=== PATIENT | female | born 1960 | race Caucasian/White ===

== ENCOUNTER 2016-09-04 20:35 | Emergency (ER) | payer SELFPAY ==
[~2016-09-04] VITALS: Ht 172.7 cm; Wt 54.5 kg
[~2016-09-04 20:35] MED LIST: BACTRIM DS 8001 TAB PO; CEPHALEXIN500 M1 PO; FLOVENT 110MCG7.9 GM IH; FOLIC ACID 11 MG/TA1 PO; LORTAB 5/500 501 TAB PO; MULTI VITAMINS1 TAB PO; NATURE'S BLEND100 M2 PO; PREDNISONE20 MG PO; PROVENTIL0.09 MG/A1 IH; TENORMIN 2525 MG/TAB PO; VENTOLIN0.09 MG IH
[2016-09-04 20:36] VITALS: PULSE 100; TEMP 98.1
[2016-09-04] MEDS ORDERED: ULTRAM 50MG TAB50 MG PO (21:12)
[2016-09-04 22:34] VITALS: BP 127/88
== END 2016-09-04 22:48 | disposition home or self-care (01) ==
LOC: COL.ER 20:35
DX: F10.120 Alcohol abuse with intoxication, uncomplicated (principal); Y90.8 Blood alcohol level of 240 mg/100 ml or more; M25.552 Pain in left hip; W01.198A Fall on same level from slipping, tripping and stumbling with subsequent striking against other object, initial encounter; Y92.009 Unspecified place in unspecified non-institutional (private) residence as the place of occurrence of the external cause; I10 Essential (primary) hypertension
CPT/HCPCS: J1885

== ENCOUNTER 2017-10-26 15:58 | Inpatient (IN) | payer SELFPAY ==
[~2017-10-26] VITALS: Ht 175.3 cm; Wt 55.9 kg
[~2017-10-26 15:58] MED LIST changes: +ULTRAM 50MG TAB50 MG PO
[2017-10-26 16:50] LABS: BASO # 0.1 (0.0-0.2); BASO % 1.2 % (0.0-2.0); EOS # 0.1 (0.0-0.7); EOS % 1.6 % (0-4.0); GRAN # 1.8 (1.4-6.5); GRAN % 41.6 % (42.2-75.2); HEMATOCRIT 40.7 % (37.0-47.0); HEMOGLOBIN 14.1 g/dl (12.5-16.0); LYMPH % 46.4 % (20.0-51.0); MEAN CELL VOLUME 100 fl (80.0-100.0); MEAN CORPUSCULAR HEMOGLOBIN 35 pg (27.0-31.0); MEAN CORPUSCULAR HGB CONC 35 g/dl (33.0-37.0); MONO # 0.4 (0.1-0.6); MONO % 8.7 % (1.7-9.3); PLATELET COUNT 120 K/mm3 (130-400); RED BLOOD COUNT 4.09 M/mm3 (4.10-5.30); REDCELL DISTRIBUTION WIDTH-CV 17.7 % (11.5-14.5)
[2017-10-26] MEDS ORDERED: PREDNISONE20 MG PO (17:52)
[2017-10-26] MEDS ORDERED: PROVENTIL0.09 MG/A1 IH (17:52)
[2017-10-26 17:57] LABS: INR 0.9 (0.8-3.0); PROTHROMBIN TIME 10.9 SECONDS (9.7-12.8)
[2017-10-26 18:00] LABS: PARTIAL THROMBOPLASTIN TIME 32.6 SECONDS (26.0-37.0)
[2017-10-26 18:01] LABS: ALANINE AMINOTRANSFERASE 228 U/L (9-52); ALBUMIN 4.6 gm/dL (3.5-5.0); ALKALINE PHOSPHATASE 134 U/L (50-136); ANION GAP 19 mmol/L (7-16); AST,SGOT 309 U/L (15-37); BILIRUBIN,TOTAL 0.6 mg/dL (0.0-1.0); BLOOD UREA NITROGEN 10 mg/dL (7-17); CALCIUM 8.7 mg/dL (8.4-10.2); CARBON DIOXIDE 26 mmol/L (22-30); CHLORIDE 98 mmol/L (98-107); CREATININE, serum 0.55 mg/dL (0.52-1.25); GLUCOSE 80 mg/dL (74-106); POTASSIUM 4.2 mmol/L (3.4-5.0); SODIUM 142 mmol/L (137-145); TOTAL PROTEIN 7.8 gm/dL (6.4-8.2)
[2017-10-26 18:09] LABS: ALCOHOL(ethanol),MEDICAL 370 mg/dL
[2017-10-26 18:12] LABS: TROPONIN-I < 0.012 ng/mL (0.000-0.034)
[2017-10-26 20:40] VITALS: BP 141/84; PULSE 111; TEMP 98.8
[2017-10-26] MEDS ORDERED: MULTI VITAMINS1 TAB PO (20:50)
[2017-10-26] MEDS ORDERED: ADVIL200 MG PO (20:51)
[2017-10-26 21:09] LABS: ARTERIAL BLD GAS O2 SATURATION 95.7 % (92-100); ARTERIAL BLD GAS TCO2 CT 20.4; ARTERIAL BLOOD GAS BASE EXCESS -6.2 (-2-2); ARTERIAL BLOOD GAS HCO3 19.2 meq/L (22-26); ARTERIAL BLOOD GAS PCO2 37.7 mmHg (35-45); ARTERIAL BLOOD GAS PO2 89.3 mmHg (80-100); ARTERIAL BLOOD GAS pH 7.33 (7.35-7.45)
[2017-10-26 22:44] VITALS: BP 91/75; PULSE 110; TEMP 98.8
[2017-10-26 23:25] LABS: COLLECTION METHOD CLEAN CATCH
[2017-10-26 23:36] LABS: MUCOUS Present /lpf; PH 5 (5-8); SQUAMOUS EPITHELIAL 0-2 /hpf; URINE APPEARANCE Clear; URINE BACTERIA None Seen /hpf; URINE BILIRUBIN Negative (NEGATIVE); URINE BLOOD 1+ (NEGATIVE); URINE COLOR Yellow; URINE GLUCOSE Negative (NEGATIVE); URINE KETONE 2+ (NEGATIVE); URINE LEUKOCYTE ESTERASE Negative (NEGATIVE); URINE NITRATE Negative (NEGATIVE); URINE PROTEIN(semi-quant) Negative (NEGATIVE); URINE RBC 0-2 /hpf; URINE UROBILINOGEN Negative (NEGATIVE); URINE WBC 0-2 /hpf
[2017-10-26 23:55] LABS: TRICYCLIC ANTIDEPRESS URINE NEGATIVE
[2017-10-27] VITALS (12 sets, daily range): BP systolic 94–148; BP diastolic 52–95; PULSE 102–123; TEMP 98.1–99.4
[2017-10-27 06:25] LABS: MEAN CELL VOLUME 101 fl (80.0-100.0); MEAN CORPUSCULAR HGB CONC 34 g/dl (33.0-37.0); MEAN PLATELET VOLUME 10.8 fl (7.4-10.4); PLATELET COUNT 84 K/mm3 (130-400); RED BLOOD COUNT 3.41 M/mm3 (4.10-5.30); REDCELL DISTRIBUTION WIDTH-CV 17.4 % (11.5-14.5)
[2017-10-27 06:35] LABS: HEMATOCRIT 34.4 % (37.0-47.0); HEMOGLOBIN 11.8 g/dl (12.5-16.0); MEAN CORPUSCULAR HEMOGLOBIN 35 pg (27.0-31.0)
[2017-10-27 06:36] LABS: BILIRUBIN,TOTAL 0.7 mg/dL (0.0-1.0); CALCIUM 7.6 mg/dL (8.4-10.2); CREATININE, serum 0.51 mg/dL (0.52-1.25); POTASSIUM 4.1 mmol/L (3.4-5.0); TOTAL PROTEIN 6.9 gm/dL (6.4-8.2)
[2017-10-27 07:55] LABS: ANISOCYTOSIS 2+; BAND 8 % (0-10); LYMPHOCYTE 8 % (20.0-51.0); NEUTROPHILS 84 % (42.0-75.2); NUCLEATED RED BLOOD CELL 1 (0-6); PLATELET ESTIMATE DECREASED (NORMAL)
[2017-10-28] VITALS (7 sets, daily range): BP systolic 122–155; BP diastolic 65–103; PULSE 109–132; TEMP 98.1–98.9
[2017-10-28 06:35] LABS: BASO % 0.2 % (0.0-2.0); GRAN # 5.1 (1.4-6.5); GRAN % 88.2 % (42.2-75.2); HEMOGLOBIN 12.2 g/dl (12.5-16.0); LYMPH # 0.2 (1.2-3.4); MEAN CELL VOLUME 99 fl (80.0-100.0); MEAN CORPUSCULAR HEMOGLOBIN 34 pg (27.0-31.0); MEAN CORPUSCULAR HGB CONC 34 g/dl (33.0-37.0); MEAN PLATELET VOLUME 11.1 fl (7.4-10.4); MONO # 0.4 (0.1-0.6); MONO % 6.9 % (1.7-9.3); PLATELET COUNT 78 K/mm3 (130-400); REDCELL DISTRIBUTION WIDTH-CV 16.6 % (11.5-14.5)
[2017-10-28 06:52] LABS: HEMATOCRIT 35.5 % (37.0-47.0)
[2017-10-28 06:55] LABS: CALCIUM 8.9 mg/dL (8.4-10.2); CREATININE, serum 0.53 mg/dL (0.52-1.25); POTASSIUM 3.1 mmol/L (3.4-5.0)
== END 2017-10-28 14:54 | disposition left against medical advice (07) | DRG 191 ==
LOC: COL.ER 15:58 → MEDICAL 19:32
PROVIDERS: Family Medicine; Nurse Practitioner Family; Physician Assistant
DX: J44.1 Chronic obstructive pulmonary disease with (acute) exacerbation (principal); F10.239 Alcohol dependence with withdrawal, unspecified; R91.1 Solitary pulmonary nodule; R26.9 Unspecified abnormalities of gait and mobility; R00.0 Tachycardia, unspecified; F17.210 Nicotine dependence, cigarettes, uncomplicated; Y90.8 Blood alcohol level of 240 mg/100 ml or more
CPT/HCPCS: 99232-AI; 99238; C9113; G0378; J1650; J1956; J2405; J2930; J7030; J7512; Q9967

== ENCOUNTER 2018-03-12 18:36 | Emergency (ER) | payer SELFPAY ==
[~2018-03-12] VITALS: Ht 175.3 cm; Wt 54.5 kg
[~2018-03-12 18:36] MED LIST changes: +ADVIL200 MG PO
[2018-03-12 18:37] VITALS: TEMP 98.6
[2018-03-12 19:27] LABS: BASO % 0.6 % (0.0-2.0); EOS # 0.1 (0.0-0.7); EOS % 1.8 % (0-4.0); GRAN # 2.5 (1.4-6.5); GRAN % 38.2 % (42.2-75.2); HEMATOCRIT 40.1 % (37.0-47.0); LYMPH # 3.5 (1.2-3.4); LYMPH % 53.2 % (20.0-51.0); MEAN CELL VOLUME 99 fl (80.0-100.0); MEAN CORPUSCULAR HEMOGLOBIN 35 pg (27.0-31.0); MEAN CORPUSCULAR HGB CONC 35 g/dl (33.0-37.0); MEAN PLATELET VOLUME 10.7 fl (7.4-10.4); MONO # 0.4 (0.1-0.6); PLATELET COUNT 156 K/mm3 (130-400); RED BLOOD COUNT 4.06 M/mm3 (4.10-5.30); REDCELL DISTRIBUTION WIDTH-CV 14.6 % (11.5-14.5)
[2018-03-12 19:32] LABS: PROTHROMBIN TIME 10.8 SECONDS (9.7-12.8)
[2018-03-12 19:38] LABS: ALANINE AMINOTRANSFERASE 68 U/L (9-52); ALBUMIN 4.3 gm/dL (3.5-5.0); ALKALINE PHOSPHATASE 84 U/L (50-136); ANION GAP 15 mmol/L (7-16); AST,SGOT 85 U/L (15-37); BILIRUBIN,TOTAL 0.3 mg/dL (0.0-1.0); BLOOD UREA NITROGEN 14 mg/dL (7-17); CALCIUM 10.3 mg/dL (8.4-10.2); CARBON DIOXIDE 25 mmol/L (22-30); CHLORIDE 103 mmol/L (98-107); CREATININE, serum 0.73 mg/dL (0.52-1.25); GLUCOSE 101 mg/dL (74-106); POTASSIUM 4.2 mmol/L (3.4-5.0); SODIUM 143 mmol/L (137-145); TOTAL PROTEIN 8.1 gm/dL (6.4-8.2)
[2018-03-12 19:50] LABS: TROPONIN-I < 0.012 ng/mL (0.000-0.034)
[2018-03-12] MEDS ORDERED: ZITHROMAX Z PA250 MG PO (20:54)
[2018-03-12] MEDS ORDERED: PREDNISONE20 MG PO (20:54)
[2018-03-12 21:32] VITALS: BP 131/71; PULSE 92
== END 2018-03-12 21:32 | disposition home or self-care (01) ==
LOC: COL.ER 18:36
PROVIDERS: Emergency Medicine
DX: J45.901 Unspecified asthma with (acute) exacerbation (principal); F17.210 Nicotine dependence, cigarettes, uncomplicated
CPT/HCPCS: J2930; J3105; J3475; J7030

== ENCOUNTER → 2018-04-21 | Outpatient (CLI) | payer SELFPAY ==
[~2018-04-21] MED LIST changes: +ZITHROMAX Z PA250 MG PO
== END ==
LOC: COL.RAD 09:27
DX: R91.1 Solitary pulmonary nodule (principal)
CPT/HCPCS: Q9967

== ENCOUNTER 2018-04-23 18:43 | Emergency (ER) | payer SELFPAY ==
[~2018-04-23] VITALS: Ht 175.3 cm; Wt 55.9 kg
[2018-04-23] MEDS ORDERED: MULTI VITAMINS1 TAB PO (19:01)
[2018-04-23 19:42] LABS: BASO % 0.7 % (0.0-2.0); EOS # 0.2 (0.0-0.7); EOS % 4.4 % (0-4.0); GRAN # 1.5 (1.4-6.5); GRAN % 32.1 % (42.2-75.2); HEMOGLOBIN 12.6 g/dl (12.5-16.0); LYMPH # 2.6 (1.2-3.4); LYMPH % 57.1 % (20.0-51.0); MEAN CELL VOLUME 100 fl (80.0-100.0); MEAN CORPUSCULAR HEMOGLOBIN 35 pg (27.0-31.0); MEAN CORPUSCULAR HGB CONC 35 g/dl (33.0-37.0); MEAN PLATELET VOLUME 11.1 fl (7.4-10.4); MONO # 0.3 (0.1-0.6); MONO % 5.7 % (1.7-9.3); PLATELET COUNT 131 K/mm3 (130-400); RED BLOOD COUNT 3.64 M/mm3 (4.10-5.30); REDCELL DISTRIBUTION WIDTH-CV 15.5 % (11.5-14.5)
[2018-04-23 19:47] LABS: HEMATOCRIT 36.5 % (37.0-47.0)
[2018-04-23 19:52] LABS: TRICYCLIC ANTIDEPRESS URINE NEGATIVE
[2018-04-23 19:54] LABS: ALANINE AMINOTRANSFERASE 90 U/L (9-52); ALBUMIN 4.2 gm/dL (3.5-5.0); ALKALINE PHOSPHATASE 77 U/L (50-136); ANION GAP 15 mmol/L (7-16); AST,SGOT 118 U/L (15-37); BILIRUBIN,TOTAL 0.3 mg/dL (0.0-1.0); BLOOD UREA NITROGEN 7 mg/dL (7-17); CALCIUM 8.9 mg/dL (8.4-10.2); CARBON DIOXIDE 26 mmol/L (22-30); CHLORIDE 104 mmol/L (98-107); CREATININE, serum 0.62 mg/dL (0.52-1.25); GLUCOSE 87 mg/dL (74-106); SODIUM 145 mmol/L (137-145); TOTAL PROTEIN 7.6 gm/dL (6.4-8.2)
[2018-04-23 20:10] LABS: ACETAMINOPHEN < 10 ug/mL (10-30); ALCOHOL(ethanol),MEDICAL 397 mg/dL; SALICYLATE < 1.0 mg/dL
[2018-04-24 06:15] VITALS: BP 154/90; TEMP 99.3
[2018-04-24 07:54] VITALS: PULSE 90
== END 2018-04-24 07:59 | disposition home or self-care (01) ==
LOC: COL.ER 18:43
PROVIDERS: Emergency Medicine
DX: F10.229 Alcohol dependence with intoxication, unspecified (principal); R45.851 Suicidal ideations; F32.9 Major depressive disorder, single episode, unspecified; J45.909 Unspecified asthma, uncomplicated; F17.210 Nicotine dependence, cigarettes, uncomplicated

== ENCOUNTER 2018-05-21 12:55 | Emergency (ER) | payer SELFPAY ==
[~2018-05-21] VITALS: Ht 175.3 cm; Wt 55.9 kg
[2018-05-21 12:59] VITALS: BP 144/91; TEMP 98
[2018-05-21 14:35] VITALS: PULSE 86
== END 2018-05-21 14:36 | disposition home or self-care (01) ==
LOC: COL.ER 12:55
DX: S01.82XA Laceration with foreign body of other part of head, initial encounter (principal); F17.210 Nicotine dependence, cigarettes, uncomplicated; W01.198A Fall on same level from slipping, tripping and stumbling with subsequent striking against other object, initial encounter; Y92.009 Unspecified place in unspecified non-institutional (private) residence as the place of occurrence of the external cause

== ENCOUNTER 2018-06-01 19:22 | Emergency (ER) | payer SELFPAY ==
[~2018-06-01] VITALS: Ht 175.3 cm; Wt 55.9 kg
[2018-06-01 19:24] VITALS: TEMP 97
[2018-06-01] MEDS ORDERED: PROAIR HFA0.09 MG/AC IH (19:32)
[2018-06-01 22:00] VITALS: BP 129/83; PULSE 85
[2018-06-01] MEDS ORDERED: PREDNISONE10 MG PO (22:28)
== END 2018-06-01 22:00 | disposition home or self-care (01) ==
LOC: COL.ER 19:22
DX: J45.901 Unspecified asthma with (acute) exacerbation (principal); F17.210 Nicotine dependence, cigarettes, uncomplicated; F41.9 Anxiety disorder, unspecified; F10.129 Alcohol abuse with intoxication, unspecified
CPT/HCPCS: J7512

== ENCOUNTER 2018-08-14 12:29 | Emergency (ER) | payer SELFPAY ==
[~2018-08-14] VITALS: Ht 175.3 cm; Wt 56.8 kg
[~2018-08-14 12:29] MED LIST changes: +PREDNISONE10 MG PO; +PROAIR HFA0.09 MG/AC IH
[2018-08-14 12:35] VITALS: BP 139/100; TEMP 97
[2018-08-14] MEDS ORDERED: NEURONTIN300 MG/CAP PO (13:04)
[2018-08-14] MEDS ORDERED: ATARAX 25MG25 MG/TAB PO (13:59)
[2018-08-14] MEDS ORDERED: PREDNISONE20 MG PO (13:59)
[2018-08-14] MEDS ORDERED: ZYRTEC 10MG10 MG PO (13:59)
[2018-08-14 14:08] VITALS: PULSE 96
== END 2018-08-14 14:09 | disposition home or self-care (01) ==
LOC: COL.ER 12:29
DX: L30.9 Dermatitis, unspecified (principal); J45.909 Unspecified asthma, uncomplicated; F17.210 Nicotine dependence, cigarettes, uncomplicated

== ENCOUNTER 2018-10-15 14:23 | Inpatient (IN) | payer OTHER ==
[~2018-10-15] VITALS: Ht 175.3 cm; Wt 57.1 kg
[~2018-10-15 14:23] MED LIST changes: +ATARAX 25MG25 MG/TAB PO; +NEURONTIN300 MG/CAP PO; +ZYRTEC 10MG10 MG PO
[2018-10-15 14:58] LABS: HEMATOCRIT 41.5 % (37.0-47.0); HEMOGLOBIN 14.3 g/dl (12.5-16.0); MEAN CELL VOLUME 104 fl (80.0-100.0); MEAN CORPUSCULAR HEMOGLOBIN 36 pg (27.0-31.0); MEAN CORPUSCULAR HGB CONC 35 g/dl (33.0-37.0); MEAN PLATELET VOLUME 10.3 fl (7.4-10.4); PLATELET COUNT 62 K/mm3 (130-400); REDCELL DISTRIBUTION WIDTH-CV 18.5 % (11.5-14.5)
[2018-10-15 15:08] LABS: ALANINE AMINOTRANSFERASE 145 U/L (9-52); ALBUMIN 4.1 gm/dL (3.5-5.0); ALKALINE PHOSPHATASE 196 U/L (50-136); ANION GAP 15 mmol/L (7-16); AST,SGOT 559 U/L (15-37); BILIRUBIN,TOTAL 1.3 mg/dL (0.0-1.0); BLOOD UREA NITROGEN 8 mg/dL (7-17); CALCIUM 8.5 mg/dL (8.4-10.2); CARBON DIOXIDE 29 mmol/L (22-30); CHLORIDE 98 mmol/L (98-107); GLUCOSE 69 mg/dL (74-106); POTASSIUM 3.7 mmol/L (3.4-5.0); SODIUM 143 mmol/L (137-145); TOTAL PROTEIN 7.7 gm/dL (6.4-8.2)
[2018-10-15 15:20] LABS: TROPONIN-I < 0.012 ng/mL (0.000-0.035)
[2018-10-15 15:22] LABS: BAND 4 % (0-10); BASOPHIL 2 % (0-2); EOSINOPHIL 2 % (0-4); LYMPHOCYTE 43 % (20.0-51.0); NEUTROPHILS 47 % (42.0-75.2)
[2018-10-15 15:23] LABS: PLATELET ESTIMATE DECREASED (NORMAL)
[2018-10-15 15:24] LABS: ANISOCYTOSIS 2+; MICROCYTOSIS 1+; TARGET CELLS 2+
[2018-10-15 15:25] LABS: STOMATOCYTE 2+
[2018-10-15 16:20] LABS: ARTERIAL BLD GAS O2 SATURATION 91.3 % (92-100); ARTERIAL BLD GAS TCO2 CT 27.1; ARTERIAL BLOOD GAS BASE EXCESS -1.1 (-2-2); ARTERIAL BLOOD GAS HCO3 25.6 meq/L (22-26); ARTERIAL BLOOD GAS PCO2 50.8 mmHg (35-45); ARTERIAL BLOOD GAS PO2 78.2 mmHg (80-100); ARTERIAL BLOOD GAS pH 7.32 (7.35-7.45)
[2018-10-15 17:49] VITALS: BP 126/95; PULSE 100; TEMP 97.9
[2018-10-15] MEDS ORDERED: MULTI VITAMINS1 TAB PO (17:59)
--- NOTE | 2018-10-15 18:15 | NUR ---
pT arrived to unit, A+Ox3, pleasant, denies pain, denies SOB but is audibly SOB with speech. 6 L via oxymask applied at this time, this RN called RT to request Bipap per orders. Lungs are very coarse and wheezey throughout. Pt has rash with non-raised red broad splotches across back, front torso, arms, and ears. Pt reports this is new as of 1-2 weeks ago, and itches terribly despite three home meds prescribed by PCP for this. She needs to see employment training specialist but has no insurance. Physical assessment completed. IV free of redness, swelling, fluids infusing to RAC. No further needs, will continue to monitor
[2018-10-15 18:51] VITALS: BP 131/82; PULSE 106; TEMP 97.6
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
--- NOTE | 2018-10-15 19:58 | NUR ---
Report given to Ugo MERAZ
--- NOTE | 2018-10-15 20:23 | NUR ---
Pt resting in bed napping, no C/O pain, shift assessment complete, left Pt call light in reach, bed in lowest position.
[2018-10-15 20:45] LABS: PROTHROMBIN TIME 11.6 SECONDS (9.7-12.8)
[2018-10-15 23:37] VITALS: BP 130/87; PULSE 103; TEMP 97.9
[2018-10-16] VITALS (8 sets, daily range): BP systolic 118–154; BP diastolic 67–902; PULSE 95–125; TEMP 98.1–99.3
--- NOTE | 2018-10-16 06:37 | NUR ---
Pt slept well during the night, she has been tolerating the BIPAP well, no C/O pain, VS have remained stable.
[2018-10-16 07:42] LABS: HIV 1/2 Antibodies Non-Reactive; HIV-1p24 Antigen Non-Reactive
--- NOTE | 2018-10-16 08:05 | NUR ---
Asssessment completed, alert/oriented, patient still having labored breathing but stated it is improved from yesterday, has some bilateral wheezing noted and diminished bases, wore bi-pap during the night and is now back on 6L.OM and sats WNL, She scored and 7 on ETOH DETOX scale this morning for Tachycardia/ HTN/ visible Tremors/ Anxiety, I gave 1 mg IV Ativan per protocol, heart regular / ST 120 on tele, in droplet precautions for pending RVP, helped her order breakfast, denies othe needs at this time
[2018-10-16 09:01] LABS: ARTERIAL BLD GAS O2 SATURATION 93.2 % (92-100); ARTERIAL BLD GAS TCO2 CT 21.9; ARTERIAL BLOOD GAS BASE EXCESS -3.3 (-2-2); ARTERIAL BLOOD GAS HCO3 20.9 meq/L (22-26); ARTERIAL BLOOD GAS PCO2 34.6 mmHg (35-45); ARTERIAL BLOOD GAS PO2 74.8 mmHg (80-100)
[2018-10-16 13:03] LABS: BASO % 0.3 % (0.0-2.0); EOS % 0.3 % (0-4.0); GRAN # 3.1 (1.4-6.5); GRAN % 85.2 % (42.2-75.2); LYMPH # 0.3 (1.2-3.4); LYMPH % 8.9 % (20.0-51.0); MEAN CELL VOLUME 102 fl (80.0-100.0); MEAN CORPUSCULAR HGB CONC 35 g/dl (33.0-37.0); MEAN PLATELET VOLUME 11.1 fl (7.4-10.4); MONO # 0.2 (0.1-0.6); MONO % 4.7 % (1.7-9.3); PLATELET COUNT 50 K/mm3 (130-400); RED BLOOD COUNT 3.36 M/mm3 (4.10-5.30); REDCELL DISTRIBUTION WIDTH-CV 18.1 % (11.5-14.5)
[2018-10-16 13:09] LABS: HEMATOCRIT 34.3 % (37.0-47.0); MEAN CORPUSCULAR HEMOGLOBIN 36 pg (27.0-31.0)
[2018-10-16 13:14] LABS: ALBUMIN 3.4 gm/dL (3.5-5.0); CALCIUM 7.6 mg/dL (8.4-10.2); CREATININE, serum 0.64 mg/dL (0.52-1.25); MAGNESIUM 1.1 mg/dL (1.6-2.3); TOTAL PROTEIN 6.5 gm/dL (6.4-8.2)
[2018-10-16 13:27] LABS: BILIRUBIN UNCONJUGATED 0.6 mg/dL (0.0-1.1); BILIRUBIN,DIRECT 0.7 mg/dL (0.0-0.4); BILIRUBIN,TOTAL 1.3 mg/dL (0.0-1.0)
--- NOTE | 2018-10-16 14:25 | NUR ---
Patient lives at home with her (Rohit) between [place], [place] and plans to return home upon discharge. Patient is independent with daily living activities and does not have durable medical equipment usage or needs at this time, her primary care physician is Chen Jimenes, her [facility] is [facility], and she does not have DPOA-HC completed at this time. Patient is currently unemployed and is self-pay. medical services manager and the [facility] financial department will follow as needed.
[2018-10-16 16:40] LABS: HEPATITIS B SURFACE ANTIGEN Negative (Negative)
[2018-10-16 16:55] LABS: HEPATITIS B SURFACE ANTIBODY <2.0 (())
--- NOTE | 2018-10-16 19:12 | NUR ---
Gave patient Sirax at 1645, will hold off on giving more Ativan with his 1800 CIWA protocol , will have night nurse reassess at 1999
--- NOTE | 2018-10-16 21:06 | NUR ---
Patient assessed at this time. Was sleeping when this nurse entered room. No tremors noted. Awakened easily to verbal stimuli. Tremors when awake. Heart rate was in the 120s, and systolic BP was in the 140s. Temp 99. Given scheduled Serex, will reassess during 2200 check. Denies having pain and discomfort at this time. Oxygen on at 2 L/min via oxi mask. Declined wanting to try NC and BIPAP when RT was talking with her. Declined for this nurse as well. Denies having SOB and dyspnea. LS CTA. Respirations are even and unlabored. NS running at 75 ml/hr to right AC. Assisted to the commode at the beginning of shift, around 1900. Very unsteady. Unable to come to a full, upright standing position. Denies having needs at this time. Resting in bed with eyes closed at this time. Head of bed elevated. Call light is within reach.
[2018-10-17 01:57] VITALS: BP 128/93; PULSE 100; TEMP 98.1
[2018-10-17 03:32] VITALS: BP 129/95; PULSE 101; TEMP 98.2
--- NOTE | 2018-10-17 04:12 | NUR ---
Patient ambulated to bathroom as requested with two assist and use of gait belt. Patient did well. Gait was slowy and unsteady, but did stand straig. Non-skid socks applied. Urine dark yellow and clear. Ambulated with one assist back to bed when done. NS continues at 75 ml/hr to right AC. Continues to wear oxygen at 2 L/min via oxymask. Patient's tremors have decreased to minimal. Heart rate has been around 100. Systolic BP has been in the 120s, but dyastolic has been in the 90s. No further temperatures of 99 or higher. No diaphoresis. Denies having anxiety. Has been able to rest in bed with eyes closed most of this shift, since receiving Ativan around 2230. Resting in bed with eyes closed at this time. Call light is within reach.
[2018-10-17 05:04] VITALS: BP 147/90; PULSE 96; TEMP 98
--- NOTE | 2018-10-17 06:01 | NUR ---
Patient scored a 4 with latest alcohol detox screen. Given PRN 0.5mg Ativan IV per order. Patient's BP has increased to 140s over 90s. Patient's tremors have increased as well. Patient reports tremors do increase for her when she is awake compared to when she is asleep. Denies having any needs at this time. Call light is within reach.
[2018-10-17 07:09] LABS: HEMOGLOBIN 12.5 g/dl (12.5-16.0); MEAN CELL VOLUME 102 fl (80.0-100.0); MEAN CORPUSCULAR HEMOGLOBIN 36 pg (27.0-31.0); MEAN CORPUSCULAR HGB CONC 35 g/dl (33.0-37.0); MEAN PLATELET VOLUME 11.6 fl (7.4-10.4); PLATELET COUNT 51 K/mm3 (130-400); RED BLOOD COUNT 3.46 M/mm3 (4.10-5.30); REDCELL DISTRIBUTION WIDTH-CV 17.9 % (11.5-14.5)
[2018-10-17 07:18] LABS: ALBUMIN 3.3 gm/dL (3.5-5.0); BILIRUBIN UNCONJUGATED 0.7 mg/dL (0.0-1.1); BILIRUBIN,DIRECT 0.7 mg/dL (0.0-0.4); BILIRUBIN,TOTAL 1.4 mg/dL (0.0-1.0); CALCIUM 7.7 mg/dL (8.4-10.2); CREATININE, serum 0.46 mg/dL (0.52-1.25); POTASSIUM 3.8 mmol/L (3.4-5.0); TOTAL PROTEIN 6.7 gm/dL (6.4-8.2)
[2018-10-17 07:22] LABS: HEMATOCRIT 35.3 % (37.0-47.0)
[2018-10-17 07:30] LABS: MAGNESIUM 2.1 mg/dL (1.6-2.3); PHOSPHOROUS 1.5 mg/dL (2.5-4.5)
[2018-10-17 07:38] VITALS: BP 144/94; PULSE 100; TEMP 98.5
--- NOTE | 2018-10-17 07:54 | NUR ---
Resting in bed at this time. No pain or needs reported. The call light is in place.
[2018-10-17 10:24] VITALS: BP 149/83; PULSE 116; TEMP 97.4
[2018-10-17] MEDS ORDERED: LEVAQUIN 5500 MG/TA1 PO (10:34)
[2018-10-17] MEDS ORDERED: INCRUSE EL62.5 MCG/A IH ×2 (10:34)
[2018-10-17] MEDS ORDERED: PROAIR HFA0.09 MG/AC IH (10:35)
[2018-10-17] MEDS ORDERED: SALMETEROL IH (10:36)
[2018-10-17] MEDS ORDERED: FLUTICASONE IH (10:36)
[2018-10-17] MEDS ORDERED: DALIRESP500 MCG PO (10:37)
[2018-10-17] MEDS ORDERED: FOLIC ACID 11 MG/TA1 PO (10:37)
[2018-10-17] MEDS ORDERED: THIAMINE 1100 MG/TAB PO (10:37)
[2018-10-17] MEDS ORDERED: PREDNISONE10 MG PO (10:39)
--- NOTE | 2018-10-17 12:15 | NUR ---
SPO2 93% ON ROOM AIR. PT WALKED WITH RT AND RN APPROX 100 FEET. VERY UNSTEADY ON HER FEET. SPO2 88% AFTER ABOUT 50 FT. O2 BACK ON @ 2 LPM VIA OXYMASK.
[2018-10-17 12:28] LABS: BAND 8 % (0-10); HYPOCHROMIA 1+; LYMPHOCYTE 7 % (20.0-51.0); NEUTROPHILS 83 % (42.0-75.2); PLATELET ESTIMATE DECREASED (NORMAL)
--- NOTE | 2018-10-17 14:19 | NUR ---
PERFECTO informed patient is discharging AMA today and will need home O2. PERFECTO met with patient about DME choice. Patient chose [facility] because they accept financial assistance. PERFECTO faxed O2 order to [facility].
[2018-10-17] MEDS ORDERED: RT ADVAIR 228 DISKUS IH (15:08)
[2018-10-17] MEDS ORDERED: RT SPIRIVA18 MCG IH (15:08)
--- NOTE | 2018-10-17 16:11 | NUR ---
Pt very shaky, anxious to leave. Pt is leaving AMA. New prescriptions and home oxygen have been arranged for pt. Reviewed new medications. Pt information sheets on all meds and diagnoses given to pt. Encouraged pt to follow up with her PCP and to call PCP with any increase in symptoms. Pt verbalizes understanding. Pt escorted to private vehicle via wheelchair by JOELLE.
--- NOTE | 2018-10-17 17:28 | NUR ---
KT Luz assisted with DC process. The patient continued to show weakness and loss of balance but refused to stay in the hospital. Oxygen was set up for home and medication provided to the patient's pharmacy.
[2018-10-19 19:40] LABS: A1 PHENOTYPE 182 mg/dL (())
== END 2018-10-17 18:22 | disposition left against medical advice (07) | DRG 189 ==
LOC: COL.ER 14:23 → MEDICAL 16:10
PROVIDERS: Emergency Medicine; Internal Medicine Pulmonary Disease; ADMIT Hospitalist
DX: J96.01 Acute respiratory failure with hypoxia (principal); J44.1 Chronic obstructive pulmonary disease with (acute) exacerbation; E87.2 Acidosis; F10.239 Alcohol dependence with withdrawal, unspecified; J96.02 Acute respiratory failure with hypercapnia; F17.210 Nicotine dependence, cigarettes, uncomplicated; Z23 Encounter for immunization; L30.9 Dermatitis, unspecified; D69.6 Thrombocytopenia, unspecified; Y90.8 Blood alcohol level of 240 mg/100 ml or more; E83.42 Hypomagnesemia
CPT/HCPCS: 99222-AI; 99232-AI; 99239; J1956; J2060; J2920; J2930; J3475; J7030; J7512

== ENCOUNTER 2018-12-09 15:31 | Inpatient (IN) | payer OTHER ==
[2018-12-09] VITALS (120 sets, daily range): BP systolic 123; BP diastolic 81; PULSE 97; TEMP 98.9; O2SAT 94–99
[~2018-12-09] VITALS: Ht 175.3 cm; Wt 65.4 kg
[~2018-12-09 15:31] MED LIST changes: +DALIRESP500 MCG PO; +FLUTICASONE IH; +INCRUSE EL62.5 MCG/A IH; +LEVAQUIN 5500 MG/TA1 PO; +RT ADVAIR 228 DISKUS IH; +RT SPIRIVA18 MCG IH; +SALMETEROL IH; +THIAMINE 1100 MG/TAB PO
[2018-12-09 16:49] LABS: BASO # 0.1 (0.0-0.2); BASO % 1.2 % (0.0-2.0); EOS % 0.3 % (0-4.0); GRAN # 4.5 (1.4-6.5); GRAN % 62.7 % (42.2-75.2); HEMATOCRIT 40.2 % (37.0-47.0); HEMOGLOBIN 13.8 g/dl (12.5-16.0); LYMPH % 28.3 % (20.0-51.0); MEAN CELL VOLUME 104 fl (80.0-100.0); MEAN CORPUSCULAR HEMOGLOBIN 36 pg (27.0-31.0); MEAN CORPUSCULAR HGB CONC 34 g/dl (33.0-37.0); MEAN PLATELET VOLUME 10.5 fl (7.4-10.4); MONO # 0.5 (0.1-0.6); MONO % 6.8 % (1.7-9.3); PLATELET COUNT 117 K/mm3 (130-400); RED BLOOD COUNT 3.85 M/mm3 (4.10-5.30)
[2018-12-09 16:52] LABS: ARTERIAL BLD GAS O2 SATURATION 96.1 % (92-100); ARTERIAL BLD GAS TCO2 CT 20.5; ARTERIAL BLOOD GAS BASE EXCESS -6.6 (-2-2); ARTERIAL BLOOD GAS HCO3 19.3 meq/L (22-26); ARTERIAL BLOOD GAS PCO2 39.7 mmHg (35-45); ARTERIAL BLOOD GAS PO2 99.3 mmHg (80-100)
[2018-12-09 17:58] LABS: ALANINE AMINOTRANSFERASE 48 U/L (9-52); ALBUMIN 4.7 gm/dL (3.5-5.0); ALKALINE PHOSPHATASE 147 U/L (50-136); ANION GAP 21 mmol/L (7-16); AST,SGOT 117 U/L (15-37); BILIRUBIN,TOTAL 1.2 mg/dL (0.0-1.0); BLOOD UREA NITROGEN 11 mg/dL (7-17); CALCIUM 8.9 mg/dL (8.4-10.2); CARBON DIOXIDE 24 mmol/L (22-30); CHLORIDE 96 mmol/L (98-107); CREATININE, serum 0.64 (0.52-1.25); GLUCOSE 79 mg/dL (74-106); LIPASE 152 U/L (23-300); MAGNESIUM 1.5 mg/dL (1.6-2.3); PHOSPHOROUS 3.5 mg/dL (2.5-4.5); POTASSIUM 4.4 mmol/L (3.4-5.0); SODIUM 141 mmol/L (137-145); TOTAL PROTEIN 8.8 gm/dL (6.4-8.2)
[2018-12-09 18:18] LABS: TROPONIN-I < 0.012 ng/mL (0.000-0.035)
[2018-12-09 18:20] LABS: ALCOHOL(ethanol),MEDICAL 390 mg/dL
--- NOTE | 2018-12-09 19:37 | NUR ---
Telephone report received from KT Balderas.
--- NOTE | 2018-12-09 20:10 | NUR ---
Arrived to the unit via stretcher. Able to transfer X 1 assist to ICU bed. Patient noted to be slightly unsteady with visible tremors. Does report that these tremors are per her baseline. Patient alert and cooperative with cares. Chest tube attached to suction and funcioning properly. Will continue to monitor.
[2018-12-09] MEDS ORDERED: MULTI VITAMINS1 TAB PO (21:36)
[2018-12-09] MEDS ORDERED: ZYRTEC 10MG10 MG PO (21:37)
[2018-12-09 21:40] LABS: PROTHROMBIN TIME 11.8 SECONDS (9.7-12.8)
[2018-12-09 21:42] LABS: PARTIAL THROMBOPLASTIN TIME 34.4 SECONDS (26.0-37.0)
[2018-12-10] VITALS (1011 sets, daily range): BP systolic 110–145; BP diastolic 70–96; PULSE 92–108; TEMP 97.8–98.9; O2SAT 75–100
[2018-12-10 00:32] LABS: COLLECTION METHOD CLEAN CATCH
[2018-12-10 00:38] LABS: MUCOUS Present /lpf; PH 6 (5-8); SQUAMOUS EPITHELIAL 0-2 /hpf; URINE APPEARANCE Clear; URINE BACTERIA None Seen /hpf; URINE BILIRUBIN Negative (NEGATIVE); URINE BLOOD Negative (NEGATIVE); URINE COLOR Yellow; URINE GLUCOSE Negative (NEGATIVE); URINE KETONE 2+ (NEGATIVE); URINE LEUKOCYTE ESTERASE Negative (NEGATIVE); URINE NITRATE Negative (NEGATIVE); URINE PROTEIN(semi-quant) 1+ (NEGATIVE); URINE RBC 0-2 /hpf; URINE UROBILINOGEN Negative (NEGATIVE)
--- NOTE | 2018-12-10 01:05 | NUR ---
Patient requeting a breathing treatment; RT called. States she doesn't feel any more shortness of breath, but just feels like she could use a treatment at this time. Will continue to monitor.
[2018-12-10 03:21] LABS: TRICYCLIC ANTIDEPRESS URINE NEGATIVE
--- NOTE | 2018-12-10 03:35 | NUR ---
Patient continues to report left shoulder pain. States the norco has helped but pain is still present. Offered ice or warm pack and pt denied this. Did accept offer to place pillow under shoulder blade for comfort.
--- NOTE | 2018-12-10 03:45 | NUR ---
Hospitalist notified that patient is still reporting shoulder pain. Also reported UA came back positive for opioids. Hospitalist would like to hold off on administering any more opioids at this time. Can give ativan per CIWA scale for anxiety.
[2018-12-10 04:59] LABS: ARTERIAL BLD GAS TCO2 CT 18.3; ARTERIAL BLOOD GAS BASE EXCESS -8.8 (-2-2); ARTERIAL BLOOD GAS HCO3 17.1 meq/L (22-26); ARTERIAL BLOOD GAS PCO2 37.1 mmHg (35-45); ARTERIAL BLOOD GAS PO2 80.9 mmHg (80-100); ARTERIAL BLOOD GAS pH 7.28 (7.35-7.45)
[2018-12-10 05:09] LABS: BASO % 0.4 % (0.0-2.0); GRAN # 4.5 (1.4-6.5); GRAN % 86.6 % (42.2-75.2); HEMATOCRIT 32.2 % (37.0-47.0); LYMPH # 0.6 (1.2-3.4); LYMPH % 10.6 % (20.0-51.0); MEAN CELL VOLUME 105 fl (80.0-100.0); MEAN CORPUSCULAR HEMOGLOBIN 35 pg (27.0-31.0); MEAN CORPUSCULAR HGB CONC 34 g/dl (33.0-37.0); MEAN PLATELET VOLUME 10.9 fl (7.4-10.4); MONO # 0.1 (0.1-0.6); PLATELET COUNT 82 K/mm3 (130-400); RED BLOOD COUNT 3.08 M/mm3 (4.10-5.30); REDCELL DISTRIBUTION WIDTH-CV 13.8 % (11.5-14.5)
[2018-12-10 05:12] LABS: HEMOGLOBIN 10.9 g/dl (12.5-16.0)
[2018-12-10 05:18] LABS: ALBUMIN 3.8 gm/dL (3.5-5.0); CALCIUM 7.3 mg/dL (8.4-10.2); CREATININE, serum 0.48 (0.52-1.25); MAGNESIUM 1.5 mg/dL (1.6-2.3); POTASSIUM 4.2 mmol/L (3.4-5.0); TOTAL PROTEIN 6.8 gm/dL (6.4-8.2)
--- NOTE | 2018-12-10 07:00 | NUR ---
Bedside report received from KT Green.
--- NOTE | 2018-12-10 08:00 | NUR ---
Assessment complete, patient reports pain 9/10 "when moving, but it comes down when being still." Call light within reach.
--- NOTE | 2018-12-10 09:00 | NUR ---
Patient vomited all over herself/bed, cleaned up, zofran given as ordered.
--- NOTE | 2018-12-10 11:01 | NUR ---
PERFECTO met with the patient to discuss a discharge plan. The patient lives in [place] but states it is closer to [place], with her , Rohit. The patient does not use any DME and the patient reports independence with ADLs. The patient's PCP is Dr. Chen Jimenes and the patient receives her medications from [facility]. The patient reports difficulties affording her medications. PERFECTO will follow-up with medication needs upon discharge. The patient is self-pay; PERFECTO provided the financial assistance form to the patient. The patient does not have advanced directives in the EMR, but she was interested in obtaining a DPOA-HC form. PERFECTO provided the DPOA-HC form to the patient. The patient plans to return home with Rohit upon discharge. PERFECTO will contiue to follow.
--- NOTE | 2018-12-10 11:55 | NUR ---
O2 sats 90% on 2L/NC, O2 increased to 3L/NC.
[2018-12-10 15:04] LABS: FOLATE (FOLIC ACID) 12.5 ng/mL (7.0-31.4)
--- NOTE | 2018-12-10 15:55 | NUR ---
Patient denies needs at this time, call light within reach.
--- NOTE | 2018-12-10 19:00 | NUR ---
Bedside report given to KT Allen.
--- NOTE | 2018-12-10 19:05 | NUR ---
Bedside report received from KT Adams
--- NOTE | 2018-12-10 20:00 | NUR ---
Assessment complete. Patient resting in bed watching tv. Patient has some complaints of sharp pain in her left shoulder/chest where the chest tube is. Rates 6/10 and is requesting medication with her evening meds. Patient is alert and oriented. She is able to assist with getting herself onto the bedpan. Assessment reveals patient being tachycardic but does not appear to be in any distress. Bilaterally her lungs have loud expiratory wheezes in the bases as well as being diminished. Upper lobes are clear bilaterally. Patient has no other needs at this time. Vitals are stable. Will continue to monitor. Call light within reach.
[2018-12-11] VITALS (1243 sets, daily range): BP systolic 111–156; BP diastolic 81–98; PULSE 86–98; TEMP 98.4–98.6; O2SAT 76–100
--- NOTE | 2018-12-11 | NUR ---
Patient resting in bed at this time. States she would like to get ready for bed. Assessment complete. Patient still has loud expiratory wheezes in the bases as well as being diminished. Patient's right upper lobe has inspiratory wheezes. Left upper is clear. No other changes at this time. Patient repositioned for comfort. Will continue to monitor. Call light within reach
--- NOTE | 2018-12-11 04:00 | NUR ---
Patient resting in bed and awakens easily to this nurse entering the room. Patient requests to get up and use the commode instead of the bedpan. Patient was able to stand with assistance of one. Patient is a little wobbly when pivoting and has some trouble with balance. Patient returns to bed. Patient has complaints of 5/10 pain in the left should/chest and is requesting pain medications, to be provided. Patient's chest tube turned off to suction at this time. Patient has no further needs. Will continue to monitor. Call light within reach.
--- NOTE | 2018-12-11 04:50 | NUR ---
Patient's O2 sats have started dropping as low as 90%. Checked in on patient and she is in no distress nor is she having any SOB. Turned O2 up to 4L OM. Will continue to monitor.
[2018-12-11 06:02] LABS: BASO % 0.1 % (0.0-2.0); EOS % 0.1 % (0-4.0); GRAN # 8.2 (1.4-6.5); GRAN % 89.2 % (42.2-75.2); HEMOGLOBIN 11.5 g/dl (12.5-16.0); LYMPH # 0.6 (1.2-3.4); LYMPH % 6.1 % (20.0-51.0); MEAN CELL VOLUME 101 fl (80.0-100.0); MEAN CORPUSCULAR HEMOGLOBIN 35 pg (27.0-31.0); MEAN CORPUSCULAR HGB CONC 35 g/dl (33.0-37.0); MEAN PLATELET VOLUME 11.3 fl (7.4-10.4); MONO # 0.4 (0.1-0.6); PLATELET COUNT 80 K/mm3 (130-400); RED BLOOD COUNT 3.28 M/mm3 (4.10-5.30); REDCELL DISTRIBUTION WIDTH-CV 13.2 % (11.5-14.5)
[2018-12-11 06:06] LABS: HEMATOCRIT 33.1 % (37.0-47.0)
[2018-12-11 06:19] LABS: ALBUMIN 3.8 gm/dL (3.5-5.0); BILIRUBIN,TOTAL 1.3 mg/dL (0.0-1.0); CALCIUM 7.9 mg/dL (8.4-10.2); CREATININE, serum 0.5 (0.52-1.25); MAGNESIUM 1.6 mg/dL (1.6-2.3); POTASSIUM 3.6 mmol/L (3.4-5.0); TOTAL PROTEIN 7.1 gm/dL (6.4-8.2)
--- NOTE | 2018-12-11 07:13 | NUR ---
Bedside report received from KT Allen.
--- NOTE | 2018-12-11 07:20 | NUR ---
Assessment complete, patient denies needs at this time, call light within reach.
--- NOTE | 2018-12-11 07:22 | NUR ---
Bedside report given to KT Adams
--- NOTE | 2018-12-11 11:13 | NUR ---
Patient assisted to bedside commode, patient VERY unsteady on her feet.
--- NOTE | 2018-12-11 18:05 | NUR ---
Patient vomited large amount of undigested food. Zofran given as ordered.
--- NOTE | 2018-12-11 18:42 | NUR ---
Patient states pain "is better, it is now a 7."
--- NOTE | 2018-12-11 19:24 | NUR ---
Bedside report given to KT Elizabeth.
--- NOTE | 2018-12-11 19:25 | NUR ---
Report received from Angie Fong RN.
--- NOTE | 2018-12-11 22:30 | NUR ---
Pt assisted to bedside commode at this time. Pt was noted to be hollering out to nursing staff for attention. Upon arrival pt was noted to be stating things about the pt across the burns needing to be suctioned. When the nurse was talking out in the burns, pt was talking to this nurse about the other nurse talking to this nurse and thinking "we are rude cause were not answering her." Pt was reassured the other nurse was not talking to us at this time. Bed bath was provided for pt and linens were changed.
[2018-12-12] VITALS (781 sets, daily range): BP systolic 73–147; BP diastolic 56–92; PULSE 62–120; TEMP 97.3–98.9; O2SAT 30–100
--- NOTE | 2018-12-12 01:00 | NUR ---
Pt was noted to be on the floor in pt room following call from biomedical technician that HR was increased and another staff member had entered the room. Pt was sitting towards the bed in between the bed and the door in pts room. Chest tube was laying on the floor, which had been taped down prior this shift. Chest tube was still in place with active lung sounds present to the left room. Pt denies any different pain than complaints had been reported prior to incident. VS assessed at this time. Fall was witness by another staff member with reports of no head trauma. Report was received by assisting staff member and documented (please note). Pt was assisted to a standing position and back into bed. No new skin conditions including breaks in the skin, bruising or redness noted at this time. Pt reports feeling anxious stating "I thought you guys were going to leave without me." Pt was A&O x4. Has remained on CIWA protocol with treatment including Ativan when scores were appropriate to provide coverage. Once pt was back into bed alarm was applied. Pt reported pressing call light "but no one answered". No call light was initiated prior to fall.
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
--- NOTE | 2018-12-12 01:10 | NUR ---
Report provided to Lulu Jernigan RN.
--- NOTE | 2018-12-12 03:09 | NUR ---
PT AWAKE IN BED WITH HOB ELEVATED TO 45 DEGREE ANGLE. PT ASSISTED TO BEDSIDE COMMODE. PT'S GAIT VERY UNSTEADY. ASSISTED BACK INTO BED AND PT COMBING HAIR. PT DENIES ANXIETY OR PAIN/DISCOMFORT. PT HAS CALL LIGHT WITHIN REACH.
--- NOTE | 2018-12-12 04:52 | NUR ---
PT HAD VOMITED AND HEART RATE WENT UP TO 127. GAVE PT ZOFRAN AND IT DID RELIEVED HER NAUSEA AND VOMITING. PT DENIED ANY PAIN OR DISCOMFORT. PT'S IV INFLITRATED. STARTED NEW 20G IV IN RIGHT FOREARM, X3 ATTEMPTS, WITHOUT ANY DIFFICULTIES, AND PT TOLERATED WELL. REMOVED INFLITRATED IV AND CATHETER INTACT, APPLIED PRESSURE TILL BLEEDING STOPPED, AND APPLIED A PROTECTIVE DRSG TO SITE. PT HAS NOT SLEPT WELL. PT HAS BEEN UP MOST OF NIGHT. PT SCORED A 5 ON CIWA AND GAVE 1MG OF ATIVAN PO. PT IN BED WITH HOB ELEVATED TO 45 DEGREE ANGLE. PT WANTED TO ORDER BREAKFAST AT THIS TIME, ADVISED PT THAT THE KITCHEN DOES NOT OPEN UNTIL 0630. GAVE PT ORANGE JELLO FOR A SNACK AND ALSO ICE WATER. PT HAS NO FURTHER NEEDS AT THIS TIME, CALL LIGHT WITHIN REACH.
[2018-12-12 05:02] LABS: BASO % 0.2 % (0.0-2.0); GRAN # 9.1 (1.4-6.5); GRAN % 80.1 % (42.2-75.2); HEMOGLOBIN 11.5 g/dl (12.5-16.0); LYMPH # 1.7 (1.2-3.4); LYMPH % 15.1 % (20.0-51.0); MEAN CELL VOLUME 102 fl (80.0-100.0); MEAN CORPUSCULAR HEMOGLOBIN 35 pg (27.0-31.0); MEAN CORPUSCULAR HGB CONC 35 g/dl (33.0-37.0); MEAN PLATELET VOLUME 11.6 fl (7.4-10.4); MONO # 0.5 (0.1-0.6); PLATELET COUNT 73 K/mm3 (130-400); RED BLOOD COUNT 3.26 M/mm3 (4.10-5.30); REDCELL DISTRIBUTION WIDTH-CV 13.1 % (11.5-14.5)
[2018-12-12 05:03] LABS: HEMATOCRIT 33.3 % (37.0-47.0)
[2018-12-12 05:15] LABS: CALCIUM 8.6 mg/dL (8.4-10.2); CREATININE, serum 0.5 (0.52-1.25); POTASSIUM 3.4 mmol/L (3.4-5.0)
--- NOTE | 2018-12-12 06:09 | NUR ---
PT KEEPS TAKING OFF HER MONITORS, PLACED BACK ON PT. PT LOOKING AT MENU AT THIS TIME. PT ADVISED THAT KITCHEN OPENS AT 0630. PT DENIES PAIN OR DISCOMFORT AND NO ANXIETY AT THIS TIME. CALL LIGHT WITHIN REACH.
--- NOTE | 2018-12-12 07:10 | NUR ---
Bedside report received from KT Lawson.
--- NOTE | 2018-12-12 07:30 | NUR ---
Assessment complete, patient irritable, argumentative and aggitated at this time, bed alarm for patient safety. Patient picking all monitoring equipment at this time.
--- NOTE | 2018-12-12 07:50 | NUR ---
Patient continues to climb out of bed, Dr. eMdellin was called for IV ativan, new orders received.
--- NOTE | 2018-12-12 07:56 | NUR ---
Patient just finished breakfast, attempting to get out of bed, states "I am taking my tray to the kitchen." When reminded patient she is in the hospital she states "I am tired of being here." Bed alarm on for safety. Call light within reach.
--- NOTE | 2018-12-12 08:00 | NUR ---
Patient continues climbing out bed, verbally aggressive, KT Goldsmith (warehouse general laborer) assisting this RN and sitting at bedside. New orders for IV ativan received, patient refusing at this time.
--- NOTE | 2018-12-12 08:45 | NUR ---
Dr. Medellin here to speak with patient, patient finally allows this RN to give IV ativan and antibiotics, but continues to refuse po meds at this time.
--- NOTE | 2018-12-12 08:46 | NUR ---
Initial visit; Patient appeared somewhat agitated, nurse sitting with her. Waste Disposal Leakage Tester offered encouragement and God's blessings.
--- NOTE | 2018-12-12 09:19 | NUR ---
Dr. Longoria closes stopcock on heimlich valve.
--- NOTE | 2018-12-12 09:27 | NUR ---
AIVS here to place picc line.
--- NOTE | 2018-12-12 09:28 | NUR ---
AIVS tried to call her "Rohit" for consent, message left.
--- NOTE | 2018-12-12 09:30 | NUR ---
Patient climbing out of bed, states "I need to go to the bathroom" Patient assisted with heavy assist to BSC, both this RN and sitter stayed with patient, patient unable to void, when asked patient states "well you took so long getting here, it must have evaporated or something" Patient assisted back to bed, sitter remains at bedside.
--- NOTE | 2018-12-12 09:55 | NUR ---
Patient continues to try and climb out of bed, Dr. Longoria gives order for additional 2mg IV ativan now.
--- NOTE | 2018-12-12 10:25 | NUR ---
Patient continues to try and climb out bed but is slower at this time, sitter remains at bedside.
--- NOTE | 2018-12-12 10:37 | NUR ---
Precedex gtt started, Dr. Longoria aware.
--- NOTE | 2018-12-12 10:44 | NUR ---
Patient refuses to allow this RN to place a second INT. States "you are holding me here against my will, this is inprisonment."
--- NOTE | 2018-12-12 10:47 | NUR ---
Patient pulled off sat probe and threw it across room. Sitter remains at bedside.
--- NOTE | 2018-12-12 11:01 | NUR ---
Patient continues to remove monitoring equipment off. Patient kicking at sitter.
--- NOTE | 2018-12-12 11:01 | NUR ---
Message left for "Rohit" with no answer.
--- NOTE | 2018-12-12 11:05 | NUR ---
Patient continues to climb out of bed, states "someone get me my cigarettes and a vodka."
--- NOTE | 2018-12-12 11:12 | NUR ---
Patient yelling out "Micheal" and continues to climb out of bed.
--- NOTE | 2018-12-12 11:28 | NUR ---
Patient finally resting quietly in bed, sitter remains at bedside.
--- NOTE | 2018-12-12 12:20 | NUR ---
Rohit (patient ) called back, telephone consent for picc line, and intubation if becomes medically necessary obtained from him, second nurse verified by KT Zhang. Rohit states patient "drinks until she blacks out and has been drinking more lately, about 2 half gallons of vodka." Rohit given pin number if he wishes to call and check on her, states "I was going to come up but if she is getting rowdy, I'm not."
--- NOTE | 2018-12-12 15:15 | NUR ---
BP 86/71, second 500ml LR bolus started, per Dr. Longoria order.
--- NOTE | 2018-12-12 15:17 | NUR ---
AIVS here to place picc line.
--- NOTE | 2018-12-12 16:00 | NUR ---
Patient awakens and asks "how did I get here" then falls immediately back to sleep.
--- NOTE | 2018-12-12 16:05 | NUR ---
Dr. Oconnell here, opens stopcock on heimlich valve, states to leave stopcock open.
--- NOTE | 2018-12-12 18:16 | NUR ---
Patient awakens easily, then falls back to sleep. Bed alarm remains on for patient safety. Call light within reach.
--- NOTE | 2018-12-12 19:05 | NUR ---
Bedside report received from Angie. Chest tube assessed as well as IV pumps at this time. Pt resting in bed, easily aroused to voise although confusion noted with questions. Pt was asked if in pain and pt responded "just from them last night."
--- NOTE | 2018-12-12 19:05 | NUR ---
Bedside report given to KT Elizabeth.
--- NOTE | 2018-12-12 21:57 | NUR ---
Pt stated to nurse feeling hungry and asked "its to late to order from down stairs isnt it?" Nurse replied yes and offered to get pt a snack. All snacks were refused. After a few moments a sandwich box was agreed upon and provided to pt. Pt ate 100% of the meal and when asked how the sandwich was, pt stated "good". Pt is controlling the bed independently with the television on. No increased restless or attempts at getting out of bed noted at this time. Bed alarm is on.
--- NOTE | 2018-12-12 22:30 | NUR ---
While pt was sitting on the bedside commode pt was noted to lean slightly to the right and vomitted on the floor. There was no warning provided by the pt prior to vomitting episode. Following, pt asked if there was nausea or any warning and pt denied warning although reported sudden nausea was improved following emesis.
[2018-12-13] VITALS (362 sets, daily range): BP systolic 107–143; BP diastolic 67–87; PULSE 75–96; TEMP 97.8–99.2; O2SAT 77–100
[2018-12-13 05:24] LABS: BASO % 0.2 % (0.0-2.0); EOS # 0.1 (0.0-0.7); EOS % 1.4 % (0-4.0); GRAN % 75.8 % (42.2-75.2); HEMOGLOBIN 10.8 g/dl (12.5-16.0); LYMPH # 1.3 (1.2-3.4); LYMPH % 19.2 % (20.0-51.0); MEAN CELL VOLUME 105 fl (80.0-100.0); MEAN CORPUSCULAR HEMOGLOBIN 35 pg (27.0-31.0); MEAN CORPUSCULAR HGB CONC 34 g/dl (33.0-37.0); MEAN PLATELET VOLUME 11.8 fl (7.4-10.4); MONO # 0.2 (0.1-0.6); MONO % 3.2 % (1.7-9.3); PLATELET COUNT 67 K/mm3 (130-400); RED BLOOD COUNT 3.05 M/mm3 (4.10-5.30); REDCELL DISTRIBUTION WIDTH-CV 13.2 % (11.5-14.5)
[2018-12-13 05:33] LABS: HEMATOCRIT 31.9 % (37.0-47.0)
[2018-12-13 05:35] LABS: CREATININE, serum 0.5 (0.52-1.25); MAGNESIUM 2.1 mg/dL (1.6-2.3)
--- NOTE | 2018-12-13 07:15 | NUR ---
Bedside report provided to Corazon, student and RN Leatha. Pt sitting in bed in high fowlers position eating breakfast.
--- NOTE | 2018-12-13 07:20 | NUR ---
REPORT RECEIVED FROM KT COLORADO
--- NOTE | 2018-12-13 14:50 | NUR ---
ZAIDA RN STUDENT CALLS REPORT TO KT MAN AT THIS TIME. PATIENT TAKEN UP TO ROOM 345
--- NOTE | 2018-12-13 22:05 | NUR ---
Patient resting in bed. PICC line to ALO infusing. Keith catheter draining ruddy urine. Patient continues on alcohol detox protocol. No medication needed for this. Noted to have coarse lung sounds throughout. Dressing to left upper chest clean, dry, and intact. Denies pain at this time.
[2018-12-14] VITALS (7 sets, daily range): BP systolic 135–169; BP diastolic 83–94; PULSE 79–87; TEMP 98.3–98.9
--- NOTE | 2018-12-14 00:59 | NUR ---
Patient resting in bed with eyes closed. IV fluids continue. Appears to be resting comfortably. Scored 1 on alcohol detox protocol scale. Will continue to monitor.
--- NOTE | 2018-12-14 06:45 | NUR ---
Patient slept well throughout the night. Ranged from 1-2 on the detox protocol. No PRN medications administered. Requesting her moreau be discontinued today.
[2018-12-14 08:23] LABS: BASO % 0.3 % (0.0-2.0); EOS # 0.2 (0.0-0.7); EOS % 3.2 % (0-4.0); GRAN # 5.3 (1.4-6.5); GRAN % 71.3 % (42.2-75.2); HEMOGLOBIN 11.3 g/dl (12.5-16.0); LYMPH # 1.5 (1.2-3.4); LYMPH % 19.7 % (20.0-51.0); MEAN CELL VOLUME 104 fl (80.0-100.0); MEAN CORPUSCULAR HEMOGLOBIN 35 pg (27.0-31.0); MEAN CORPUSCULAR HGB CONC 34 g/dl (33.0-37.0); MEAN PLATELET VOLUME 11.8 fl (7.4-10.4); MONO # 0.4 (0.1-0.6); MONO % 5.1 % (1.7-9.3); PLATELET COUNT 70 K/mm3 (130-400); RED BLOOD COUNT 3.25 M/mm3 (4.10-5.30); REDCELL DISTRIBUTION WIDTH-CV 13.2 % (11.5-14.5)
[2018-12-14 08:24] LABS: HEMATOCRIT 33.7 % (37.0-47.0)
[2018-12-14 08:30] LABS: INR 1.1 (0.8-3.0); PROTHROMBIN TIME 12.9 SECONDS (9.7-12.8)
[2018-12-14 08:39] LABS: ALBUMIN 3.4 gm/dL (3.5-5.0); BILIRUBIN,TOTAL 0.8 mg/dL (0.0-1.0); CALCIUM 9.1 mg/dL (8.4-10.2); CREATININE, serum 0.47 (0.52-1.25); MAGNESIUM 1.5 mg/dL (1.6-2.3); POTASSIUM 4.2 mmol/L (3.4-5.0); TOTAL PROTEIN 6.5 gm/dL (6.4-8.2)
[2018-12-14] MEDS ORDERED: THIAMINE 1100 MG/TAB PO (09:04)
[2018-12-14] MEDS ORDERED: FOLIC ACID 11 MG/TA1 PO (09:04)
[2018-12-14] MEDS ORDERED: LEVAQUIN 750MG750 M1 PO (09:07)
--- NOTE | 2018-12-14 09:10 | NUR ---
Patient alert and oriented, answers questions appropraitely. See assessment. Lungs decreased in bases, clear in upper lobes. Previous chest tube site with 4x4 clean, dry and intact. Keith catheter patent and draining clear yellow urine. No c/o at this time.
--- NOTE | 2018-12-14 11:27 | NUR ---
PT Raghavendra updated SW team that patient would need a front-wheeled walker to go home. SW student met with patient to discuss options and complete patient-choice form. Patient declined obtaining a walker. SW to update PT and nursing of patient's refusal to order walker.
--- NOTE | 2018-12-14 11:55 | NUR ---
First visit from the director targeted marketing. No needs right now.
--- NOTE | 2018-12-14 16:14 | NUR ---
Discharge instructions reviewed with patient, verbalized understanding. Discharged via wheelchair to auto/home with spouse at 1600.
== END 2018-12-14 16:00 | disposition home or self-care (01) | DRG 200 ==
LOC: COL.ER 15:31 → ICU 18:27 → SURG 12-13 15:13
PROVIDERS: Emergency Medicine; Internal Medicine; Nurse Practitioner; Nurse Practitioner Family; ADMIT Internal Medicine
PROC: 0W9B30Z Drainage of Left Pleural Cavity with Drainage Device, Percutaneous Approach (ICD-10-PCS; principal; 2018-12-09)
DX: J93.11 Primary spontaneous pneumothorax (principal); J44.1 Chronic obstructive pulmonary disease with (acute) exacerbation; E87.2 Acidosis; F10.231 Alcohol dependence with withdrawal delirium; E87.1 Hypo-osmolality and hyponatremia; J45.909 Unspecified asthma, uncomplicated; F17.210 Nicotine dependence, cigarettes, uncomplicated; E83.42 Hypomagnesemia; D69.6 Thrombocytopenia, unspecified; E86.0 Dehydration; Y90.8 Blood alcohol level of 240 mg/100 ml or more; D64.9 Anemia, unspecified
CPT/HCPCS: 99223-AI; 99233-AI; 99239; A4216; C1751; J0692; J2060; J2270; J2405; J2930; J3475; J3480; J7030; J7120; J7512; Q9967

== ENCOUNTER 2019-02-24 20:46 | Emergency (ER) | payer BC ==
[~2019-02-24] VITALS: Ht 175.3 cm; Wt 60.0 kg
[~2019-02-24 20:46] MED LIST changes: +LEVAQUIN 750MG750 M1 PO
[2019-02-24 20:49] VITALS: TEMP 97.4
[2019-02-24 21:30] LABS: BASO # 0.1 (0.0-0.2); BASO % 1.1 % (0.0-2.0); EOS # 0.3 (0.0-0.7); EOS % 4.1 % (0-4.0); GRAN # 2.5 (1.4-6.5); GRAN % 38.9 % (42.2-75.2); HEMATOCRIT 39.6 % (37.0-47.0); HEMOGLOBIN 13.5 g/dl (12.5-16.0); LYMPH # 3.1 (1.2-3.4); MEAN CELL VOLUME 98 fl (80.0-100.0); MEAN CORPUSCULAR HEMOGLOBIN 34 pg (27.0-31.0); MEAN CORPUSCULAR HGB CONC 34 g/dl (33.0-37.0); MONO # 0.4 (0.1-0.6); MONO % 6.7 % (1.7-9.3); PLATELET COUNT 195 K/mm3 (130-400); RED BLOOD COUNT 4.03 M/mm3 (4.10-5.30); REDCELL DISTRIBUTION WIDTH-CV 13.4 % (11.5-14.5)
[2019-02-24 21:42] LABS: ALANINE AMINOTRANSFERASE 28 U/L (9-52); ALBUMIN 4.7 gm/dL (3.5-5.0); ALCOHOL(ethanol),MEDICAL 193 mg/dL; ALKALINE PHOSPHATASE 90 U/L (50-136); ANION GAP 14 mmol/L (7-16); AST,SGOT 66 U/L (15-37); BILIRUBIN,TOTAL 0.5 mg/dL (0.0-1.0); BLOOD UREA NITROGEN 12 mg/dL (7-17); CALCIUM 10.2 mg/dL (8.4-10.2); CARBON DIOXIDE 25 mmol/L (22-30); CHLORIDE 105 mmol/L (98-107); CREATININE, serum 0.59 (0.52-1.25); GLUCOSE 87 mg/dL (74-106); INR 0.9 (0.8-3.0); POTASSIUM 4.2 mmol/L (3.4-5.0); PROTHROMBIN TIME 10.6 SECONDS (9.7-12.8); SODIUM 144 mmol/L (137-145)
[2019-02-24 21:51] LABS: D-DIMER < 200.00 ng/mLDDu (200-230)
[2019-02-24 21:56] LABS: TROPONIN-I < 0.012 ng/mL (0.000-0.035)
[2019-02-24] MEDS ORDERED: BACTRIM DS 8001 TAB PO (22:34)
[2019-02-24] MEDS ORDERED: PREDNISONE20 MG PO (22:34)
[2019-02-24 22:44] VITALS: BP 112/73; PULSE 98
== END 2019-02-24 22:44 | disposition home or self-care (01) ==
LOC: COL.ER 20:46
PROVIDERS: Emergency Medicine
DX: J44.1 Chronic obstructive pulmonary disease with (acute) exacerbation (principal); J93.9 Pneumothorax, unspecified; F17.210 Nicotine dependence, cigarettes, uncomplicated; F10.20 Alcohol dependence, uncomplicated; Z90.710 Acquired absence of both cervix and uterus
CPT/HCPCS: J2930; J7030

== ENCOUNTER 2019-07-17 19:40 | Inpatient (IN) | payer BC ==
[~2019-07-17] VITALS: Ht 175.3 cm; Wt 65.8 kg
[2019-07-17 20:42] LABS: HEMOGLOBIN 12.9 g/dl (12.5-16.0); MEAN CELL VOLUME 99 fl (80.0-100.0); MEAN CORPUSCULAR HEMOGLOBIN 34 pg (27.0-31.0); MEAN CORPUSCULAR HGB CONC 34 g/dl (33.0-37.0); MEAN PLATELET VOLUME 10.8 fl (7.4-10.4); PLATELET COUNT 171 K/mm3 (130-400); RED BLOOD COUNT 3.84 M/mm3 (4.10-5.30); REDCELL DISTRIBUTION WIDTH-CV 18.1 % (11.5-14.5)
[2019-07-17 20:58] LABS: ALBUMIN 4.2 gm/dL (3.5-5.0); BILIRUBIN,TOTAL 0.4 mg/dL (0.0-1.0); CALCIUM 9.4 mg/dL (8.4-10.2); CREATININE, serum 0.65 (0.52-1.25); POTASSIUM 4.1 mmol/L (3.4-5.0); TOTAL PROTEIN 7.7 gm/dL (6.4-8.2)
[2019-07-17 21:07] LABS: TROPONIN-I < 0.012 ng/mL (0.000-0.035)
[2019-07-17 21:38] LABS: BAND 3 % (0-10); EOSINOPHIL 2 % (0-4); LYMPHOCYTE 54 % (20.0-51.0); NEUTROPHILS 30 % (42.0-75.2); PLATELET ESTIMATE NORMAL (NORMAL)
[2019-07-17 21:39] LABS: ANISOCYTOSIS 1+
[2019-07-17] MEDS ORDERED: LEVAQUIN 5500 MG/TA1 PO (23:10)
[2019-07-17] MEDS ORDERED: PREDNISONE20 MG PO (23:10)
[2019-07-18] VITALS (286 sets, daily range): BP systolic 101–141; BP diastolic 62–94; PULSE 100–123; TEMP 98.4–99; O2SAT 89–100
[2019-07-18 01:28] LABS: COLLECTION METHOD CLEAN CATCH
[2019-07-18 01:37] LABS: MUCOUS Present /lpf; PH 5 (5-8); URINE APPEARANCE Cloudy; URINE BACTERIA Rare /hpf; URINE BILIRUBIN Negative (NEGATIVE); URINE BLOOD Negative (NEGATIVE); URINE COLOR Yellow; URINE GLUCOSE Negative (NEGATIVE); URINE KETONE Negative (NEGATIVE); URINE LEUKOCYTE ESTERASE Negative (NEGATIVE); URINE NITRATE Negative (NEGATIVE); URINE PROTEIN(semi-quant) 1+ (NEGATIVE); URINE RBC 0-2 /hpf; URINE UROBILINOGEN Negative (NEGATIVE)
[2019-07-18 02:33] LABS: PARTIAL THROMBOPLASTIN TIME 32.1 SECONDS (26.0-37.0)
--- NOTE | 2019-07-18 03:50 | NUR ---
RECEIVED REPORT FROM KT DUMONT IN ER. AWAITING ARRIVAL OF PT TO ICU 8.
--- NOTE | 2019-07-18 04:00 | NUR ---
PT ARRIVED TO ICU8. PT ABLE TO TRANSFER SELF TO ICU BED. SLOW STUMBLY GAIT NOTED. SMALL TREMORS NOTED UPON ADMISSION. ER NURSE STATES THAT SHE HAS BEEN DOING THAT SINCE ADMISSION TO ER AND HAS NOT INCREASED. PT PLACED ON BEDSIDE CONTINUOUS MONITOR. CALL LIGHT EDUCATION GIVEN, VERBALIZED UNDERSTANDING. AAO X4 UPON ADMISSION. MOOD PLEASANT. COOPERATIVE WITH CARE. EDUCATED PT ON LOVENOX SHOT, VERBALIZED UNDERSTANDING. PT ABLE TO TALK ABOUT PAST MEDICAL HX AND MEDICATIONS TAKEN AT HOME.
[2019-07-18 04:07] LABS: MAGNESIUM 1.1 mg/dL (1.6-2.3); PHOSPHOROUS 3.6 mg/dL (2.5-4.5)
--- NOTE | 2019-07-18 04:48 | NUR ---
DISCUSSED ALLERGIES WITH NP. OPAL OK TO GIVE ABX, SEE MAR.
--- NOTE | 2019-07-18 05:02 | NUR ---
TERRELL JOSEPH AT BEDSIDE FOR ASSESSMENT AND DISCUSSING POC WITH PT. PT COOPERATIVE AND VERY INFORMATIVE. TERRELL JOSEPH NOTIFIED OF POSITIVE RHINOVIRUS SWAB AND WBC 1.7. PT PLACED ON DROPLET ISOLATION AT THIS TIME. PT VERBALIZES UNDERSSTANDING FOR PPE BY STAFF.
[2019-07-18 05:11] LABS: MEAN CORPUSCULAR HEMOGLOBIN 34 pg (27.0-31.0); MEAN CORPUSCULAR HGB CONC 31 g/dl (33.0-37.0); MEAN PLATELET VOLUME 11.4 fl (7.4-10.4); PLATELET COUNT 155 K/mm3 (130-400); RED BLOOD COUNT 3.21 M/mm3 (4.10-5.30); REDCELL DISTRIBUTION WIDTH-CV 18.7 % (11.5-14.5)
[2019-07-18 05:14] LABS: MEAN CELL VOLUME 109 fl (80.0-100.0)
[2019-07-18 05:19] LABS: ALBUMIN 3.7 gm/dL (3.5-5.0); BILIRUBIN,TOTAL 0.4 mg/dL (0.0-1.0); CALCIUM 7.9 mg/dL (8.4-10.2); CREATININE, serum 0.55 (0.52-1.25); POTASSIUM 4.1 mmol/L (3.4-5.0); TOTAL PROTEIN 6.7 gm/dL (6.4-8.2)
[2019-07-18] MEDS ORDERED: ATARAX 25MG25 MG/TAB PO (05:27)
[2019-07-18 05:43] LABS: TRICYCLIC ANTIDEPRESS URINE NEGATIVE
--- NOTE | 2019-07-18 06:05 | NUR ---
SPUTUM COLLECTION EDUCATION GIVEN TO PT AND CUP PLACED WITHIN REACH. PT VERBALIZED UNDERSTANDING. PT STATES SHE HAS BEEN COUGHING THE PAST COUPLE OF DAYS BUT HAS NOT COUGHED ANY MUCUS UP. WILL MONITOR FOR COLLECTION.
[2019-07-18 06:52] LABS: BAND 2 % (0-10); LYMPHOCYTE 15 % (20.0-51.0); NEUTROPHILS 83 % (42.0-75.2); PLATELET ESTIMATE NORMAL (NORMAL)
--- NOTE | 2019-07-18 07:00 | NUR ---
BEDSIDE REPORT RECEIVED FROM KT MITCHELL. PATIENT LYING IN BED WITH NO COMPLAINTS. SHE DOES APPEAR TO BE AT EASE AND ONLY SHOWING MILD TREMORS. WILL CONTINUE TO MONITOR. CARE ASSUMED AT THIS TIME.
[2019-07-18 07:09] LABS: SALICYLATE < 1.0 mg/dL; TROPONIN-I < 0.012 ng/mL (0.000-0.035)
--- NOTE | 2019-07-18 10:27 | NUR ---
NETWORK OPERATIONS SPECIALIST student met with the patient to discuss a discharge plan. The patient lives with her , Rohit in [place] but has a [place] address. The patient reports independence with ADLs and uses oxygen at home, [facility] provided oxygen supplies. The patient's PCP is Dr. Jimenes and patient receives medications from [facility]. Patient reports she can pick them up but has difficulties paying for them, reports her insurance has a high deductible. Social serivces my need to provide medication voucher. The patient does not have advanced directives in the EMR. The patient plans to return home upon discharge with Rohit providing transportation. account services coordinator will continue to follow to ensure a safe discharge.
--- NOTE | 2019-07-18 17:15 | NUR ---
Patient arrived to room 309 at this time from ICU, she is alert/oriented, vital signs stable, denies pain or discomfort, placed in Droplet p/c, on CIWA protocol, denies needs at this time, will continue to monitor
--- NOTE | 2019-07-18 19:08 | NUR ---
PATIENT REFUSED SVN TX , BS ARE CLEAR AND NO SIGN OF DISTRESS. PATIENT WILL CALL MAJOR ACCOUNT MANAGER IF NEEDED.
--- NOTE | 2019-07-18 20:31 | NUR ---
Shift assessment complete. Pt scores 6 on detox. Given 1mg Ativan IV. Denies pain. Occas cough. NS infusing at 125mL/hr in R wrist. IV site wrapped with Virgilio wrap.
[2019-07-19] VITALS (10 sets, daily range): BP systolic 90–154; BP diastolic 58–92; PULSE 96–106; TEMP 98–99.6
--- NOTE | 2019-07-19 00:42 | NUR ---
PATIENT HAS BEEN VERY COOPERATIVE THIS SHIFT. SCORED A 6 AND GIVEN 1MG IV ATIVAN. AT 2200 SHE SCORED A 3 AND NO ATIVAN GIVEN. AT MIDNIGHT SHE WAS A 7 AND RECEIVED 1MG ATIVAN. SHE ALSO C/O FEELING ITCHY. HAS NO PROBLEM TAKING PO MEDS.
--- NOTE | 2019-07-19 04:46 | NUR ---
PT SCORED 5 AND RECEIVED 1MG ATIVAN IV. ASSIST TO THE BATHROOM. VOIDS LARGE AMT. UNSTEADY GAIT. DENIES PAIN. BACK TO BED. CALL LIGHT IN REACH. BED ALARM ON.
[2019-07-19 06:47] LABS: BASO % 0.4 % (0.0-2.0); EOS % 0.2 % (0-4.0); GRAN # 3.5 (1.4-6.5); GRAN % 69.6 % (42.2-75.2); HEMOGLOBIN 10.9 g/dl (12.5-16.0); LYMPH # 1.2 (1.2-3.4); LYMPH % 23.7 % (20.0-51.0); MEAN CORPUSCULAR HEMOGLOBIN 34 pg (27.0-31.0); MEAN CORPUSCULAR HGB CONC 33 g/dl (33.0-37.0); MEAN PLATELET VOLUME 11.5 fl (7.4-10.4); MONO # 0.3 (0.1-0.6); MONO % 5.9 % (1.7-9.3); PLATELET COUNT 168 K/mm3 (130-400); RED BLOOD COUNT 3.22 M/mm3 (4.10-5.30); REDCELL DISTRIBUTION WIDTH-CV 17.9 % (11.5-14.5)
[2019-07-19 06:55] LABS: HEMATOCRIT 32.7 % (37.0-47.0)
[2019-07-19 06:56] LABS: MEAN CELL VOLUME 102 fl (80.0-100.0)
[2019-07-19 07:03] LABS: ALBUMIN 3.7 gm/dL (3.5-5.0); BILIRUBIN,TOTAL 0.8 mg/dL (0.0-1.0); CALCIUM 7.9 mg/dL (8.4-10.2); CREATININE, serum 0.5 (0.52-1.25); MAGNESIUM 1.7 mg/dL (1.6-2.3); POTASSIUM 3.5 mmol/L (3.4-5.0); TOTAL PROTEIN 6.8 gm/dL (6.4-8.2)
--- NOTE | 2019-07-19 07:27 | NUR ---
End of shift report given to oncoming RN.
--- NOTE | 2019-07-19 08:54 | NUR ---
Assessment completed, alert/oriented, reports pain in right shoulder is improved but still present 3-11/30, she is on CIWA protocol and we are treating accordingly, heart regular but slightly tachycardic/ blood pressure slightly elevated, she has visible tremors, appetite is improving, lungs CTA/ no resp.difficulty noted, on Droplet P/c for Coronavirus, she is sititng up at edge of the bed eating brewakfast, bed alarm is on, she denies other needs at this time
[2019-07-20] VITALS (9 sets, daily range): BP systolic 116–159; BP diastolic 72–97; PULSE 95–110; TEMP 97.4–99.6
--- NOTE | 2019-07-20 07:51 | NUR ---
Pt up to bathroom with SBA. Pt alert and oriented and rates pain 1/10. Pt scalp no redness or edema noted where pt lacerated during fall at home. Pt left side has a bruise noted and pt states right shoulder tender with cough. Pt remains on droplet for virus. Pt IV patent no redness or infiltration noted. Pt has call light in reach and fall precautions in place.
[2019-07-20 08:25] LABS: BASO % 0.2 % (0.0-2.0); EOS % 0.4 % (0-4.0); GRAN # 2.8 (1.4-6.5); HEMOGLOBIN 11.5 g/dl (12.5-16.0); LYMPH # 1.7 (1.2-3.4); LYMPH % 35.2 % (20.0-51.0); MEAN CELL VOLUME 101 fl (80.0-100.0); MEAN CORPUSCULAR HEMOGLOBIN 34 pg (27.0-31.0); MEAN CORPUSCULAR HGB CONC 33 g/dl (33.0-37.0); MONO # 0.3 (0.1-0.6); PLATELET COUNT 114 K/mm3 (130-400); RED BLOOD COUNT 3.42 M/mm3 (4.10-5.30)
[2019-07-20 08:29] LABS: HEMATOCRIT 34.4 % (37.0-47.0)
[2019-07-20 08:46] LABS: ALBUMIN 3.6 gm/dL (3.5-5.0); BILIRUBIN,TOTAL 0.9 mg/dL (0.0-1.0); CALCIUM 8.4 mg/dL (8.4-10.2); CREATININE, serum 0.49 (0.52-1.25); MAGNESIUM 1.5 mg/dL (1.6-2.3); POTASSIUM 3.3 mmol/L (3.4-5.0); TOTAL PROTEIN 6.8 gm/dL (6.4-8.2)
--- NOTE | 2019-07-20 15:24 | NUR ---
Pt alert and oriented and scoring 3 on alcohol detox scale for BP, Pulse, and tremors. Pt denies anxiety, SOB, or pain. Pt IV patent no redness or infiltration noted. Pt eating and drinking. No N/V/D. Pt remains in droplet precautions. Pt hopeful to go home today. Pt has call light in reach.
--- NOTE | 2019-07-20 18:34 | NUR ---
Pt discharge orders received. Pt given instructions and education on medications and follow ups appt with PCP. Pt IV discontinued tip intact no redness or bleeding. Pt has all belongings. Pt escorted out via wheelchair and mask without issue.
== END 2019-07-20 17:50 | disposition home health service (06) | DRG 872 ==
LOC: COL.ER 19:40 → ICU 07-18 03:23 → MEDICAL 07-18 17:35
PROVIDERS: Emergency Medicine; Nurse Practitioner Family; Physician Assistant; ADMIT Student in an Organized Health Care Education/Training Program
DX: A41.9 Sepsis, unspecified organism (principal); E87.2 Acidosis; J44.1 Chronic obstructive pulmonary disease with (acute) exacerbation; D72.819 Decreased white blood cell count, unspecified; R74.0 Nonspecific elevation of levels of transaminase and lactic acid dehydrogenase [LDH]; E83.42 Hypomagnesemia; R73.9 Hyperglycemia, unspecified; F10.129 Alcohol abuse with intoxication, unspecified; F17.210 Nicotine dependence, cigarettes, uncomplicated; B97.29 Other coronavirus as the cause of diseases classified elsewhere; Z90.710 Acquired absence of both cervix and uterus; Z87.01 Personal history of pneumonia (recurrent); Z98.51 Tubal ligation status; Z88.0 Allergy status to penicillin; Z88.1 Allergy status to other antibiotic agents; Z88.8 Allergy status to other drugs, medicaments and biological substances
CPT/HCPCS: 99222-AI; A4216; C9113; J0692; J1650; J2060; J2405; J3411; J3475; J7030; J7512; Q9967

== ENCOUNTER 2019-12-16 00:35 | Emergency (ER) | payer SELFPAY ==
[~2019-12-16] VITALS: Ht 175.3 cm; Wt 55.9 kg
[2019-12-16 00:47] VITALS: BP 123/87; PULSE 94; TEMP 97.7
[2019-12-16] MEDS ORDERED: PROVENTIL0.09 MG/A1 IH (01:54)
[2019-12-16] MEDS ORDERED: PREDNISONE20 MG PO (01:54)
== END 2019-12-16 02:35 | disposition home or self-care (01) ==
LOC: COL.ER 00:35
DX: J45.901 Unspecified asthma with (acute) exacerbation (principal); J44.9 Chronic obstructive pulmonary disease, unspecified; F17.210 Nicotine dependence, cigarettes, uncomplicated; Z90.710 Acquired absence of both cervix and uterus
CPT/HCPCS: J7512

== ENCOUNTER 2019-12-22 11:18 | Inpatient (IN) | payer SELFPAY ==
[2019-12-22] VITALS (189 sets, daily range): BP systolic 117–142; BP diastolic 74–90; PULSE 100–122; TEMP 98.2–99.1; O2SAT 85–98
[~2019-12-22] VITALS: Ht 175.3 cm; Wt 62.5 kg
[2019-12-22 12:14] LABS: GRAN # 3.4 (1.4-6.5); GRAN % 49.7 % (42.2-75.2); HEMOGLOBIN 12.4 g/dl (12.5-16.0); LYMPH # 3.1 (1.2-3.4); LYMPH % 45.1 % (20.0-51.0); MEAN CELL VOLUME 95 fl (80.0-100.0); MEAN CORPUSCULAR HEMOGLOBIN 33 pg (27.0-31.0); MEAN CORPUSCULAR HGB CONC 35 g/dl (33.0-37.0); MONO # 0.3 (0.1-0.6); MONO % 4.6 % (1.7-9.3); PLATELET COUNT 146 K/mm3 (130-400); RED BLOOD COUNT 3.77 M/mm3 (4.10-5.30); REDCELL DISTRIBUTION WIDTH-CV 17.1 % (11.5-14.5)
[2019-12-22 12:16] LABS: HEMATOCRIT 35.9 % (37.0-47.0)
[2019-12-22 12:21] LABS: PROTHROMBIN TIME 11.1 SECONDS (9.7-12.8)
[2019-12-22 12:29] LABS: ALANINE AMINOTRANSFERASE 62 U/L (4-34); ALBUMIN 4.7 gm/dL (3.5-5.0); ALKALINE PHOSPHATASE 96 U/L (50-136); ANION GAP 12 mmol/L (7-16); AST,SGOT 104 U/L (15-37); BILIRUBIN,TOTAL 0.6 mg/dL (0.0-1.0); BLOOD UREA NITROGEN 17 mg/dL (7-17); CALCIUM 9.5 mg/dL (8.4-10.2); CARBON DIOXIDE 30 mmol/L (22-30); CHLORIDE 98 mmol/L (98-107); CREATININE, serum 0.71 (0.52-1.25); GLUCOSE 80 mg/dL (74-106); POTASSIUM 3.9 mmol/L (3.4-5.0); SODIUM 140 mmol/L (137-145); TOTAL PROTEIN 8.2 gm/dL (6.4-8.2)
[2019-12-22 13:08] LABS: TROPONIN-I < 0.012 ng/mL (0.000-0.035)
--- NOTE | 2019-12-22 13:42 | NUR ---
Report recieved from KT Holliday
--- NOTE | 2019-12-22 14:00 | NUR ---
Pt arrived to ICU 3 via ER cart with proper PPE precautions. Pt ambulated without difficulty from cart to bed. Monitors switched over to ICU. Pt AAOx4 appearing under the influence of alcohol - pt denies drinking today, last drink was last night per pt - reports drinking "one glass of vodka per day" after initally denying current alcohol use. ETOH level noted later. MD Jose C notified of CIWA score - additional orders inputed and carried out Pt oriented to room, educated: time required for staff to don PPE prior to entering room, clustering care, fall risk with ETOH and monitoring cables, call light always in reach and its purpose. Fall risk reinforced - pt able to recall education without difficulty. Bed alarm line controller light in reach
[2019-12-22 15:04] LABS: MAGNESIUM 1.7 mg/dL (1.6-2.3)
--- NOTE | 2019-12-22 16:25 | NUR ---
MD Brayan in room for Central Line Placement
--- NOTE | 2019-12-22 19:10 | NUR ---
RECEIVED REPORT FROM KT ARORA. PT RESTING IN BED EASILY ON AIRVO. VSS. CALL LIGHT WITHIN REACH.
--- NOTE | 2019-12-22 19:23 | NUR ---
Attempted to contact Rohit to update - no answer - unable to leave voice message
--- NOTE | 2019-12-22 23:43 | NUR ---
NOTIFIED LAVELL WILEY OF COVID TEST NEGATIVE. NEW ORDERS RECEIVED. SPRING TIER NOTIFIED.
[2019-12-23] VITALS (672 sets, daily range): BP systolic 126–160; BP diastolic 85–99; PULSE 77–105; TEMP 98–98.6; O2SAT 73–100
[2019-12-23 06:36] LABS: GRAN # 5.9 (1.4-6.5); GRAN % 87.5 % (42.2-75.2); HEMATOCRIT 33.1 % (37.0-47.0); HEMOGLOBIN 11.2 g/dl (12.5-16.0); LYMPH # 0.6 (1.2-3.4); LYMPH % 8.8 % (20.0-51.0); MEAN CELL VOLUME 97 fl (80.0-100.0); MEAN CORPUSCULAR HEMOGLOBIN 33 pg (27.0-31.0); MEAN CORPUSCULAR HGB CONC 34 g/dl (33.0-37.0); MEAN PLATELET VOLUME 11.5 fl (7.4-10.4); MONO # 0.2 (0.1-0.6); MONO % 2.8 % (1.7-9.3); PLATELET COUNT 105 K/mm3 (130-400); RED BLOOD COUNT 3.43 M/mm3 (4.10-5.30)
[2019-12-23 07:13] LABS: ALBUMIN 3.9 gm/dL (3.5-5.0); BILIRUBIN,TOTAL 0.6 mg/dL (0.0-1.0); CALCIUM 8.1 mg/dL (8.4-10.2); CREATININE, serum 0.59 (0.52-1.25); POTASSIUM 3.9 mmol/L (3.4-5.0); TOTAL PROTEIN 6.9 gm/dL (6.4-8.2)
--- NOTE | 2019-12-23 13:18 | NUR ---
Plan to return home with her Rohit. . Patient indicated that she has tranportation and would be interest in homehealth care. PCP was Dr. Jimenes and has not been reassigned Client reports that she has the financial services professional packet. Patient reports that she uses 92 at home at night on 2 liters. . Denies any care concerns, is listed at [facility]. Client denies any care concerns. Nothing follows.
--- NOTE | 2019-12-23 17:17 | NUR ---
Report given to KT Lynn. Pt transferred to [place] [id number] via wheelchair. Pt transferred to [facility] bed with x1 assist. Steady gait. Pt connected to [facility]. Pt now on 4L/NC, Spo2 at 96%. Call light in reach.
--- NOTE | 2019-12-23 17:19 | NUR ---
Patient arrives to ICU 17 and is attached to monitor. Prior report recieved. Care assumed.
--- NOTE | 2019-12-23 20:00 | NUR ---
Pt assisted to toilet, gait slow and steady. She voids and assisted back to bed. Asking for Lorazepam, reports feeling "shaky". Detox score of 4. Has RT IJ with IVF infusing without problem, drsg has drainage on it. Has SL to right and left AC, both flushed well. Abd soft. Is wearing oxygen at 2L/NC at this time, this is reported to be her home normal. Lungs with insp/exp wheezes, loose harsh cough noted. Bed alarm on.
--- NOTE | 2019-12-23 20:10 | NUR ---
Lorazepam 0.5mg IV given at this time for detox score 4.
[2019-12-24] VITALS (651 sets, daily range): BP systolic 123–167; BP diastolic 70–108; PULSE 78–103; TEMP 97.7–98.6; O2SAT 85–100
--- NOTE | 2019-12-24 00:16 | NUR ---
Detox protocol score 3, no need for IV Ativan at this time. Given scheduled oral Valium at this time.
--- NOTE | 2019-12-24 02:15 | NUR ---
Assisted to the toilet, gait steady, voids and back to bed. DBP elevated, Detox score 5.
--- NOTE | 2019-12-24 02:34 | NUR ---
MEDICATED WITH LORAZEPAM 0.5MG IV FOR DETOX SCORE 5.
--- NOTE | 2019-12-24 04:10 | NUR ---
Detox score 3, no need for IV Ativan at this time.
--- NOTE | 2019-12-24 06:00 | NUR ---
Detox score 3. Was up to void with steady gait and back to bed. Is alert and oriented x3.
--- NOTE | 2019-12-24 08:00 | NUR ---
Shift assessment complete at this time. Plan of care reviewed at bedside with patient. Additional time taken to address any other needs or concerns. Vitals stable at this time. Pt denies pain or any other discomforts. Bed in low position, call light within reach, will continue to monitor.
[2019-12-24 10:40] LABS: MEAN CELL VOLUME 95 fl (80.0-100.0); MEAN CORPUSCULAR HEMOGLOBIN 33 pg (27.0-31.0); MEAN CORPUSCULAR HGB CONC 35 g/dl (33.0-37.0); MEAN PLATELET VOLUME 10.8 fl (7.4-10.4); PLATELET COUNT 103 K/mm3 (130-400); RED BLOOD COUNT 3.65 M/mm3 (4.10-5.30); REDCELL DISTRIBUTION WIDTH-CV 16.5 % (11.5-14.5)
[2019-12-24 10:41] LABS: HEMATOCRIT 34.8 % (37.0-47.0)
[2019-12-24 12:44] LABS: ANISOCYTOSIS 1+; BAND 1 % (0-10); LYMPHOCYTE 3 % (20.0-51.0); NEUTROPHILS 95 % (42.0-75.2); PLATELET ESTIMATE NORMAL (NORMAL)
--- NOTE | 2019-12-24 15:01 | NUR ---
SW contacted patient via telephone to discuss Home Health options. Patient informed this SW that sh is being transferred to medical. SW reviewed form with patient and indicated that a copy will be dropped off to her nurse for her, and that SW will follow up tomorrow to determine her preference. patient indicated she understood. Patient dropped off HH form to patients nurse as discussed.
--- NOTE | 2019-12-24 19:37 | NUR ---
Report given to KT Ruth.
--- NOTE | 2019-12-24 20:15 | NUR ---
Initial shift assessment done- requesting her Valium and informed it is time for that now-- denies being anxious- no tremors noted, denies SOB, 02 at 1L/nc, IV fluids of NS at 60cc/hr- does have some slight oozing around triple lumen site- all contained in dressing at this time- {was given Lovenox past couple days}now that is on hold--will change the dressing tonight--denies any pain, requested some jello as a snack
[2019-12-25] VITALS (9 sets, daily range): BP systolic 115–133; BP diastolic 69–86; PULSE 77–109; TEMP 97.6–99
[2019-12-25 05:29] LABS: BASO % 0.1 % (0.0-2.0); GRAN % 73.5 % (42.2-75.2); HEMATOCRIT 33.3 % (37.0-47.0); HEMOGLOBIN 11.3 g/dl (12.5-16.0); LYMPH # 1.6 (1.2-3.4); LYMPH % 19.2 % (20.0-51.0); MEAN CELL VOLUME 97 fl (80.0-100.0); MEAN CORPUSCULAR HEMOGLOBIN 33 pg (27.0-31.0); MEAN CORPUSCULAR HGB CONC 34 g/dl (33.0-37.0); MEAN PLATELET VOLUME 11.7 fl (7.4-10.4); MONO # 0.5 (0.1-0.6); MONO % 6.2 % (1.7-9.3); PLATELET COUNT 101 K/mm3 (130-400); RED BLOOD COUNT 3.43 M/mm3 (4.10-5.30); REDCELL DISTRIBUTION WIDTH-CV 16.9 % (11.5-14.5)
[2019-12-25 05:40] LABS: CALCIUM 8.4 mg/dL (8.4-10.2); CREATININE, serum 0.63 (0.52-1.25); MAGNESIUM 1.7 mg/dL (1.6-2.3); POTASSIUM 3.3 mmol/L (3.4-5.0)
--- NOTE | 2019-12-25 07:00 | NUR ---
States slept well, o2 at 1L/nc, not scoring per detox protocol,,, pt states had small BM this morning
--- NOTE | 2019-12-25 07:50 | NUR ---
Contacted hospitalist for diet order
--- NOTE | 2019-12-25 08:00 | NUR ---
Patient in bed resting. ALert and oriented x 3. Assessment complete. Right IJ noted without complications. INT to left forarm. IV fluids infusing to right AC. Denies pain at this time. Denies further needs at this time.
--- NOTE | 2019-12-25 09:10 | NUR ---
Hospitalist in to see patient.
--- NOTE | 2019-12-25 10:07 | NUR ---
PT TAKEN OFF 2 LPM NC FOR APPROX 1 MINUTE. PT SITTING QUIETLY IN BED. SPO2 DROPPED TO 88% O2 BACK ON @ 2 LPM NC.
--- NOTE | 2019-12-25 10:51 | NUR ---
INT to left AC discontinued, leaking; catheter tip intact.
--- NOTE | 2019-12-25 11:26 | NUR ---
First visit from the harvest worker. No needs right now.
--- NOTE | 2019-12-25 11:39 | NUR ---
The patient is to discharge today, 12/24 home. provided Medicare.gov's list of home health agencies that provide private duty services and their prices, the patient is self-pay. She states she will decide on an agency later. The patient was agreeable to go to [facility] in [place] for her follow-up appointment. spare parts clerk set-up appointment. There are no additional needs at this time.
--- NOTE | 2019-12-25 11:48 | NUR ---
Patient up to restroom, stand by assist with steady gait. Patient states she had medium sized formed bm
[2019-12-25] MEDS ORDERED: INCRUSE EL62.5 MCG/A IH (13:33)
[2019-12-25] MEDS ORDERED: AIRDUO RESPICL1 EAC1 IH (13:33)
[2019-12-25] MEDS ORDERED: PREDNISONE10 MG PO (13:34)
--- NOTE | 2019-12-25 14:25 | NUR ---
Notified Tess MONTE, patient scoring 4 on detox protocol.
--- NOTE | 2019-12-25 15:26 | NUR ---
Patient ok to discharge per Hospitalist.
--- NOTE | 2019-12-25 17:30 | NUR ---
Discharge education provided to patient. Educated on follow up appointments and when to call provider. IJ discontinued per orders. Pressure dressing applied. INT to right ac discontinued per orders, catheter tip intact. Denies further needs at this time. Patient out with surgical staff.
== END 2019-12-25 17:30 | disposition home or self-care (01) | DRG 190 ==
LOC: COL.ER 11:18 → ICU 12:41 → EDBEDREQ 12:49 → ICU 15:41 → IMCU 12-23 17:05 → SURG 12-24 17:00
PROVIDERS: Emergency Medicine; Physician Assistant; ADMIT Internal Medicine
PROC: 05HM33Z Insertion of Infusion Device into Right Internal Jugular Vein, Percutaneous Approach (ICD-10-PCS; principal; 2019-12-22)
DX: J44.1 Chronic obstructive pulmonary disease with (acute) exacerbation (principal); J96.01 Acute respiratory failure with hypoxia; J45.901 Unspecified asthma with (acute) exacerbation; F17.210 Nicotine dependence, cigarettes, uncomplicated; F10.10 Alcohol abuse, uncomplicated; Z20.828 Contact with and (suspected) exposure to other viral communicable diseases; Z90.710 Acquired absence of both cervix and uterus; Z98.51 Tubal ligation status
CPT/HCPCS: 99232-AI; 99233-AI; 99239; J0692; J1650; J2060; J2920; J2930; J3475; J7030; J7512

== ENCOUNTER 2020-01-31 09:32 | Emergency (ER) | payer SELFPAY ==
[~2020-01-31] VITALS: Ht 175.3 cm; Wt 61.4 kg
[~2020-01-31 09:32] MED LIST changes: +AIRDUO RESPICL1 EAC1 IH
[2020-01-31 09:51] VITALS: TEMP 98.4
[2020-01-31 11:13] LABS: BASO % 0.5 % (0.0-2.0); GRAN # 2.9 (1.4-6.5); GRAN % 68.9 % (42.2-75.2); HEMOGLOBIN 12.5 g/dl (12.5-16.0); LYMPH # 0.9 (1.2-3.4); MEAN CELL VOLUME 101 fl (80.0-100.0); MEAN CORPUSCULAR HEMOGLOBIN 34 pg (27.0-31.0); MEAN CORPUSCULAR HGB CONC 34 g/dl (33.0-37.0); MEAN PLATELET VOLUME 10.9 fl (7.4-10.4); MONO # 0.4 (0.1-0.6); MONO % 8.4 % (1.7-9.3); PLATELET COUNT 126 K/mm3 (130-400); RED BLOOD COUNT 3.68 M/mm3 (4.10-5.30); REDCELL DISTRIBUTION WIDTH-CV 16.9 % (11.5-14.5)
[2020-01-31 11:17] LABS: PROTHROMBIN TIME 11.3 SECONDS (9.7-12.8)
[2020-01-31 11:19] LABS: PARTIAL THROMBOPLASTIN TIME 33.9 SECONDS (26.0-37.0)
[2020-01-31 11:25] LABS: ALANINE AMINOTRANSFERASE 61 U/L (4-34); ALBUMIN 4.3 gm/dL (3.5-5.0); ALCOHOL(ethanol),MEDICAL < 10 mg/dL; ALKALINE PHOSPHATASE 101 U/L (50-136); ANION GAP 9 mmol/L (7-16); AST,SGOT 101 U/L (15-37); BILIRUBIN,TOTAL 0.9 mg/dL (0.0-1.0); BLOOD UREA NITROGEN 13 mg/dL (7-17); CALCIUM 9.8 mg/dL (8.4-10.2); CARBON DIOXIDE 29 mmol/L (22-30); CHLORIDE 98 mmol/L (98-107); CREATININE, serum 0.65 (0.52-1.25); GLUCOSE 117 mg/dL (74-106); MAGNESIUM 1.3 mg/dL (1.6-2.3); POTASSIUM 3.8 mmol/L (3.4-5.0); SODIUM 136 mmol/L (137-145)
[2020-01-31] MEDS ORDERED: ATIVAN 1MG T1 MG/TAB PO (12:01)
[2020-01-31 14:50] VITALS: BP 138/111; PULSE 105
== END 2020-01-31 14:56 | disposition home or self-care (01) ==
LOC: COL.ER 09:32
PROVIDERS: Emergency Medicine
DX: F10.239 Alcohol dependence with withdrawal, unspecified (principal); J44.9 Chronic obstructive pulmonary disease, unspecified; F17.210 Nicotine dependence, cigarettes, uncomplicated; Z79.51 Long term (current) use of inhaled steroids
CPT/HCPCS: J2060; J3411; J3475; J7030

== ENCOUNTER 2020-11-15 17:38 | Emergency (ER) | payer OTHER ==
[~2020-11-15] VITALS: Ht 175.3 cm; Wt 58.2 kg
[~2020-11-15 17:38] MED LIST changes: +ATIVAN 1MG T1 MG/TAB PO
[2020-11-15] MEDS ORDERED: ZYRTEC5 MG PO (18:40)
[2020-11-15 21:06] VITALS: BP 126/82; PULSE 100; TEMP 97.9
== END 2020-11-15 20:21 | disposition home or self-care (01) ==
LOC: COL.ER 17:38
DX: S06.0X0A Concussion without loss of consciousness, initial encounter (principal); S01.01XA Laceration without foreign body of scalp, initial encounter; S16.1XXA Strain of muscle, fascia and tendon at neck level, initial encounter; S20.212A Contusion of left front wall of thorax, initial encounter; F17.210 Nicotine dependence, cigarettes, uncomplicated; Z88.0 Allergy status to penicillin; Z88.1 Allergy status to other antibiotic agents; Y04.2XXA Assault by strike against or bumped into by another person, initial encounter

== ENCOUNTER → 2020-11-26 | Outpatient (CLI) | payer OTHER ==
[~2020-11-26] MED LIST changes: +IPRATROPIUM BROM3 M1 IH; +K-DUR20 MEQ PO; +NEB MC; +ZYRTEC5 MG PO
[2020-11-26 13:09] VITALS: BP 118/73; PULSE 120; TEMP 98.7
== END ==
LOC: COL.ER 13:02
DX: Z48.02 Encounter for removal of sutures (principal)

== ENCOUNTER 2021-01-27 10:49 | Emergency (ER) | payer OTHER ==
[~2021-01-27] VITALS: Ht 162.6 cm; Wt 54.5 kg
[~2021-01-27 10:49] MED LIST changes: -IPRATROPIUM BROM3 M1 IH; -K-DUR20 MEQ PO; -NEB MC
[2021-01-27 10:52] VITALS: TEMP 98.1
[2021-01-27 11:15] LABS: ARTERIAL BLD GAS O2 SATURATION 96.8 % (92-100); ARTERIAL BLD GAS TCO2 CT 29.5; ARTERIAL BLOOD GAS BASE EXCESS 2.2 (-2-2); ARTERIAL BLOOD GAS PCO2 48.6 mmHg (35-45); ARTERIAL BLOOD GAS PO2 96.4 mmHg (80-100); ARTERIAL BLOOD GAS pH 7.38 (7.35-7.45)
[2021-01-27 11:44] LABS: BASO % 0.5 % (0.0-2.0); EOS # 0.1 (0.0-0.7); EOS % 1.8 % (0-4.0); GRAN # 3.3 (1.4-6.5); GRAN % 53.6 % (42.2-75.2); HEMATOCRIT 38.6 % (37.0-47.0); HEMOGLOBIN 13.1 g/dl (12.5-16.0); LYMPH # 2.3 (1.2-3.4); LYMPH % 37.7 % (20.0-51.0); MEAN CELL VOLUME 104 fl (80.0-100.0); MEAN CORPUSCULAR HEMOGLOBIN 35 pg (27.0-31.0); MEAN CORPUSCULAR HGB CONC 34 g/dl (33.0-37.0); MEAN PLATELET VOLUME 11.8 fl (7.4-10.4); MONO # 0.4 (0.1-0.6); MONO % 6.1 % (1.7-9.3); PLATELET COUNT 129 K/mm3 (130-400); RED BLOOD COUNT 3.73 M/mm3 (4.10-5.30); REDCELL DISTRIBUTION WIDTH-CV 15.2 % (11.5-14.5)
[2021-01-27 13:16] LABS: ALANINE AMINOTRANSFERASE 56 U/L (4-34); ALBUMIN 4.2 gm/dL (3.5-5.0); ALKALINE PHOSPHATASE 115 U/L (50-136); ANION GAP 7 mmol/L (7-16); AST,SGOT 190 U/L (15-37); BILIRUBIN,TOTAL 0.5 mg/dL (0.0-1.0); BLOOD UREA NITROGEN 7 mg/dL (7-17); CALCIUM 11.3 mg/dL (8.4-10.2); CARBON DIOXIDE 31 mmol/L (22-30); CHLORIDE 100 mmol/L (98-107); CREATININE, serum 0.57 (0.52-1.25); GLUCOSE 86 mg/dL (74-106); POTASSIUM 3.3 mmol/L (3.4-5.0); SODIUM 139 mmol/L (137-145); TOTAL PROTEIN 7.9 gm/dL (6.4-8.2)
[2021-01-27 13:35] LABS: TROPONIN-I < 0.012 ng/mL (0.000-0.035)
[2021-01-27 13:47] LABS: C-REACTIVE PROTEIN 1.6 mg/dL (0.0-0.9)
[2021-01-27] MEDS ORDERED: PREDNISONE20 MG PO (15:19)
[2021-01-27] MEDS ORDERED: IPRATROPIUM BROM3 M1 IH (15:19)
[2021-01-27 16:10] VITALS: BP 121/73; PULSE 71
== END 2021-01-27 16:05 | disposition home or self-care (01) ==
LOC: COL.ER 10:49
PROVIDERS: Family Medicine; Nurse Practitioner Primary Care
DX: J44.1 Chronic obstructive pulmonary disease with (acute) exacerbation (principal); F17.210 Nicotine dependence, cigarettes, uncomplicated
CPT/HCPCS: J7030; J7512

== ENCOUNTER 2021-04-12 11:03 | Emergency (ER) | payer OTHER ==
[~2021-04-12] VITALS: Ht 175.3 cm; Wt 54.5 kg
[~2021-04-12 11:03] MED LIST changes: +IPRATROPIUM BROM3 M1 IH
[2021-04-12 11:36] LABS: BASO % 0.6 % (0.0-2.0); EOS # 0.1 (0.0-0.7); EOS % 1.6 % (0-4.0); GRAN % 57.7 % (42.2-75.2); HEMATOCRIT 38.4 % (37.0-47.0); HEMOGLOBIN 13.5 g/dl (12.5-16.0); LYMPH # 2.4 (1.2-3.4); LYMPH % 33.8 % (20.0-51.0); MEAN CELL VOLUME 102 fl (80.0-100.0); MEAN CORPUSCULAR HEMOGLOBIN 36 pg (27.0-31.0); MEAN CORPUSCULAR HGB CONC 35 g/dl (33.0-37.0); MEAN PLATELET VOLUME 11.6 fl (7.4-10.4); MONO # 0.4 (0.1-0.6); PLATELET COUNT 98 K/mm3 (130-400); RED BLOOD COUNT 3.78 M/mm3 (4.10-5.30); REDCELL DISTRIBUTION WIDTH-CV 14.6 % (11.5-14.5)
[2021-04-12 11:51] LABS: ALCOHOL(ethanol),MEDICAL 292 mg/dL; LIPASE 116 U/L (23-300)
[2021-04-12 12:13] LABS: TROPONIN-I < 0.012 ng/mL (0.000-0.035)
[2021-04-12 12:26] LABS: ALBUMIN 4.2 gm/dL (3.5-5.0); BILIRUBIN,TOTAL 0.9 mg/dL (0.0-1.0); CREATININE, serum 0.71 (0.52-1.25); POTASSIUM 3.1 mmol/L (3.4-5.0); TOTAL PROTEIN 7.7 gm/dL (6.4-8.2)
[2021-04-12 12:29] LABS: INR 1.1 (0.8-3.0); PROTHROMBIN TIME 12.7 SECONDS (9.7-12.8)
[2021-04-12 13:35] LABS: COLLECTION METHOD CLEAN CATCH
[2021-04-12 13:42] LABS: PH 7 (5-8); SQUAMOUS EPITHELIAL None Seen /hpf; URINE APPEARANCE Clear; URINE BACTERIA None Seen /hpf; URINE BILIRUBIN Negative (NEGATIVE); URINE BLOOD Negative (NEGATIVE); URINE COLOR Yellow; URINE GLUCOSE Negative (NEGATIVE); URINE KETONE Trace (NEGATIVE); URINE LEUKOCYTE ESTERASE Negative (NEGATIVE); URINE NITRATE Negative (NEGATIVE); URINE PROTEIN(semi-quant) Negative (NEGATIVE); URINE RBC 0-2 /hpf; URINE UROBILINOGEN Negative (NEGATIVE)
[2021-04-12] MEDS ORDERED: PREDNISONE20 MG PO (15:27)
[2021-04-12] MEDS ORDERED: K-DUR20 MEQ PO (15:27)
[2021-04-12] MEDS ORDERED: NEB MC (15:35)
[2021-04-12] MEDS ORDERED: IPRATROPIUM BROM3 M1 IH (15:35)
[2021-04-12 16:30] VITALS: BP 120/84; PULSE 96; TEMP 97.7
== END 2021-04-12 17:50 | disposition home or self-care (01) ==
LOC: COL.ER 11:03
PROVIDERS: Family Medicine; Physician Assistant
DX: J44.1 Chronic obstructive pulmonary disease with (acute) exacerbation (principal); E87.6 Hypokalemia; Z99.81 Dependence on supplemental oxygen; Z79.899 Other long term (current) drug therapy
CPT/HCPCS: J1100; J7030

== ENCOUNTER → 2021-05-30 | Outpatient (CLI) | payer OTHER ==
[~2021-05-30] MED LIST changes: +K-DUR20 MEQ PO; +NEB MC
== END ==
LOC: COL.RAD 12:47
DX: J44.1 Chronic obstructive pulmonary disease with (acute) exacerbation (principal)

== ENCOUNTER 2022-02-24 14:25 | Inpatient (IN) | payer OTHER ==
[~2022-02-24] VITALS: Ht 175.3 cm; Wt 47.4 kg
[2022-02-24] MEDS ORDERED: RT ADVAIR 228 DISKUS IH (14:41)
[2022-02-24] MEDS ORDERED: PROAIR HFA0.09 MG/AC IH (14:42)
[2022-02-24 15:48] LABS: BASO # 0.2 K/mm3 (0.0-0.2); BASO % 1.1 % (0.0-2.0); EOS # 0.7 K/mm3 (0.0-0.7); EOS % 4.8 % (0.0-4.0); GRAN # 9.9 K/mm3 (1.4-6.5); GRAN % 71.2 % (42.2-75.2); LYMPH # 2.4 K/mm3 (1.2-3.4); LYMPH % 17.1 % (20.0-51.0); MEAN CELL VOLUME 95 fl (80.0-100.0); MEAN CORPUSCULAR HGB CONC 33 g/dl (33.0-37.0); MEAN PLATELET VOLUME 11.5 fl (7.4-10.4); MONO # 0.7 K/mm3 (0.1-0.6); MONO % 4.9 % (1.7-9.3); PLATELET COUNT 309 K/mm3 (130-400); RED BLOOD COUNT 2.23 M/mm3 (4.10-5.30); REDCELL DISTRIBUTION WIDTH-CV 17.9 % (11.5-14.5)
[2022-02-24 15:51] LABS: HEMATOCRIT 21.2 % (37.0-47.0); MEAN CORPUSCULAR HEMOGLOBIN 31 pg (27-31)
[2022-02-24 16:07] LABS: ALANINE AMINOTRANSFERASE 9 U/L (0-55); ALBUMIN 2.8 gm/dL (3.5-5.0); ALKALINE PHOSPHATASE 278 U/L (40-150); ANION GAP 21 mmol/L (7-16); AST,SGOT 45 U/L (5-34); BILIRUBIN,TOTAL 0.7 mg/dL (0.2-1.2); BLOOD UREA NITROGEN 8 mg/dL (10-20); CALCIUM 8.3 mg/dL (8.4-10.2); CARBON DIOXIDE 20 mmol/L (22-29); CHLORIDE 98 mmol/L (98-107); CREATININE, serum 0.58 mg/dL (0.57-1.11); GLUCOSE 67 mg/dL (70-99); LIPASE 21 U/L (8-78); POTASSIUM 3.1 mmol/L (3.5-4.5); SODIUM 139 mmol/L (136-145); TOTAL PROTEIN 6.5 gm/dL (6.2-8.1)
[2022-02-24 16:14] LABS: TROPONIN-I < 0.010 ng/mL (0.00-0.033)
[2022-02-24 17:42] LABS: COLLECTION METHOD CLEAN CATCH
[2022-02-24 17:54] LABS: MUCOUS Present (NOT PRESENT); PH 7 (5-8); SQUAMOUS EPITHELIAL 0-2 /hpf (0-10); URINE APPEARANCE Clear (CLEAR/HAZY); URINE BACTERIA None Seen /hpf (NONE SEEN); URINE BLOOD Negative (NEGATIVE); URINE COLOR Yellow (YELLOW); URINE GLUCOSE Negative (NEGATIVE); URINE KETONE 1+ (NEGATIVE); URINE NITRATE Positive (NEGATIVE); URINE PROTEIN(semi-quant) Negative (NEGATIVE)
[2022-02-24] MEDS ORDERED: PROTONIX 40MG T40 MG PO (20:49)
--- NOTE | 2022-02-24 21:00 | NUR ---
PT ARRIVES VIA CART FROM ED TO ROOM 345. IS ALERT, IVF TO LEFT AC INFUSING WITHOUT PROBLEM. ASKING FOR A SANDWICH.
[2022-02-24 21:06] VITALS: BP 109/72; PULSE 111; TEMP 98.8
[2022-02-24] MEDS ORDERED: ATARAX 25MG25 MG/TAB PO (21:42)
--- NOTE | 2022-02-24 23:00 | NUR ---
PT INCONTINENT OF STOOL, ASSISTED TO BATHROOM TO VOID AND CHANGE DEPENDS.
[2022-02-24 23:49] VITALS: BP 100/65; PULSE 119; TEMP 98.3
[2022-02-25] VITALS (12 sets, daily range): BP systolic 97–112; BP diastolic 64–80; PULSE 101–116; TEMP 97.6–99
--- NOTE | 2022-02-25 00:22 | NUR ---
JOSSIE MONTE NOTIFIED OF GI PANEL RESULT OF C-DIFF.
--- NOTE | 2022-02-25 03:15 | NUR ---
MEDICATED WITH SOLUMEDROL 40MG IVP AND VANCO PO.
--- NOTE | 2022-02-25 06:30 | NUR ---
PT ASSISTED TO BATHROOM, VOIDS WITHOUT HAVING LOOSE STOOL. GAIT SLIGHTLY UNSTEADY. ORAL VANCO GIVEN. IVF CONTINUE TO LEFT AC.
[2022-02-25 06:43] LABS: BASO # 0.1 K/mm3 (0.0-0.2); EOS # 0.7 K/mm3 (0.0-0.7); EOS % 5.1 % (0.0-4.0); GRAN # 10.7 K/mm3 (1.4-6.5); GRAN % 78.9 % (42.2-75.2); LYMPH # 1.2 K/mm3 (1.2-3.4); LYMPH % 9.1 % (20.0-51.0); MEAN CELL VOLUME 96 fl (80.0-100.0); MEAN CORPUSCULAR HGB CONC 33 g/dl (33.0-37.0); MEAN PLATELET VOLUME 11.5 fl (7.4-10.4); MONO # 0.7 K/mm3 (0.1-0.6); MONO % 5.2 % (1.7-9.3); PLATELET COUNT 286 K/mm3 (130-400); RED BLOOD COUNT 1.88 M/mm3 (4.10-5.30); REDCELL DISTRIBUTION WIDTH-CV 18.1 % (11.5-14.5)
[2022-02-25 06:56] LABS: MEAN CORPUSCULAR HEMOGLOBIN 31 pg (27-31)
[2022-02-25 07:04] LABS: HEMOGLOBIN 5.9 g/dl (12.5-16.0)
[2022-02-25 07:08] LABS: ALBUMIN 2.4 gm/dL (3.5-5.0); BILIRUBIN,TOTAL 0.6 mg/dL (0.2-1.2); CALCIUM 7.3 mg/dL (8.4-10.2); CREATININE, serum 0.59 mg/dL (0.57-1.11); POTASSIUM 4.1 mmol/L (3.5-4.5); TOTAL PROTEIN 5.5 gm/dL (6.2-8.1)
[2022-02-25 07:11] LABS: MAGNESIUM 0.8 mg/dL (1.6-2.6)
--- NOTE | 2022-02-25 07:26 | NUR ---
Critical lab hgb and magnesium reported to hospitalist.
[2022-02-25 10:25] LABS: CLOSTRIDIUM DIFF A/B NEG; CLOSTRIDIUM DIFF A/B INTERP NonToxigenic C.diff
--- NOTE | 2022-02-25 10:55 | NUR ---
Instrument Maker Apprentice met with patient to discuss discharge planning. Patient lives in [place] with her , Rohit (ph#[phone]) and sees Sylvie Valverde for primary care. Patient obtains medications from [facility] with no difficulties and has an oxygen concentrator at home from [facility]. Patient uses no other DME and reports she is normally independent with ADLS, however has been having more difficulty over the last month. PT/OT ordered. Patient thinks she has completed DPOA-HC but is not sure. Patient plans to return home at time of discharge. Discharge Plan: Home
[2022-02-25 14:12] LABS: HEMATOCRIT 29.3 % (37.0-47.0); HEMOGLOBIN 9.5 g/dl (12.5-16.0)
--- NOTE | 2022-02-25 16:40 | NUR ---
PATIENT ALERT AND ORIENTED X3. VSS. PATIENT DENIES PAIN AT THIS TIME. IV TO LEFT AC WITH NS RUNNING AT 75ML/HOUR. PATIENT ON PRECAUTIONS FOR C-DIFF. ASSESSMENT PERFORMED. AM MEDS ADMINISTERED. NO LOOSE STOOLS THIS SHIFT. PATIENT IN BED WITH CALL LIGHT NEAR.
--- NOTE | 2022-02-25 21:30 | NUR ---
PT IN BED. REPORTS FEELING BETTER AFTER BLOOD TRANSFUSION. IVF INFUSING TO LEFT AC WITHOUT PROBLEM. DENIES PAIN. IS ON DETOX PROTOCOL, NO S/S OF WITHDRAWAL AT THIS TIME. REMAINS ON CDIFF ISOLATION.
[2022-02-26] VITALS (14 sets, daily range): BP systolic 109–137; BP diastolic 64–89; PULSE 93–113; TEMP 97.8–98.8
--- NOTE | 2022-02-26 00:38 | NUR ---
PT TAKES ORAL VANCO AND TUMS AT THIS TIME. UP TO BATHROOM, HAS LARGE LIQUID STOOL. BACK TO BED WITH STEADY GAIT.
--- NOTE | 2022-02-26 02:17 | NUR ---
MEDICATED WITH ATIVAN 1MG PO FOR SLEEP.
--- NOTE | 2022-02-26 06:00 | NUR ---
PT RESTING WELL AFTER ATIVAN. SCORING 2 ON DETOX PROTOCOL.
[2022-02-26 06:51] LABS: BASO # 0.1 K/mm3 (0.0-0.2); BASO % 0.6 % (0.0-2.0); EOS # 0.4 K/mm3 (0.0-0.7); EOS % 3.1 % (0.0-4.0); GRAN # 9.4 K/mm3 (1.4-6.5); LYMPH # 1.8 K/mm3 (1.2-3.4); LYMPH % 14.2 % (20.0-51.0); MEAN CELL VOLUME 96 fl (80.0-100.0); MEAN CORPUSCULAR HGB CONC 33 g/dl (33.0-37.0); MEAN PLATELET VOLUME 11.4 fl (7.4-10.4); MONO # 0.8 K/mm3 (0.1-0.6); MONO % 6.1 % (1.7-9.3); PLATELET COUNT 241 K/mm3 (130-400); REDCELL DISTRIBUTION WIDTH-CV 18.2 % (11.5-14.5)
[2022-02-26 07:00] LABS: HEMATOCRIT 20.1 % (37.0-47.0); HEMOGLOBIN 6.6 g/dl (12.5-16.0); MEAN CORPUSCULAR HEMOGLOBIN 31 pg (27-31)
[2022-02-26 07:17] LABS: ALBUMIN 2.2 gm/dL (3.5-5.0); BILIRUBIN,TOTAL 0.4 mg/dL (0.2-1.2); CALCIUM 7.9 mg/dL (8.4-10.2); CREATININE, serum 0.59 mg/dL (0.57-1.11); MAGNESIUM 1.7 mg/dL (1.6-2.6); POTASSIUM 4.1 mmol/L (3.5-4.5); TOTAL PROTEIN 5.1 gm/dL (6.2-8.1)
--- NOTE | 2022-02-26 07:19 | NUR ---
CRITICAL LAB CALLED TO HOSPITALIST
[2022-02-26 14:34] LABS: HEMATOCRIT 34.2 % (37.0-47.0); HEMOGLOBIN 11.3 g/dl (12.5-16.0)
--- NOTE | 2022-02-26 20:50 | NUR ---
PT IN BED. REPORTS "HEARTBURN". MEDICATED WITH TUMS AT THIS TIME. SCHEDULED HS MED GIVEN WELL. IVF TO RAC INFUSING WITHOUT PROBLEM. PT AWARE OF NPO AFTER MIDNIGHT STATUS. TOOK ATIVAN 1MG PO FOR SLEEP.
--- NOTE | 2022-02-26 23:10 | NUR ---
PT ASKING FOR MORE TUMS FOR HEARTBURN. MEDICATED WITH VANCO CAPSULE AT THIS TIME WELL. NOTIFIED OF EGD TIME FOR TOMORROW, CONSENT SIGNED.
[2022-02-27] VITALS (10 sets, daily range): BP systolic 115–131; BP diastolic 72–91; PULSE 94–109; TEMP 97.3–98.9
--- NOTE | 2022-02-27 02:10 | NUR ---
PT CONTINUES TO HAVE HEARTBURN, TUMS GIVEN.
[2022-02-27 07:14] LABS: BASO # 0.1 K/mm3 (0.0-0.2); BASO % 0.4 % (0.0-2.0); EOS % 0.1 % (0.0-4.0); GRAN # 16.7 K/mm3 (1.4-6.5); LYMPH # 1.5 K/mm3 (1.2-3.4); LYMPH % 7.8 % (20.0-51.0); MEAN CORPUSCULAR HGB CONC 34 g/dl (33.0-37.0); MONO # 0.8 K/mm3 (0.1-0.6); MONO % 4.3 % (1.7-9.3); PLATELET COUNT 251 K/mm3 (130-400); REDCELL DISTRIBUTION WIDTH-CV 17.4 % (11.5-14.5)
[2022-02-27 07:20] LABS: HEMATOCRIT 28.3 % (37.0-47.0); HEMOGLOBIN 9.6 g/dl (12.5-16.0); MEAN CELL VOLUME 91 fl (80.0-100.0); MEAN CORPUSCULAR HEMOGLOBIN 31 pg (27-31)
[2022-02-27 07:28] LABS: ALBUMIN 2.3 gm/dL (3.5-5.0); BILIRUBIN,TOTAL 0.5 mg/dL (0.2-1.2); CALCIUM 8.6 mg/dL (8.4-10.2); CREATININE, serum 0.55 mg/dL (0.57-1.11); MAGNESIUM 1.4 mg/dL (1.6-2.6); POTASSIUM 4.8 mmol/L (3.5-4.5); TOTAL PROTEIN 5.4 gm/dL (6.2-8.1)
--- NOTE | 2022-02-27 08:00 | NUR ---
Patient laying in bed, A&Ox4. VSS. IV CDI, fluids infusing. Denies pain and discomfort. On contact precautions. Patient NPO for a procedure. Call light within reach
--- NOTE | 2022-02-27 16:48 | NUR ---
Lumber Driver collaborated with OT who recommends Home Health if able. PERFECTO met with patient who is agreeable to this if her insurance, [employer] will cover it. SW met with patient and provided Medicare.gov list of HH agencies. [facility] SW explained to patient that [facility] will run her insurance and if she does not have HH benefits, we will have to look at outpatient therapy instead. Patient verbalized understanding. SW provided patient with information about Meals on Wheels as she has had difficulty with meal preparation. SW [facility] and patient's insurance will not cover HH. Patient will need outpatient PT follow up.
--- NOTE | 2022-02-27 17:58 | NUR ---
Patient had an EGD and tolerated well. BM's soft formed and patient states that she "feels better". A&Ox4. VSS. IV CDI. Denies pain and discomfort. Contact precautions in place. Call light within reach
[2022-02-27 21:11] LABS: HEMOGLOBIN 10.2 g/dl (12.5-16.0)
[2022-02-27 21:12] LABS: HEMATOCRIT 30.6 % (37.0-47.0)
--- NOTE | 2022-02-27 21:40 | NUR ---
Pt. sitting up in bed. Pt. is a&OX3, assessment complete. INT to lt. ac patent. INT to lt. ac patent, IV fluids infusing per orders. Pt. denies pain. Pt. requests a "sleeping pill". Discussed with pt. that ativan was discontinued d/t detox protocol being discontinued. LAVELL Avery notified. New orders for ativan. Pt. denies further needs, call light within reach.
[2022-02-28 04:23] VITALS: BP 121/79; PULSE 94; TEMP 97.5
[2022-02-28 06:18] LABS: BASO % 0.2 % (0.0-2.0); EOS # 0.2 K/mm3 (0.0-0.7); EOS % 1.3 % (0.0-4.0); GRAN # 13.3 K/mm3 (1.4-6.5); GRAN % 82.1 % (42.2-75.2); LYMPH # 1.7 K/mm3 (1.2-3.4); LYMPH % 10.7 % (20.0-51.0); MEAN CELL VOLUME 93 fl (80.0-100.0); MEAN CORPUSCULAR HGB CONC 33 g/dl (33.0-37.0); MEAN PLATELET VOLUME 10.9 fl (7.4-10.4); MONO # 0.8 K/mm3 (0.1-0.6); MONO % 4.7 % (1.7-9.3); PLATELET COUNT 237 K/mm3 (130-400); RED BLOOD COUNT 3.07 M/mm3 (4.10-5.30); REDCELL DISTRIBUTION WIDTH-CV 17.4 % (11.5-14.5)
[2022-02-28 06:23] LABS: HEMATOCRIT 28.6 % (37.0-47.0); HEMOGLOBIN 9.5 g/dl (12.5-16.0); MEAN CORPUSCULAR HEMOGLOBIN 31 pg (27-31)
[2022-02-28 06:35] LABS: ALBUMIN 2.1 gm/dL (3.5-5.0); BILIRUBIN,TOTAL 0.4 mg/dL (0.2-1.2); CALCIUM 8.5 mg/dL (8.4-10.2); CREATININE, serum 0.57 mg/dL (0.57-1.11); MAGNESIUM 1.3 mg/dL (1.6-2.6); POTASSIUM 4.6 mmol/L (3.5-4.5)
[2022-02-28 07:54] VITALS: BP 131/88; PULSE 105; TEMP 97.6
--- NOTE | 2022-02-28 10:30 | NUR ---
SW met with patient to discuss her insurance and that with her plan she does not have any HH benefits. Discussed with the patient about doing out patient therapy. Patient is ok with this option, however is concerned with how she would get there. Inquired on what supports she has which she stated her would have to take her but "he has to work". After collaboration with the patient's RN and hospitalist, it doesn't appear that ehr is a good support system. Patient's does not help with any of her ADL's at home including hygiene. Physician feel as thatif we were to discharge this patient she would be a high readmission risk and requests that SW explore SNF options.
[2022-02-28 11:23] VITALS: BP 129/81; PULSE 112; TEMP 97.9
--- NOTE | 2022-02-28 15:32 | NUR ---
washhouse worker notified by RN that the patient's daughter Afia ([phone]). Afia states that she and her siblings has all cut ties with the patient due to her heavy alcohol use. Afia also states that she is unsure if her step father ( the patient's ) is still living in the house or not. Afia states that he would call and update the children on their mother but she hasn't heard anything from him for around 2 years.
[2022-02-28 16:00] VITALS: BP 130/90; PULSE 111; TEMP 98.7
--- NOTE | 2022-02-28 17:21 | NUR ---
Patient sat up in the recliner for most of the shift. A&Ox4. VSS. IV CDI. Denies pain and discomfort. Calls for assistance with ambulation. Contact precautions in place. Call light within reach
[2022-02-28 20:44] VITALS: BP 136/89; PULSE 103; TEMP 98.9
--- NOTE | 2022-02-28 21:30 | NUR ---
Pt. sitting up in bed. Pt. is A&XO3, assessment complete. INT to lt. ac patent. Pt. denies pain or other needs, call light within reach.
[2022-03-01] VITALS (7 sets, daily range): BP systolic 121–140; BP diastolic 74–94; PULSE 100–117; TEMP 98.2–98.7
--- NOTE | 2022-03-01 07:07 | NUR ---
Patient resting in bed, A&Ox4. VSS. IV CDI. Denies pain and discomfort. Patient calls for assistance with ambulation. Contact precautions in place. Call light within reach
[2022-03-01 07:34] LABS: BASO # 0.1 K/mm3 (0.0-0.2); BASO % 0.3 % (0.0-2.0); EOS # 0.2 K/mm3 (0.0-0.7); EOS % 0.9 % (0.0-4.0); GRAN # 13.7 K/mm3 (1.4-6.5); GRAN % 85.2 % (42.2-75.2); LYMPH # 1.2 K/mm3 (1.2-3.4); LYMPH % 7.4 % (20.0-51.0); MEAN CELL VOLUME 94 fl (80.0-100.0); MEAN CORPUSCULAR HEMOGLOBIN 31 pg (27-31); MEAN CORPUSCULAR HGB CONC 33 g/dl (33.0-37.0); MONO # 0.9 K/mm3 (0.1-0.6); MONO % 5.3 % (1.7-9.3); PLATELET COUNT 234 K/mm3 (130-400); RED BLOOD COUNT 3.24 M/mm3 (4.10-5.30); REDCELL DISTRIBUTION WIDTH-CV 17.5 % (11.5-14.5)
[2022-03-01 07:46] LABS: HEMATOCRIT 30.5 % (37.0-47.0)
[2022-03-01 07:53] LABS: ALBUMIN 2.3 gm/dL (3.5-5.0); BILIRUBIN,TOTAL 0.5 mg/dL (0.2-1.2); CALCIUM 8.9 mg/dL (8.4-10.2); CREATININE, serum 0.58 mg/dL (0.57-1.11); MAGNESIUM 1.2 mg/dL (1.6-2.6); POTASSIUM 4.2 mmol/L (3.5-4.5); TOTAL PROTEIN 5.4 gm/dL (6.2-8.1)
--- NOTE | 2022-03-01 17:23 | NUR ---
Patient has had an uneventful day. A&Ox4. VSS, HR tachcardiac, doctor aware. IV CDI. Denies pain and discomfort. Calls nursing staff for assistance with ambulation. Contact precautions in place. Call light within reach
--- NOTE | 2022-03-01 22:00 | NUR ---
Pt. sitting up in bed. Pt. is A&OX3, assessment complete. INT to lt. ac kinked. Site removed. New site started, 22g to rt. forearm placed with 1 attempt. Pt. tolerated well. Pt. denies pain or other needs, call light within reach.
[2022-03-02 04:12] VITALS: BP 130/78; PULSE 106; TEMP 98.8
[2022-03-02 07:35] VITALS: BP 132/90; PULSE 115; TEMP 98.6
[2022-03-02 12:07] VITALS: BP 118/84; PULSE 104; TEMP 98.4
--- NOTE | 2022-03-02 13:06 | NUR ---
Librarian Specialist followed up with Alfonzo at [facility] who advised they did not receive referral. PERFECTO re-faxed. Elicia at [facility] advised they are still reviewing referral. Sherin at [facility] declined referral and advised they are concerned about being able to meet her needs and outpatient cancer workup. Sherin advised it also appeared patient's insurance does not have any SNF benefits. PERFECTO contacted Marlen, IPR Director and gave referral. Marlen reviewed with IPR Physician and will submit for authorization and meet with patient. Discharge Plan: IPR Screen
[2022-03-02 13:17] LABS: COLLECTION METHOD CLEAN CATCH
[2022-03-02 13:30] LABS: PH 6 (5-8); SQUAMOUS EPITHELIAL 0-2 /hpf (0-10); URINE APPEARANCE Hazy (CLEAR/HAZY); URINE BACTERIA None Seen /hpf (NONE SEEN); URINE BLOOD Negative (NEGATIVE); URINE COLOR Yellow (YELLOW); URINE GLUCOSE Negative (NEGATIVE); URINE KETONE Negative (NEGATIVE); URINE NITRATE Negative (NEGATIVE); URINE PROTEIN(semi-quant) Negative (NEGATIVE); URINE RBC 0-2 /hpf (0-2); URINE UROBILINOGEN Negative (NEGATIVE)
[2022-03-02 16:00] VITALS: BP 122/81; PULSE 107; TEMP 98.4
[2022-03-02 19:10] VITALS: BP 117/78; PULSE 78; TEMP 98.8
--- NOTE | 2022-03-02 22:28 | NUR ---
PATIENT IN BED ON ROOM ENTRY. ALERT AND ORIENTED. HS MEDS PER EMAR. DENIES PAIN. REQUEST ATIVAN FOR SLEEP.
[2022-03-02 23:14] VITALS: BP 119/78; PULSE 106; TEMP 98.5
[2022-03-03 04:30] VITALS: BP 129/87; PULSE 112; TEMP 98.6
[2022-03-03 06:43] LABS: BASO # 0.1 K/mm3 (0.0-0.2); BASO % 0.6 % (0.0-2.0); EOS # 0.5 K/mm3 (0.0-0.7); EOS % 4.5 % (0.0-4.0); GRAN # 8.5 K/mm3 (1.4-6.5); GRAN % 77.3 % (42.2-75.2); LYMPH # 1.1 K/mm3 (1.2-3.4); LYMPH % 10.2 % (20.0-51.0); MEAN CELL VOLUME 95 fl (80.0-100.0); MEAN CORPUSCULAR HGB CONC 33 g/dl (33.0-37.0); MEAN PLATELET VOLUME 11.5 fl (7.4-10.4); MONO # 0.8 K/mm3 (0.1-0.6); MONO % 6.8 % (1.7-9.3); PLATELET COUNT 166 K/mm3 (130-400); RED BLOOD COUNT 2.71 M/mm3 (4.10-5.30); REDCELL DISTRIBUTION WIDTH-CV 17.6 % (11.5-14.5)
[2022-03-03 06:45] LABS: HEMATOCRIT 25.6 % (37.0-47.0); HEMOGLOBIN 8.5 g/dl (12.5-16.0); MEAN CORPUSCULAR HEMOGLOBIN 31 pg (27-31)
[2022-03-03 07:16] LABS: BILIRUBIN,TOTAL 0.7 mg/dL (0.2-1.2); CALCIUM 8.4 mg/dL (8.4-10.2); CREATININE, serum 0.58 mg/dL (0.57-1.11); POTASSIUM 4.4 mmol/L (3.5-4.5); TOTAL PROTEIN 4.8 gm/dL (6.2-8.1)
[2022-03-03 07:23] VITALS: BP 125/92; PULSE 108; TEMP 98.6
--- NOTE | 2022-03-03 09:16 | NUR ---
PT A&O SITTING ON THE SIDE OF THE BED EATING BREAKFAST. AM MEDS GIVEN AND ASSESSMENT COMPLETED. NO N/V/D REPORTED. CONTACT PRECAUTIONS INITIATED. NO OTHER NEEDS AT THIS TIME. CALL LIGHT WITHIN REACH. DR GARNER IN WITH PT AND PLANNING TO DISCHARGE TODAY.
--- NOTE | 2022-03-03 11:07 | NUR ---
Building Services Engineer spoke with Marlen, IPR Director who advised they are waiting on insurance authorization. PERFECTO updated Hospitalist team. Discharge Plan: IPR once insurance approves
[2022-03-03 11:42] VITALS: BP 122/81; PULSE 109; TEMP 98.8
--- NOTE | 2022-03-03 12:53 | NUR ---
PT UP IN RECLINER WATCHING TV WAITING FOR LUNCH TO ARRIVE. NO NEEDS AT THIS TIME. CALL LIGHT WITHIN REACH.
--- NOTE | 2022-03-03 15:00 | NUR ---
PT RESTING IN BED. NO NEEDS AT THIS TIME. CALL LIGHT WITHIN REACH.
[2022-03-03 15:29] VITALS: BP 112/73; PULSE 103; TEMP 98.3
--- NOTE | 2022-03-03 17:30 | NUR ---
PT AWAKE SITTING UP IN BED. FOOD HAS BEEN ORDERED. STILL WAITING ON PLACEMENT. PT DENIES ANY NEEDS AT THIS TIME.
[2022-03-03 19:28] VITALS: BP 126/83; PULSE 106; TEMP 98.7
--- NOTE | 2022-03-03 21:45 | NUR ---
Pt. sitting up in bed. Pt. is A&OX3, assessment complete. Pt. denies pain or other needs, call light within reach.
[2022-03-04] VITALS (7 sets, daily range): BP systolic 125–143; BP diastolic 80–88; PULSE 11–121; TEMP 98–99.5
--- NOTE | 2022-03-04 10:00 | NUR ---
Pt doing well with no complaints. pt is still having frequent bowel movement, but states that are becoming more formed. No pain complaints. She is aware that we are still waiting on insurance
--- NOTE | 2022-03-04 20:25 | NUR ---
Pt. sitting up in bed. Pt. is A&OX3, assessment complete. INT to rt. forearm patent. Pt. denies pain or other needs, call light within reach.
[2022-03-05 03:33] VITALS: BP 129/86; PULSE 96; TEMP 98.7
[2022-03-05 07:14] VITALS: BP 137/88; PULSE 118; TEMP 98.8
[2022-03-05 08:49] LABS: BASO # 0.1 K/mm3 (0.0-0.2); BASO % 0.7 % (0.0-2.0); EOS # 0.5 K/mm3 (0.0-0.7); EOS % 3.1 % (0.0-4.0); GRAN # 11.4 K/mm3 (1.4-6.5); GRAN % 79.7 % (42.2-75.2); LYMPH # 1.3 K/mm3 (1.2-3.4); LYMPH % 9.3 % (20.0-51.0); MEAN CELL VOLUME 94 fl (80.0-100.0); MEAN CORPUSCULAR HGB CONC 33 g/dl (33.0-37.0); MEAN PLATELET VOLUME 11.8 fl (7.4-10.4); MONO % 6.7 % (1.7-9.3); PLATELET COUNT 164 K/mm3 (130-400); RED BLOOD COUNT 2.78 M/mm3 (4.10-5.30); REDCELL DISTRIBUTION WIDTH-CV 17.3 % (11.5-14.5)
[2022-03-05 08:56] LABS: HEMATOCRIT 26.2 % (37.0-47.0); HEMOGLOBIN 8.7 g/dl (12.5-16.0); MEAN CORPUSCULAR HEMOGLOBIN 31 pg (27-31)
[2022-03-05 09:07] LABS: CALCIUM 8.9 mg/dL (8.4-10.2); CREATININE, serum 0.57 mg/dL (0.57-1.11); POTASSIUM 4.1 mmol/L (3.5-4.5)
[2022-03-05 11:53] VITALS: BP 122/87; PULSE 106; TEMP 99.1
[2022-03-05 16:00] VITALS: BP 147/97; PULSE 115; TEMP 98.8
--- NOTE | 2022-03-05 18:23 | NUR ---
PATIENT ALERT AND ORIENTED X3. VSS. ASSESSMENT PERFORMED. AM MEDS ADMINISTERED. PATIENT DENIES PAIN. PATIENT ON CONTACT PRECAUTIONS. PATIENT ENCOURAGED TO UTILIZE WALKER TO BATHROOM PER THERAPY RECOMMENDATIONS. PATIENT IS NON COMPLIANT WITH WALKER USE AND INSISTS THAT SHE WOULD LIKE ASSISTANCE TO BATHROOM INSTEAD. PATIENT RESTING IN BED WITH CALL LIGHT NEAR.
[2022-03-05 18:57] VITALS: BP 138/85; PULSE 116; TEMP 97.8
--- NOTE | 2022-03-05 21:00 | NUR ---
PT CALLS FOR ASSIST TO BATHROOM, SBA PROVIDED. PT REFUSES TO USE WALKER, REPORTS SHE DOESN'T NEED IT. INT TO RFA. TAKES HS MED WITHOUT PROBLEM. DENIES LOOSE STOOLS, REMAINS ON ORAL VANCO FOR CDIFF.
--- NOTE | 2022-03-05 22:30 | NUR ---
PT TAKES ATIVAN FOR SLEEP.
[2022-03-05 23:55] VITALS: BP 124/72; PULSE 101; TEMP 97.8
[2022-03-06 03:40] VITALS: BP 136/89; PULSE 109; TEMP 98.8
--- NOTE | 2022-03-06 06:00 | NUR ---
AM MED GIVEN. PT REPORTS RESTING WELL.
[2022-03-06 08:00] VITALS: BP 142/85; PULSE 107; TEMP 98.2
[2022-03-06 11:24] VITALS: BP 128/83; PULSE 105; TEMP 98
[2022-03-06] MEDS ORDERED: FOLIC ACID 11 MG/TA1 PO (11:56)
[2022-03-06] MEDS ORDERED: ZOFRAN ODT4 MG PO (11:56)
[2022-03-06] MEDS ORDERED: DUO-KAPS1 CAP PO (11:56)
[2022-03-06] MEDS ORDERED: THIAMINE 1100 MG/TAB PO (11:56)
[2022-03-06] MEDS ORDERED: VANCOCIN H125 MG/CAP PO (11:58)
--- NOTE | 2022-03-06 12:52 | NUR ---
Patient to discharge to [facility] today as Marlen, Director secured insurance authorization.
--- NOTE | 2022-03-06 15:15 | NUR ---
PATIENT DISCHARGED TO [facility]. BELONGINGS WALKED OVER. MEDICATIONS TAKEN TO [facility] MED ROOM. PATIENT AMULATED, RESISTED GAIT BELT, WHEELCHAIR PUSHED BEHIND PATIENT.
[2022-03-06] MEDS ORDERED: NICODERM C21 MG/PATC TD (15:31)
[2022-03-06] MEDS ORDERED: ATIVAN 1MG T1 MG/TAB PO (15:32)
[2022-03-06] MEDS ORDERED: TUMS500 MG (15:33)
== END 2022-03-06 15:15 | DRG 871 ==
LOC: COL.ER 14:25 → SURG 20:10
PROVIDERS: Internal Medicine Gastroenterology; Nurse Practitioner Family; Physician Assistant; ADMIT Student in an Organized Health Care Education/Training Program
PROC: 0DB78ZX Excision of Stomach, Pylorus, Via Natural or Artificial Opening Endoscopic, Diagnostic (ICD-10-PCS; principal; 2022-02-27 13:30)
PROC: 30233N1 Transfusion of Nonautologous Red Blood Cells into Peripheral Vein, Percutaneous Approach (ICD-10-PCS; 2022-03-02)
DX: A41.9 Sepsis, unspecified organism (principal); E43 Unspecified severe protein-calorie malnutrition; K21.01 Gastro-esophageal reflux disease with esophagitis, with bleeding; N39.0 Urinary tract infection, site not specified; J44.1 Chronic obstructive pulmonary disease with (acute) exacerbation; A04.72 Enterocolitis due to Clostridium difficile, not specified as recurrent; G72.81 Critical illness myopathy; Z68.1 Body mass index [BMI] 19.9 or less, adult; R65.20 Severe sepsis without septic shock; K21.9 Gastro-esophageal reflux disease without esophagitis; L29.9 Pruritus, unspecified; F17.210 Nicotine dependence, cigarettes, uncomplicated; Z20.822 Contact with and (suspected) exposure to COVID-19; E87.6 Hypokalemia; D64.9 Anemia, unspecified; E86.0 Dehydration; F10.10 Alcohol abuse, uncomplicated; K44.9 Diaphragmatic hernia without obstruction or gangrene; M62.81 Muscle weakness (generalized); E83.42 Hypomagnesemia; K27.9 Peptic ulcer, site unspecified, unspecified as acute or chronic, without hemorrhage or perforation; R35.0 Frequency of micturition; R74.01 Elevation of levels of liver transaminase levels; Z23 Encounter for immunization; Z90.710 Acquired absence of both cervix and uterus; Z98.51 Tubal ligation status; Z91.041 Radiographic dye allergy status; Z88.0 Allergy status to penicillin; Z88.8 Allergy status to other drugs, medicaments and biological substances; Z91.048 Other nonmedicinal substance allergy status; Z99.81 Dependence on supplemental oxygen; Z85.41 Personal history of malignant neoplasm of cervix uteri
CPT/HCPCS: 99233-AI; J0696; J0744; J2405; J2704; J2920; J3475; J3480; J7030; J7512; P9016; Q9967

== ENCOUNTER 2022-03-06 14:46 | Inpatient (IN) | payer OTHER ==
[~2022-03-06] VITALS: Ht 175.3 cm; Wt 48.1 kg
--- NOTE | 2022-03-06 14:30 | NUR ---
ADMISSION NOTE, PATIENT WAS TRANSFER FROM SURGIAL UNIT, PATIENT ALERT AND ORIENT X 3. ABLE TO MAKE NEEDS KNOWN. PATIENT ABLE TO ABULATED ON HER OWN IN HER ROOM.EATING IS GOOD, LUNG SOUND CLEAR IN ALL LOBES. BOWEL MOVEMENT SEVERE TIMES A DAY(LOOSE AND FORM) PATIENT IS IN ROOM 335 NOW. NO SIGN OF DISTRESS. PATIENT CALL LIGHT IN REACH. PHONE IN REACH AND TABLE.
[~2022-03-06 14:46] MED LIST changes: +DUO-KAPS1 CAP PO; +PROTONIX 40MG T40 MG PO; +VANCOCIN H125 MG/CAP PO; +ZOFRAN ODT4 MG PO
[2022-03-06 15:24] VITALS: BP 134/87; PULSE 109; TEMP 98.3
[2022-03-06] MEDS ORDERED: NICODERM C21 MG/PATC TD (15:31)
[2022-03-06] MEDS ORDERED: ATIVAN 1MG T1 MG/TAB PO (15:32)
[2022-03-06] MEDS ORDERED: TUMS500 MG (15:33)
[2022-03-06 16:54] VITALS: BP 133/82; PULSE 108; TEMP 98.6
[2022-03-06 18:08] VITALS: BP 133/82; PULSE 108; TEMP 98.6
--- NOTE | 2022-03-06 18:44 | NUR ---
RECEIVED CHANGE OF SHIFT REPORT FROM DAY SHIFT RNDEDRA.
--- NOTE | 2022-03-07 01:19 | NUR ---
PATIENT UP TO BATHROOM WITH GAIT BELT ON AT TIME BUT REFUSES TO USE WHEELED WALKER. BED EXIT ALARM ON WHEN IN BED WITH CALL LIGHT WITHIN REACH.
[2022-03-07 05:46] VITALS: BP 141/82; PULSE 103; TEMP 98.7
--- NOTE | 2022-03-07 06:40 | NUR ---
Shift report received from machinist mate RN. Pt. sleeping in left side lying position. Call light is within her reach
--- NOTE | 2022-03-07 07:09 | NUR ---
CHANGE OF SHIFT REPORT GIVEN TO DAY SHIFT RNSARAN.
--- NOTE | 2022-03-07 12:41 | NUR ---
stopped by but nothing needed at this time.
--- NOTE | 2022-03-07 15:27 | NUR ---
SW met with patient to complete intake. Patient states that she lives in [facility] with her Rohit [phone]. Patient states that she does not utilize DME, is independent with ADLs, and does not utilize any HH services at this time. Patient provides that her PCP is Dr. Valverde, and pharmacy is [facility]. Patient states that she does not have anyone appointed DPOA/HC and did not wish to appoint anyone at this time. SW will continue to follow. DC plan: home
--- NOTE | 2022-03-07 16:09 | NUR ---
Pt. resting supine in bed, watching television. She denies pain or discomfort. Denies loose/watery stools this shift so far. Denies further needs. Call light is within her reach
[2022-03-07 17:11] VITALS: BP 140/84; PULSE 108; TEMP 98.7
--- NOTE | 2022-03-07 18:45 | NUR ---
RECEIVED CHANGE OF SHIFT REPORT FROM DAY SHIFT RN.
[2022-03-08 05:03] VITALS: BP 148/99; PULSE 106; TEMP 99.3
--- NOTE | 2022-03-08 07:24 | NUR ---
CHANGE OF SHIFT REPORT GIVEN TO DAY SHIFT RNLUIS ANGEL.
--- NOTE | 2022-03-08 08:32 | NUR ---
Pt doing well this morning, no complaints. She reports having a good night. Pt does get around well in her room although a little unsteady. Pt has had breakfast and is dressed and ready for the day. Pt reports no needs, call light within reach
[2022-03-08 17:19] VITALS: BP 134/87; PULSE 104; TEMP 99.7
--- NOTE | 2022-03-08 18:33 | NUR ---
Pt has not needed much throughout the day. No pain complaints, eating well.
--- NOTE | 2022-03-08 18:43 | NUR ---
RECEIVED CHANGE OF SHIFT REPORT FROM DAY SHIFT RN.
[2022-03-08 22:11] VITALS: TEMP 98.8
[2022-03-09 04:09] VITALS: TEMP 98.3
[2022-03-09 04:29] VITALS: BP 149/93; PULSE 100; TEMP 98.3
[2022-03-09 06:46] LABS: BASO # 0.1 K/mm3 (0.0-0.2); BASO % 0.8 % (0.0-2.0); EOS # 0.4 K/mm3 (0.0-0.7); EOS % 2.8 % (0.0-4.0); GRAN % 75.8 % (42.2-75.2); LYMPH # 1.7 K/mm3 (1.2-3.4); LYMPH % 12.7 % (20.0-51.0); MEAN CELL VOLUME 99 fl (80.0-100.0); MEAN CORPUSCULAR HGB CONC 32 g/dl (33.0-37.0); MEAN PLATELET VOLUME 11.8 fl (7.4-10.4); MONO % 7.3 % (1.7-9.3); PLATELET COUNT 224 K/mm3 (130-400); RED BLOOD COUNT 2.64 M/mm3 (4.10-5.30); REDCELL DISTRIBUTION WIDTH-CV 17.3 % (11.5-14.5)
[2022-03-09 06:51] LABS: HEMOGLOBIN 8.4 g/dl (12.5-16.0); MEAN CORPUSCULAR HEMOGLOBIN 32 pg (27-31)
[2022-03-09 07:05] LABS: ALBUMIN 2.6 gm/dL (3.5-5.0); BILIRUBIN,TOTAL 0.7 mg/dL (0.2-1.2); C-REACTIVE PROTEIN 3.67 mg/dL (0.00-0.50); CALCIUM 9.7 mg/dL (8.4-10.2); CREATININE, serum 0.67 mg/dL (0.57-1.11); MAGNESIUM 1.2 mg/dL (1.6-2.6); TOTAL PROTEIN 6.1 gm/dL (6.2-8.1)
--- NOTE | 2022-03-09 07:09 | NUR ---
CHANGE OF SHIFT REPORT GIVEN TO DAY SHIFT RNLUIS ANGEL
--- NOTE | 2022-03-09 08:00 | NUR ---
Pt doing well today, some pain complaints in her neck, stated she slept wrong on it. Pt aware of her therapy schedule today. Hoping to come out of isolation precautions. No needs verbalized, will continue to monitor
--- NOTE | 2022-03-09 10:05 | NUR ---
SW met with the patient to follow up after the weekend and introduce oneself. The patient states that she is doing well, just tired. The patient reports that she lives in [place] with her , Rohit. They have a [place] address. She confirms she does not have any DME.
--- NOTE | 2022-03-09 16:00 | NUR ---
Pt has done well throughout the day. Worked well with therapy, minimal needs, reports no pain
[2022-03-09 17:03] VITALS: BP 146/87; PULSE 102; TEMP 97.9
[2022-03-10 05:31] VITALS: BP 135/78; PULSE 99; TEMP 98.7
--- NOTE | 2022-03-10 07:01 | NUR ---
Shift report received from shift supervisor film processing RN. Pt. resting in left side lying position in bed. Denies pain/discomfort. Denies additional needs. Call light is within her reach
--- NOTE | 2022-03-10 08:15 | NUR ---
ASSESSMENT DONE. PATIENT ALERTX4. ABLE TO WALK AROUND WITH OUT ANY DEVICE. APPETITE GOOD(ATE 100%)LUNG CLEAR IN ALL LOBES. BOWEL SOUND ACTIVE IN ALL 4 QUAD .pATINET STATED SHE HAD A BOWEL MOVEMENT TODAY (SOFT AND FORM). CALL LIGHT IN REACH. WATER IN REACH.
[2022-03-10 17:16] VITALS: BP 137/81; PULSE 103; TEMP 98.8
--- NOTE | 2022-03-10 17:26 | NUR ---
Pt. c/o neck pain after "sleeping wrong on it". Pt. requesting a heating pad. K-pad given. Denies having VILLASENOR. Denies additional needs. Call light is within her reach
--- NOTE | 2022-03-10 19:00 | NUR ---
RECEIVED CHANGE OF SHIFT REPORT FROM DAY SHIFT RN.
[2022-03-11 05:35] VITALS: BP 141/85; PULSE 103; TEMP 98.3
--- NOTE | 2022-03-11 06:52 | NUR ---
CHANGE OF SHIFT REPORT GIVEN TO DAY SHIFT RNs, JAYA.
--- NOTE | 2022-03-11 07:00 | NUR ---
CHANGE OF SHIFT REPORT GIVEN TO DAY SHIFT RNs, JAYA. PATIENT UP INDEPENDENTLY IN ROOM WITH NO REPORTED PROBLEMS OR CONCERNS.
--- NOTE | 2022-03-11 08:44 | NUR ---
BEDSIDE REPORT DONE. PATIENT HAD A GOOD NIGH. CALL LIGHT IN REACH. PATIENT RESTING WHEN I CHECK ON HER.
--- NOTE | 2022-03-11 10:56 | NUR ---
ASSESSMENT DONE ORDER. PATIENT ALERTX4 WITH NO PAIN NOTED. LUNG CLEAR IN ALL LOBES. BOWEL SOUND ACTIVE IN AL 4 QUADS. PATIENT APPETITE HAS BEEN GOOD ATE 100% OF HER BREAKFASE. PATIENT IS MOD 1 IN ROOM NOW. CALL LIGHT IN REACH.
--- NOTE | 2022-03-11 14:24 | NUR ---
PERFECTO met with the patient to present and review the IPR Team Conference Note. The team has set a discharge date for tomorrow, 03/12, with outpatient PT/OT. The patient is in agreement to the discharge and would like to do outpatient therapy at [facility] on [facility] [address]. PERFECTO contacted [facility] and secured the patient a PT appointment on 03/24 at 0945 and an OT appointment on 03/24 at 1045. PERFECTO notified the loading unit operator seating of the appointment. Orders will need to be faxed to [facility].
[2022-03-11 17:25] VITALS: BP 131/80; PULSE 104; TEMP 98.6
--- NOTE | 2022-03-11 19:00 | NUR ---
RECEIVED CHANGE OF SHIFT REPORT FROM DAY SHIFT RN.
--- NOTE | 2022-03-12 00:24 | NUR ---
PATIENT SLEEPING, UP IN ROOM PER SELF WITH NO REPORTED PROBLEMS OR CONCERNS. ANTICIPATES DISCHARGE FROM [facility] LATER TODAY. CALL LIGHT WITHIN REACH.
[2022-03-12 05:32] VITALS: BP 104/63; PULSE 102; TEMP 98.7
--- NOTE | 2022-03-12 07:22 | NUR ---
CHANGE OF SHIFT REPORT GIVEN TO DAY SHIFT ZURDO MERAZ.
--- NOTE | 2022-03-12 08:33 | NUR ---
PT SITTING UP IN BED, EATING BREAKFAST. MORNING MEDICATIONS GIVEN. SHIFT ASSESSMENT COMPLETED. PT DENIES ANY PAIN OR NEEDS AT THIS TIME. IS EAGER FOR D/C. PT UPDATED ON POC. WILL CONTINUE TO MONITOR.
[2022-03-12] MEDS ORDERED: NICODERM C21 MG/PATC TD (09:28)
[2022-03-12] MEDS ORDERED: MAG-OX 400400 MG/TAB PO (09:29)
[2022-03-12] MEDS ORDERED: PROTONIX 40MG T40 MG PO (09:30)
[2022-03-12] MEDS ORDERED: DAILY MULTIPLE1 T18 PO (09:31)
[2022-03-12] MEDS ORDERED: FOLIC ACID 11 MG/TA1 PO (09:32)
[2022-03-12] MEDS ORDERED: NATURE'S BLEND100 M2 PO (09:32)
--- NOTE | 2022-03-12 09:43 | NUR ---
Initial visit; Patient thanked Senior Production Planner for looking in on her and offering comfort and God's blessings.
--- NOTE | 2022-03-12 10:45 | NUR ---
DISCHARGE INSTRUCTIONS GIVEN, ALL QUESTIONS ANSWERED. PT BELONGINGS PACKED UP, WAITING FOR TO ARRIVE FOR TRANSPORTATION.
--- NOTE | 2022-03-12 10:57 | NUR ---
The patient is to discharge back home with her today, 03/12, with outpatient PT/OT from [facility]. SW faxed the patient's orders to [facility]. No additional needs at this time.
--- NOTE | 2022-03-12 11:10 | NUR ---
PT ESCORTED OFF OF UNIT AT THIS TIME. WILL D/C FROM SYSTEM.
== END 2022-03-12 11:10 | disposition home or self-care (01) | DRG 947 ==
PROVIDERS: Internal Medicine; ADMIT Physical Medicine & Rehabilitation Sports Medicine
DX: R53.81 Other malaise (principal); A41.9 Sepsis, unspecified organism; R65.20 Severe sepsis without septic shock; N39.0 Urinary tract infection, site not specified; A04.72 Enterocolitis due to Clostridium difficile, not specified as recurrent; J44.1 Chronic obstructive pulmonary disease with (acute) exacerbation; E46 Unspecified protein-calorie malnutrition; Z68.1 Body mass index [BMI] 19.9 or less, adult; G72.81 Critical illness myopathy; R35.0 Frequency of micturition; R11.2 Nausea with vomiting, unspecified; R26.89 Other abnormalities of gait and mobility; K21.9 Gastro-esophageal reflux disease without esophagitis; F17.210 Nicotine dependence, cigarettes, uncomplicated; K27.9 Peptic ulcer, site unspecified, unspecified as acute or chronic, without hemorrhage or perforation; D64.89 Other specified anemias; F10.10 Alcohol abuse, uncomplicated; R63.4 Abnormal weight loss; E87.6 Hypokalemia; E83.42 Hypomagnesemia; R79.89 Other specified abnormal findings of blood chemistry; Z99.81 Dependence on supplemental oxygen; Z79.899 Other long term (current) drug therapy; Z79.51 Long term (current) use of inhaled steroids; Z73.6 Limitation of activities due to disability; Z79.2 Long term (current) use of antibiotics; Z88.0 Allergy status to penicillin; Z88.8 Allergy status to other drugs, medicaments and biological substances; Z91.048 Other nonmedicinal substance allergy status
CPT/HCPCS: 99232-AI

== ENCOUNTER 2022-09-09 10:26 | Inpatient (IN) | payer OTHER ==
[~2022-09-09] VITALS: Ht 175.3 cm; Wt 52.7 kg
[2022-09-09] VITALS (7 sets, daily range): BP systolic 109–118; BP diastolic 66–76; PULSE 111–116; TEMP 97.7–100.2
[~2022-09-09 10:26] MED LIST changes: +DAILY MULTIPLE1 T18 PO; +MAG-OX 400400 MG/TAB PO; +NICODERM C21 MG/PATC TD; +TUMS500 MG
[2022-09-09 10:49] LABS: BASO # 0.1 K/mm3 (0.0-0.2); BASO % 0.6 % (0.0-2.0); EOS # 0.1 K/mm3 (0.0-0.7); EOS % 1.6 % (0.0-4.0); GRAN # 6.3 K/mm3 (1.4-6.5); GRAN % 75.4 % (42.2-75.2); HEMOGLOBIN 12.2 g/dl (12.5-16.0); LYMPH # 1.4 K/mm3 (1.2-3.4); LYMPH % 16.7 % (20.0-51.0); MEAN CELL VOLUME 104 fl (80.0-100.0); MEAN CORPUSCULAR HEMOGLOBIN 35 pg (27-31); MEAN CORPUSCULAR HGB CONC 33 g/dl (33.0-37.0); MEAN PLATELET VOLUME 11.5 fl (7.4-10.4); MONO # 0.4 K/mm3 (0.1-0.6); MONO % 5.3 % (1.7-9.3); PLATELET COUNT 98 K/mm3 (130-400); REDCELL DISTRIBUTION WIDTH-CV 16.5 % (11.5-14.5)
[2022-09-09 10:51] LABS: HEMATOCRIT 36.5 % (37.0-47.0)
[2022-09-09 11:12] LABS: INR 1.2 (0.8-3.0); PROTHROMBIN TIME 13.8 SECONDS (9.7-12.8)
[2022-09-09 11:22] LABS: BILIRUBIN,TOTAL 1.2 mg/dL (0.2-1.2); CALCIUM 8.4 mg/dL (8.4-10.2); CREATININE, serum 0.69 mg/dL (0.57-1.11); POTASSIUM 3.6 mmol/L (3.5-4.5); TOTAL PROTEIN 6.7 gm/dL (6.2-8.1)
[2022-09-09 11:27] LABS: COLLECTION METHOD CATHETER
[2022-09-09 11:39] LABS: URINE BACTERIA Many /hpf (NONE SEEN); URINE RBC 0-2 /hpf (0-2)
[2022-09-09 11:42] LABS: PH 5.5 (5.0-8.5); URINE APPEARANCE Clear (CLEAR/HAZY); URINE COLOR Amber (YELLOW); URINE GLUCOSE Negative (NEGATIVE); URINE KETONE TRACE (NEGATIVE); URINE PROTEIN(semi-quant) 1+ (NEGATIVE)
[2022-09-09 11:43] LABS: URINE BLOOD TRACE-INTACT (NEGATIVE); URINE NITRATE Negative (NEGATIVE)
--- NOTE | 2022-09-09 18:13 | NUR ---
INCREASED BUCKS TRACTION BY 2LBS FOR A TOTAL OF 5LBS. PATIENT TOLERATED. UNABLE TO COMPLETE SKIN ASSESSMENT. PATIENT DID NOT TOLERATE ANY MOVEMENT EVEN WITH IV MORPHINE AND ORAL DEB. MOST OF ASSESSMENT COMPLETE. SOME COMPONENTS OF ASSESSMENT REFUSED BY PATIENT DUE TO INCREASED PAIN LEVEL. PATIENT REPORTS PAIN 9/10, IV MORPHINE ADMINISTERED X2 WITH ORAL DEB. MED RX COMPLETE PER PATIENT'S RECOLLECTION. PATIENT REFUSED SOME ORAL MEDS ORDERED BY DR. LEVIN. PATIENT BECAME NAUSEATED, IV ZOFRAN ADMINISTERED. PATIENT RESTING IN BED WITH CALL LIGHT NEAR.
--- NOTE | 2022-09-09 18:33 | NUR ---
PER CIWA PROTOCOL, PATIENT SCORING 6. 1MG ATIVAN ADMINISTERED.
--- NOTE | 2022-09-09 20:38 | NUR ---
SHIFT REPORT FROM DEDRA MERAZ. PATIENT IN BED ON ROOM ENTRY. ALERT BUT DROWSY. HS MEDS PER EMAR. PRN DEB FOR 9/10 PAIN TO R FEMUR PER PATIENT AND 0.5 MG OF ATIVAN PER CIWA SCORE. ADDED 3 LBS TO BUCKS TRACTION, CURRENTLY AT 8 LBS TOTAL. HERNANDEZ TO DD WITH IRMA OUTPUT. R FEMUR WITH OBVIOUS DEFORMITY. IVF TO L FA WITHOUT ISSUE. L ARM TERRELL PATCH IN PLACE. L FA HAS ST AND HEMATOMA. DENIES ADDITIONAL NEEDS AT THIS TIME. CALL LIGHT IN REACH.
--- NOTE | 2022-09-09 23:04 | NUR ---
SPOKE WITH LAB ABOUT NEED FOR PLT TRANSFUSION. LAB STATES THERE WILL NOT BE ANY PLTS IN HOUSE TILL TOMORROW. WILL NOTIFY PHYSICIAN.
[2022-09-10] VITALS (27 sets, daily range): BP systolic 96–135; BP diastolic 63–84; PULSE 101–117; TEMP 98.4–99.3
--- NOTE | 2022-09-10 02:48 | NUR ---
BUCKS TRACTION INCREASED TO 10LBS AT THIS TIME. PATIENT TOLERATING PROCEDURE.
[2022-09-10 06:31] LABS: BASO % 0.5 % (0.0-2.0); EOS # 0.1 K/mm3 (0.0-0.7); EOS % 1.4 % (0.0-4.0); GRAN # 4.1 K/mm3 (1.4-6.5); GRAN % 69.2 % (42.2-75.2); LYMPH # 1.3 K/mm3 (1.2-3.4); LYMPH % 21.5 % (20.0-51.0); MEAN CELL VOLUME 100 fl (80.0-100.0); MEAN CORPUSCULAR HGB CONC 35 g/dl (33.0-37.0); MEAN PLATELET VOLUME 11.3 fl (7.4-10.4); MONO # 0.4 K/mm3 (0.1-0.6); MONO % 7.1 % (1.7-9.3); PLATELET COUNT 52 K/mm3 (130-400); RED BLOOD COUNT 2.28 M/mm3 (4.10-5.30); REDCELL DISTRIBUTION WIDTH-CV 15.8 % (11.5-14.5)
[2022-09-10 06:34] LABS: HEMATOCRIT 22.9 % (37.0-47.0); MEAN CORPUSCULAR HEMOGLOBIN 35 pg (27-31)
[2022-09-10 06:50] LABS: ALBUMIN 2.4 gm/dL (3.5-5.0); BILIRUBIN,TOTAL 1.8 mg/dL (0.2-1.2); CALCIUM 7.4 mg/dL (8.4-10.2); CREATININE, serum 0.69 mg/dL (0.57-1.11); POTASSIUM 3.9 mmol/L (3.5-4.5); TOTAL PROTEIN 5.4 gm/dL (6.2-8.1)
--- NOTE | 2022-09-10 08:42 | NUR ---
Bolt Machine Operator met with patient to discuss discharge planning. Patient lives in [place] (but closer to [place]) with her , Rohit (ph#[phone]) and sees Sylvie Valverde APRN at [facility] for primary care. Patient obtains medications from [facility] on [address]. Patient advised she has a concentrator from [facility] but mostly uses the oxygen at night. Patient advised she is normally independent with ADLS. Patient does not have DPOA-HC and is not interested in completing one at this time. Patient to have surgery and SW will follow up for discharge recommendations. Discharge Plan: Pending surgery and PT/OT recommendations
--- NOTE | 2022-09-10 11:02 | NUR ---
PT WAITING FOR PLATELET TRANSFUSION BEFORE SURGICAL INTERVENTION. ORTHO AWARE OF DELAY.
--- NOTE | 2022-09-10 17:45 | NUR ---
EXPLAINED TO PATIENT THE NEED TO CHANGE INTO SPECIALITY BED AND HAD EXTRA MEDICATION TO FACILITATE MOVE, PATIENT REFUSED SEVERAL TIMES. PATIENT WOULD NOT ALLOW US TO REPOSITION IN CURRENT BED EITHER. PATIENT ENCOURAGE TO REPOSITION IN BED TO IMPROVE TRACTION IN BED. PATIENT COMPLIED AND PULLED SELF IN BED WITHOUT PROBLEM.
[2022-09-10 18:10] LABS: BASO % 0.5 % (0.0-2.0); EOS # 0.1 K/mm3 (0.0-0.7); EOS % 2.3 % (0.0-4.0); GRAN # 4.2 K/mm3 (1.4-6.5); GRAN % 74.7 % (42.2-75.2); LYMPH # 0.9 K/mm3 (1.2-3.4); LYMPH % 16.6 % (20.0-51.0); MEAN CELL VOLUME 101 fl (80.0-100.0); MEAN CORPUSCULAR HGB CONC 34 g/dl (33.0-37.0); MEAN PLATELET VOLUME 10.6 fl (7.4-10.4); MONO # 0.3 K/mm3 (0.1-0.6); MONO % 5.7 % (1.7-9.3); PLATELET COUNT 86 K/mm3 (130-400); RED BLOOD COUNT 2.13 M/mm3 (4.10-5.30); REDCELL DISTRIBUTION WIDTH-CV 15.5 % (11.5-14.5)
[2022-09-10 18:11] LABS: HEMATOCRIT 21.6 % (37.0-47.0); HEMOGLOBIN 7.3 g/dl (12.5-16.0); MEAN CORPUSCULAR HEMOGLOBIN 34 pg (27-31)
--- NOTE | 2022-09-10 18:35 | NUR ---
IV removed and dressing applied. discharge instructions reviewed with patient and she verbalized understanding.
--- NOTE | 2022-09-10 21:19 | NUR ---
SHIFT REPORT FROM EMY MERAZ. PATIENT IN BED ON ROOM ENTRY. ALERT BUT CONFUSED ABOUT TIME. KEEPS THINKING ITS MORNING AND TRYING TO ORDER BREAKFAST. REORIENTED EASILY BUT NEEDS FREQUENT REMINDING. REQUESTED SOMETHING TO EAT AND WAS PROVIDED WITH A SANDWICH BOX WHICH SHE TOLERATED. CIWA SCORE 4 AND DOSED WITH ATIVAN PER SCALE. R LEG WITH OBVIOUS DEFORMITY AND 10 LBS OF BUCKS TRACTION IN PLACE. PAIN MEDS PER EMAR. DENIES ADDITIONAL NEED SAT THIS TIME. CALL LIGHT IN REACH.
[2022-09-11] VITALS (21 sets, daily range): BP systolic 107–147; BP diastolic 66–90; PULSE 91–113; TEMP 97.7–98.8
--- NOTE | 2022-09-11 01:39 | NUR ---
REPORT GIVEN TO JHONNY MERAZ TO TAKEOVER CARE OF PATIENT AT THIS TIME.
--- NOTE | 2022-09-11 08:38 | NUR ---
PT REMAINS IN AGUDELO TRACTOR PER ORDER, PATIENT IS ALERT AND ORIENTED TO PERSON, PLACE AND SITUATION.
--- NOTE | 2022-09-11 09:13 | NUR ---
PT ABLE TO ROLL TO RIGHT SIDE IN ORDER TO CHANGE PAD AND VISUALIZE COCCYX. BUTTOCKS IS PINK AND NO OPEN AREAS NOTED.
[2022-09-11 09:20] LABS: BASO % 0.3 % (0.0-2.0); EOS # 0.2 K/mm3 (0.0-0.7); EOS % 3.2 % (0.0-4.0); GRAN # 4.5 K/mm3 (1.4-6.5); GRAN % 75.4 % (42.2-75.2); LYMPH # 0.9 K/mm3 (1.2-3.4); LYMPH % 14.9 % (20.0-51.0); MEAN CELL VOLUME 100 fl (80.0-100.0); MEAN CORPUSCULAR HGB CONC 35 g/dl (33.0-37.0); MONO # 0.4 K/mm3 (0.1-0.6); MONO % 5.9 % (1.7-9.3); PLATELET COUNT 82 K/mm3 (130-400); RED BLOOD COUNT 2.05 M/mm3 (4.10-5.30); REDCELL DISTRIBUTION WIDTH-CV 14.6 % (11.5-14.5)
[2022-09-11 09:22] LABS: HEMATOCRIT 20.5 % (37.0-47.0); HEMOGLOBIN 7.1 g/dl (12.5-16.0); MEAN CORPUSCULAR HEMOGLOBIN 35 pg (27-31)
[2022-09-11 09:50] LABS: ALBUMIN 2.4 gm/dL (3.5-5.0); CALCIUM 7.6 mg/dL (8.4-10.2); CREATININE, serum 0.57 mg/dL (0.57-1.11); POTASSIUM 3.6 mmol/L (3.5-4.5); TOTAL PROTEIN 5.3 gm/dL (6.2-8.1)
--- NOTE | 2022-09-11 14:45 | NUR ---
Outdoor Adventure Guides met briefly with patient to review discharge plan. Patient to have surgery today. SW discussed referral to IPR as she may require post acute rehab prior to going home. Patient is agreeable to this. Patient also asks if she can get up, despite being educated by staff that she cannot get up at this time due to her fracture. SW contacted Marlen, IPR Director and gave referral.
--- NOTE | 2022-09-11 14:53 | NUR ---
One unit of PRBC's started at this time. Will remain at bedside for first 15 minutes.
--- NOTE | 2022-09-11 15:05 | NUR ---
First 15 minutes complete. Pt. tolerating blood transfusion. OR staff here. Pt. to OR at this time.
[2022-09-11 18:03] LABS: HEMATOCRIT 27.5 % (37.0-47.0); HEMOGLOBIN 9.4 g/dl (12.5-16.0); MEAN CELL VOLUME 95 fl (80.0-100.0); MEAN CORPUSCULAR HEMOGLOBIN 33 pg (27-31); MEAN CORPUSCULAR HGB CONC 34 g/dl (33.0-37.0); MEAN PLATELET VOLUME 10.8 fl (7.4-10.4); PLATELET COUNT 107 K/mm3 (130-400); RED BLOOD COUNT 2.89 M/mm3 (4.10-5.30); REDCELL DISTRIBUTION WIDTH-CV 17.2 % (11.5-14.5)
--- NOTE | 2022-09-11 19:45 | NUR ---
PT UNAVAILABLE, IN SURGERY
--- NOTE | 2022-09-11 22:03 | NUR ---
Patient arrived to the floor from PACU at 2044 with KT Christianson, head to toe assessment done, dressing to right hip clean, dry and intact, IV LR with 150 credit infusing well to her left wrist, denies pain at this time, call light and personal items within reach, will continue to monitor.
[2022-09-12] VITALS (12 sets, daily range): BP systolic 96–120; BP diastolic 59–75; PULSE 93–112; TEMP 97.4–98.9
--- NOTE | 2022-09-12 01:17 | NUR ---
Repositioned patient to her left side.
--- NOTE | 2022-09-12 02:28 | NUR ---
Called Gena, the PA d/t patient only had an output of 100ml since 2044. Received an order to increase the NS at 125cc/hr, will continue to monitor.
--- NOTE | 2022-09-12 04:48 | NUR ---
Called Gena the PA, d/t patient's output is only 25ml. Bladder scanned the patient and it was 0 ml. Gena noted it and said continue to monitor, no new orders received at this time.
[2022-09-12 06:32] LABS: MEAN CELL VOLUME 95 fl (80.0-100.0); MEAN CORPUSCULAR HGB CONC 35 g/dl (33.0-37.0); MEAN PLATELET VOLUME 11.5 fl (7.4-10.4); PLATELET COUNT 86 K/mm3 (130-400); RED BLOOD COUNT 2.55 M/mm3 (4.10-5.30); REDCELL DISTRIBUTION WIDTH-CV 18.8 % (11.5-14.5)
[2022-09-12 06:43] LABS: HEMATOCRIT 24.2 % (37.0-47.0); HEMOGLOBIN 8.5 g/dl (12.5-16.0); MEAN CORPUSCULAR HEMOGLOBIN 33 pg (27-31)
[2022-09-12 06:46] LABS: CREATININE, serum 0.56 mg/dL (0.57-1.11); POTASSIUM 4.2 mmol/L (3.5-4.5)
--- NOTE | 2022-09-12 08:00 | NUR ---
PATIENT SITTING UP IN BED WITH TWO FULL BREAKFAST TRAYS. PATIENT HAS GOOD APPETITE. ORIENTED X2 BUT DISPLAYS SOME CONFUSION/FORGETFULNESS. PATIENT HAS EXTENSIVE ALCOHOL ABUSE HX AND IS ON THE DETOX PROTOCOL. NOTED TREMORS, TACHY IN THE LOW 100'S AND REQUIRING 1-2L PER NC TO KEEP SATS ABOVE 92%. PATIENT IS FREQUENTLY DROWSY. NICOTINE PATCH APPLIED AND AM MEDS GIVEN. RIGHT HIP DSG IS CD&I WITH GAUZE & TEGADERM. TEDS & SCD'S TO BLE. POSITIVE PEDAL PULSES TO BLE. IV FLUIDS INFUSING VIA PUMP INTO LEFT WRIST IV. OTHER LEFT WRIST IV AND RIGHT FORARM IV TO INT'S. HERNANDEZ TO DD WITH SMALL AMOUNTS OF YELLOW URINE NOTED. MONITORING DECREASED URINE OUTPUT REPORTED BY POCKET STITCHER NURSE. HEAD TO TOE ASSESSMENT COMPLETE. CALL LIGHT IN REACH. BED ALARM ON.
--- NOTE | 2022-09-12 08:35 | NUR ---
AT BEDSIDE. PATIENT REPORTS TO ORTHO THAT SHE WAS ABLE TO GET UP AND TAKE STEPS WHICH IS NOT VERY ACCURATE, SEE PT NOTES. PATIENT DID NOT FOLLOW VERABL QUES, SCREAMING, LEANED BACK NEARLY FALLING, GRABBING AT NEAR BY OBJECTS AND ALMOST PULLED BOTH OF HER LEFT HAND IV'S OUT, PT CALLED FOR NURSING STAFF ASSISTANCE, 2 MAX ASSIST TO STANDING POSITION HOWEVER PATIENT WOULDN'T WBAT TO RLE AND DID NOT TAKE STEPS. PATIENT BACK IN BED. IV SITES CLEANED UP, FLUSHED AND NEW DSGS APPLIED WITH COBAN TO PROTECT THEM. IV FLUIDS INFUSING INTO LEFT WRIST. PT WILL COME BACK LATER AND TRY AGAIN. ORTHO STRESSED THE IMPORTANCE OF GETTING UP AND STARTING THE REHAB PROCESS. PATIENT VERBALIZED UNDERSTANDING.
[2022-09-12 09:38] LABS: ALBUMIN 2.2 gm/dL (3.5-5.0); BILIRUBIN,TOTAL 1.8 mg/dL (0.2-1.2); TOTAL PROTEIN 5.1 gm/dL (6.2-8.1)
[2022-09-12 09:57] LABS: BASO % 0.2 % (0.0-2.0); GRAN # 4.9 K/mm3 (1.4-6.5); GRAN % 85.9 % (42.2-75.2); LYMPH # 0.4 K/mm3 (1.2-3.4); LYMPH % 6.8 % (20.0-51.0); MONO # 0.4 K/mm3 (0.1-0.6); MONO % 6.6 % (1.7-9.3)
--- NOTE | 2022-09-12 12:40 | NUR ---
PATIENT C/O PAIN AND REQUESTING PAIN MEDS. GAVE PRN ROXICODONE, TWO TABS AND SCHEDULED TORADOL IV. LOWERED HEAD OF BEDSIDE CHAIR AND PUT PILLOWS TO COMFORT. PATIENT RESTING WITH AT BEDSIDE. CALL LIGHT IN REACH.
--- NOTE | 2022-09-12 13:06 | NUR ---
Administrative Services Coordinator rounds: 1st attempt, Patient was sleeping in recliner. 2nd attempt, Administrative Services Coordinator noticed that Patient was awake and upright in recliner while passing by room. Offered bessemer converter blower visit. Patient declined.
--- NOTE | 2022-09-12 20:00 | NUR ---
Patient sitting up in bed, on room air, with IV infusing well to left wrist, dressing to right LE clean, dry and intact, rates pain which she rated it as 7/10, toradol given, still with moreau catheter draining minimal urine output, call light and personal items within reach, will continue to monitor.
[2022-09-13] VITALS (20 sets, daily range): BP systolic 97–142; BP diastolic 57–88; PULSE 94–110; TEMP 97.6–99.1
--- NOTE | 2022-09-13 00:12 | NUR ---
Repositioned patient to her left side.
--- NOTE | 2022-09-13 01:44 | NUR ---
PT REFUSED NEB
--- NOTE | 2022-09-13 03:56 | NUR ---
Repositioned patient on her back at this time, reports pain at 6/10, tylenol given.
--- NOTE | 2022-09-13 06:13 | NUR ---
Patient slept most of the night, denies need at this time, had 450ml urine output the entire shift, will report off to dayshift nurse.
[2022-09-13 06:21] LABS: BASO % 0.6 % (0.0-2.0); EOS # 0.1 K/mm3 (0.0-0.7); EOS % 2.5 % (0.0-4.0); GRAN # 2.2 K/mm3 (1.4-6.5); GRAN % 62.4 % (42.2-75.2); LYMPH # 0.8 K/mm3 (1.2-3.4); LYMPH % 21.2 % (20.0-51.0); MEAN CELL VOLUME 95 fl (80.0-100.0); MEAN CORPUSCULAR HGB CONC 34 g/dl (33.0-37.0); MEAN PLATELET VOLUME 11.2 fl (7.4-10.4); MONO # 0.5 K/mm3 (0.1-0.6); PLATELET COUNT 90 K/mm3 (130-400); RED BLOOD COUNT 2.06 M/mm3 (4.10-5.30); REDCELL DISTRIBUTION WIDTH-CV 18.7 % (11.5-14.5)
[2022-09-13 06:28] LABS: CALCIUM 6.8 mg/dL (8.4-10.2); CREATININE, serum 0.64 mg/dL (0.57-1.11); POTASSIUM 3.6 mmol/L (3.5-4.5)
[2022-09-13 06:30] LABS: HEMATOCRIT 19.6 % (37.0-47.0); MEAN CORPUSCULAR HEMOGLOBIN 33 pg (27-31)
[2022-09-13 06:31] LABS: HEMOGLOBIN 6.7 g/dl (12.5-16.0)
--- NOTE | 2022-09-13 06:34 | NUR ---
Called Dr. Marie for a critical hemoglobin result and he ordered to transfuse one unit of blood.
--- NOTE | 2022-09-13 08:00 | NUR ---
PATIENT IS A&O. NOTED ELEVATED HR 100-112 WITH ALL OTHER VSS. PATIENT HAS HX OF ALCOHOL ABUSE BUT IS NOW SCORING LOW ON PROTOCOL. REQUESTING PAIN MEDS BEFORE AM THERAPY, GIVEN WITH AM MEDS, SEE MAR. NO C/O N/V. BREAKFAST TRAY AT BEDSIDE. IV'S TO INT. HERNANDEZ TO DD WITH SMALL AMOUNTS OF DARK IRMA URINE. HEAD TO TOE ASSESSMENT COMPLETE. NO OTHER NEEDS AT THIS TIME. CALL LIGHT IN REACH.
--- NOTE | 2022-09-13 09:05 | NUR ---
STARTING BLOOD TRANSFUSION PER ORDERS. VSS. PATIENT TOLERATING WELL. WILL MONITOR.
--- NOTE | 2022-09-13 09:20 | NUR ---
ORTHO AT BEDSIDE MAKING ROUNDS. PATIENT SITTING UP IN BEDSIDE CHAIR WITH BREAKFAST. PAIN WELL MANAGED AT REST AFTER RECEIVING PAIN MEDS THIS AM.
--- NOTE | 2022-09-13 12:00 | NUR ---
BLOOD TRANSFUSION COMPLETE. PATIENT TOLERATED WELL. VSS. NO NEEDS.
[2022-09-13 19:13] LABS: HEMATOCRIT 25.7 % (37.0-47.0); HEMOGLOBIN 8.9 g/dl (12.5-16.0)
--- NOTE | 2022-09-13 20:52 | NUR ---
PT IN BED. IS ALERT AND ORIENTED X4. REPORTS PAIN TO RT HIP 04/01. HAS 3 OCCLUSIVE DRSG'S TO RT HIP WITH GAUZE BENEATH, D/I. PLACED ICE PACK ON AT THIS TIME. HERNANDEZ TO BSD WITH IRMA URINE, ENCOURAGED FLUID INTAKE. MEDICATED WITH HS MEDS INCLUDING OXYCODONE 10MG PO. MILD TREMORS OF HANDS NOTED. INT TO RT WRIST, LT WRIST AND LFA INTACT. IS ON SPECIALTY BED.
[2022-09-14] VITALS (7 sets, daily range): BP systolic 129–148; BP diastolic 78–85; PULSE 94–102; TEMP 98–98.5
--- NOTE | 2022-09-14 00:30 | NUR ---
PT REFUSED NEB
--- NOTE | 2022-09-14 02:05 | NUR ---
PT ATTEMPTS TO USE BEDPAN FOR BM, ONLY PASSES GAS. MEDICATED WITH OXYCODONE 10MG PO FOR RT HIP PAIN. REPLACED ICE PACK AT THIS TIME.
--- NOTE | 2022-09-14 06:00 | NUR ---
PT HAS GOOD URINE OUTPUT THIS SHIFT, EMPTIED 950CC YELLOW URINE FROM HERNANDEZ. IS ALERT AND ORIENTED X4. TREMORS TO HANDS MILD.
[2022-09-14 07:01] LABS: BASO % 0.5 % (0.0-2.0); EOS # 0.1 K/mm3 (0.0-0.7); EOS % 2.6 % (0.0-4.0); GRAN # 2.4 K/mm3 (1.4-6.5); GRAN % 62.7 % (42.2-75.2); LYMPH # 0.6 K/mm3 (1.2-3.4); LYMPH % 15.8 % (20.0-51.0); MEAN CELL VOLUME 97 fl (80.0-100.0); MEAN CORPUSCULAR HGB CONC 33 g/dl (33.0-37.0); MEAN PLATELET VOLUME 10.7 fl (7.4-10.4); MONO # 0.7 K/mm3 (0.1-0.6); MONO % 17.9 % (1.7-9.3); PLATELET COUNT 101 K/mm3 (130-400); RED BLOOD COUNT 2.76 M/mm3 (4.10-5.30); REDCELL DISTRIBUTION WIDTH-CV 18.7 % (11.5-14.5)
[2022-09-14 07:04] LABS: HEMATOCRIT 26.8 % (37.0-47.0); HEMOGLOBIN 8.8 g/dl (12.5-16.0); MEAN CORPUSCULAR HEMOGLOBIN 32 pg (27-31)
--- NOTE | 2022-09-14 07:08 | NUR ---
Received shift report from KT Escalante
[2022-09-14 07:22] LABS: CALCIUM 8.1 mg/dL (8.4-10.2); CREATININE, serum 0.56 mg/dL (0.57-1.11); POTASSIUM 4.1 mmol/L (3.5-4.5)
--- NOTE | 2022-09-14 08:15 | NUR ---
Patient resting in bed alert and oriented. Patient states she's a little bit worn out from using the bathroom. Dressing to right thigh dry and intact. ice pack applied to the area. Pulses presents. Keith draining clear yellow urine in the bag. Patient c/o pain at right hip with pain level 7/10. Roxicodone administed . Will continue to assess pain level. Call within reach.
--- NOTE | 2022-09-14 08:50 | NUR ---
Patient c/o feeling nauseous after eating breakfast and requests zofran for nausea. Medication administered via IV and patient tolerate it well.
--- NOTE | 2022-09-14 09:37 | NUR ---
Marlen, IPR Director, reports that she is submitting for auth to the patient's insurance.
--- NOTE | 2022-09-14 12:02 | NUR ---
Patient reports of pain at right hip due to physical therapy this am. Patient rated pain level 8/10. Roxicodone administered at 1203. Patient is sitting up in a recliner next to bed. Call metz within reach.
--- NOTE | 2022-09-14 20:10 | NUR ---
Patient A/O, head to toe assessment done, see shift assessment, rated her pain at 7/10, oxycodone given, denies further needs, call light and personal items within reach, will continue to monitor.
[2022-09-15 00:01] VITALS: BP 141/88; BP 172/77; PULSE 101; PULSE 87; TEMP 98.3; TEMP 98.7
[2022-09-15 04:12] VITALS: BP 136/87; PULSE 102; TEMP 98.3
[2022-09-15 06:54] LABS: BASO % 0.5 % (0.0-2.0); EOS # 0.1 K/mm3 (0.0-0.7); EOS % 2.9 % (0.0-4.0); GRAN # 2.6 K/mm3 (1.4-6.5); GRAN % 62.9 % (42.2-75.2); LYMPH # 0.6 K/mm3 (1.2-3.4); LYMPH % 14.4 % (20.0-51.0); MEAN CELL VOLUME 96 fl (80.0-100.0); MEAN CORPUSCULAR HGB CONC 34 g/dl (33.0-37.0); MEAN PLATELET VOLUME 11.6 fl (7.4-10.4); MONO # 0.8 K/mm3 (0.1-0.6); MONO % 18.8 % (1.7-9.3); PLATELET COUNT 129 K/mm3 (130-400); RED BLOOD COUNT 2.87 M/mm3 (4.10-5.30); REDCELL DISTRIBUTION WIDTH-CV 18.6 % (11.5-14.5)
[2022-09-15 06:59] LABS: CALCIUM 8.6 mg/dL (8.4-10.2); CREATININE, serum 0.56 mg/dL (0.57-1.11); POTASSIUM 4.3 mmol/L (3.5-4.5)
[2022-09-15 07:03] LABS: HEMATOCRIT 27.5 % (37.0-47.0); HEMOGLOBIN 9.3 g/dl (12.5-16.0); MEAN CORPUSCULAR HEMOGLOBIN 32 pg (27-31)
--- NOTE | 2022-09-15 07:19 | NUR ---
Shift report received from the night nurse, KT Padilla.
[2022-09-15 08:47] VITALS: BP 157/85; PULSE 97; TEMP 99.1
--- NOTE | 2022-09-15 10:21 | NUR ---
Patient sitting up in a recliner next to bed, alert and oriented. Patient c/o n/v and request for zofran and pain medication. Right hip dressing dry and intact. Medication administered and will continue to monitor patient.
[2022-09-15 12:00] VITALS: BP 139/89; PULSE 102; TEMP 98.9
--- NOTE | 2022-09-15 16:20 | NUR ---
Patient c/o pain at rigt hip with pain level 7/10. Roxicodone administered at 1614.
[2022-09-15 16:56] VITALS: BP 147/87; PULSE 106; TEMP 98.5
[2022-09-15 19:42] VITALS: BP 135/784; BP 135/84; PULSE 102; TEMP 98.3
--- NOTE | 2022-09-15 20:50 | NUR ---
Patient A/O, doing a lot better, head to toe assessment done, see shift assessment, rated her pain at 6/10, oxycodone given, dressing to the right upper hip came off and applied a new one with 4x4 gauze, tegaderm and tape, has been getting up to the bathroom with 1 person assist with walker, denies further needs, call light and personal items within reach, will continue to monitor.
[2022-09-16 00:12] VITALS: BP 122/81; PULSE 97; TEMP 98.3
[2022-09-16 03:55] VITALS: BP 128/86; PULSE 97; TEMP 98.3
--- NOTE | 2022-09-16 06:26 | NUR ---
Patient resting in bed, denies need at this time, will report off to dayshift nurse.
[2022-09-16 07:08] LABS: MEAN CELL VOLUME 96 fl (80.0-100.0); MEAN CORPUSCULAR HGB CONC 34 g/dl (33.0-37.0); MEAN PLATELET VOLUME 11.6 fl (7.4-10.4); PLATELET COUNT 145 K/mm3 (130-400); RED BLOOD COUNT 2.64 M/mm3 (4.10-5.30); REDCELL DISTRIBUTION WIDTH-CV 18.2 % (11.5-14.5)
[2022-09-16 07:16] LABS: HEMATOCRIT 25.3 % (37.0-47.0); HEMOGLOBIN 8.6 g/dl (12.5-16.0); MEAN CORPUSCULAR HEMOGLOBIN 33 pg (27-31)
[2022-09-16 07:23] LABS: CALCIUM 9.6 mg/dL (8.4-10.2); CREATININE, serum 0.59 mg/dL (0.57-1.11); POTASSIUM 4.6 mmol/L (3.5-4.5)
--- NOTE | 2022-09-16 08:00 | NUR ---
PATIENT IS A&O AND OUT WALKING IN HALLS WITH PT. VSS. NOTED SLIGHTLY TACHY HR IN UPPER 90'S TO LOW 100'S. REQUESTING PAIN MEDS AFTER WALK, GIVEN. AM MEDS GIVEN. HEAD TO TOE ASSESSMENT COMPLETE. PATIENT MAY DISCHARGE TO [facility] LAT[facility] TODAY.
[2022-09-16 08:35] VITALS: BP 132/78; PULSE 96; TEMP 98.3
[2022-09-16 08:42] LABS: ANISOCYTOSIS 2+; BAND 4 % (0-10); EOSINOPHIL 3 % (0-4); LYMPHOCYTE 17 % (20.0-51.0); NEUTROPHILS 53 % (42.0-75.2); PLATELET ESTIMATE DECREASED (NORMAL); POLYCHROMASIA 1+
--- NOTE | 2022-09-16 11:24 | NUR ---
Marlen, IPR Director, reports that they received auth from insurance and are able to take the patient today. The patient is to discharge today, 09/16, to [facility]. No additional needs at this time.
[2022-09-16 12:00] VITALS: BP 129/88; PULSE 94; TEMP 98.5
[2022-09-16] MEDS ORDERED: FERRO-TIME325 MG PO (12:34)
[2022-09-16] MEDS ORDERED: ASPIRIN 81M81 MG/TA2 PO (12:35)
[2022-09-16] MEDS ORDERED: TYLENOL 500MG500 MG PO (12:36)
[2022-09-16] MEDS ORDERED: OS-CAL 500 + D1 TAB PO (12:38)
--- NOTE | 2022-09-16 13:52 | NUR ---
PATIENT IS DISCHARGING TO [facility]. GAVE REPORT TO IPR NURSE. DC'D LEFT WRIST IV AND COVERED SITE WITH GAUZE & COBAN. PATIENT GIVEN PRN ROXICODONE BEFORE TRANSFER PER REQUEST. PATIENT'S PERSONAL BELONGINGS PACKED AND PATIENT MOVED OVER TO [facility].
[2022-09-16] MEDS ORDERED: ZYRTEC 10MG10 MG PO (15:21)
[2022-09-25] MEDS ORDERED: FERRO-TIME325 MG PO (09:10)
[2022-09-25] MEDS ORDERED: ASPIRIN 81M81 MG/TA2 PO (09:10)
[2022-09-25] MEDS ORDERED: ROXICODONE 55 MG/TAB PO (09:13)
== END 2022-09-16 14:02 | DRG 482 ==
LOC: COL.ER 10:26 → SURG 13:42
PROVIDERS: Family Medicine; Internal Medicine; Nurse Anesthetist, Certified Registered; Orthopaedic Surgery; Orthopaedic Surgery Sports Medicine; Physician Assistant; ADMIT Internal Medicine
PROC: 30233N1 Transfusion of Nonautologous Red Blood Cells into Peripheral Vein, Percutaneous Approach (ICD-10-PCS; 2022-09-10)
PROC: 30233R1 Transfusion of Nonautologous Platelets into Peripheral Vein, Percutaneous Approach (ICD-10-PCS; 2022-09-11)
PROC: 0QS606Z Reposition Right Upper Femur with Intramedullary Internal Fixation Device, Open Approach (ICD-10-PCS; principal; 2022-09-11 14:30)
DX: S72.21XA Displaced subtrochanteric fracture of right femur, initial encounter for closed fracture (principal); J44.9 Chronic obstructive pulmonary disease, unspecified; K21.9 Gastro-esophageal reflux disease without esophagitis; K27.9 Peptic ulcer, site unspecified, unspecified as acute or chronic, without hemorrhage or perforation; D69.6 Thrombocytopenia, unspecified; D53.9 Nutritional anemia, unspecified; F10.129 Alcohol abuse with intoxication, unspecified; Y90.7 Blood alcohol level of 200-239 mg/100 ml; S50.12XA Contusion of left forearm, initial encounter; E83.51 Hypocalcemia; L29.9 Pruritus, unspecified; F17.210 Nicotine dependence, cigarettes, uncomplicated; W10.9XXA Fall (on) (from) unspecified stairs and steps, initial encounter; Y92.009 Unspecified place in unspecified non-institutional (private) residence as the place of occurrence of the external cause; Z85.41 Personal history of malignant neoplasm of cervix uteri; Z90.710 Acquired absence of both cervix and uterus; Z88.0 Allergy status to penicillin; Z88.1 Allergy status to other antibiotic agents
CPT/HCPCS: 86644; A9284; C1713; J0690; J1100; J1170; J1885; J2060; J2270; J2405; J2704; J3010; J3475; J7030; P9016; P9035

== ENCOUNTER 2023-10-15 11:10 | Emergency (ER) | payer SELFPAY ==
[~2023-10-15] VITALS: Ht 175.3 cm; Wt 54.5 kg
[2023-10-15 11:10] VITALS: TEMP 97.1
[~2023-10-15 11:10] MED LIST changes: +ASPIRIN 81M81 MG/TA2 PO; +CARAFATE 1GM1 G PO; +FERRO-TIME325 MG PO; +OMNICEF 300MG300 MG PO; +OS-CAL 500 + D1 TAB PO; +ROXICODONE 55 MG/TAB PO; +TYLENOL 500MG500 MG PO
[2023-10-15] MEDS ORDERED: Acetaminophen 500 MG TAB PO ONE (11:45)
[2023-10-15] MEDS ORDERED: fentaNYL 50 MCG/ML 2 ML VIAL IV ONE (11:45)
[2023-10-15 13:08] LABS: HEMOGLOBIN 11.4 g/dl (12.5-16.0); MEAN CELL VOLUME 105 fl (80.0-100.0); MEAN CORPUSCULAR HEMOGLOBIN 35 pg (27-31); MEAN CORPUSCULAR HGB CONC 34 g/dl (33.0-37.0); MEAN PLATELET VOLUME 10.7 fl (7.4-10.4); PLATELET COUNT 123 K/mm3 (130-400); RED BLOOD COUNT 3.23 M/mm3 (4.10-5.30); REDCELL DISTRIBUTION WIDTH-CV 13.7 % (11.5-14.5)
[2023-10-15 13:12] LABS: HEMATOCRIT 33.9 % (37.0-47.0)
[2023-10-15 13:21] LABS: CALCIUM 10.2 mg/dL (8.4-10.2); CREATININE, serum 0.65 mg/dL (0.57-1.11); POTASSIUM 3.2 mmol/L (3.5-4.5)
[2023-10-15 16:00] VITALS: BP 137/92; PULSE 79
== END 2023-10-15 16:00 | disposition home or self-care (01) ==
LOC: COL.ER 11:10
PROVIDERS: Emergency Medicine
DX: S00.03XA Contusion of scalp, initial encounter (principal); M25.551 Pain in right hip; E87.6 Hypokalemia; F10.129 Alcohol abuse with intoxication, unspecified; W18.30XA Fall on same level, unspecified, initial encounter; Y90.8 Blood alcohol level of 240 mg/100 ml or more
CPT/HCPCS: J3010

== ENCOUNTER 2023-11-26 03:18 | Inpatient (IN) | payer OTHER ==
[~2023-11-26] VITALS: Ht 160 cm; Wt 59.1 kg
[2023-11-26] VITALS (17 sets, daily range): BP systolic 106–153; BP diastolic 58–85; PULSE 98–120; TEMP 97.9–98.3
[2023-11-26] MEDS ORDERED: fentaNYL 50 MCG/ML 2 ML VIAL IV ONE ×3 (03:45→06:00)
[2023-11-26 04:18] LABS: COLLECTION METHOD CATHETER
[2023-11-26 04:26] LABS: URINE APPEARANCE CLEAR (CLEAR/HAZY); URINE BLOOD NEGATIVE (NEGATIVE); URINE COLOR YELLOW (YELLOW); URINE GLUCOSE NEGATIVE (NEGATIVE); URINE KETONE 1+ (NEGATIVE); URINE NITRATE NEGATIVE (NEGATIVE); URINE PROTEIN(semi-quant) 1+ (NEGATIVE)
[2023-11-26 04:40] LABS: URINE BACTERIA RARE /hpf (NONE SEEN); URINE RBC 0-2 /hpf (0-2); URINE WBC 0-2 /hpf (0-2)
[2023-11-26 04:46] LABS: TRICYCLIC ANTIDEPRESS URINE NEGATIVE (NEGATIVE)
[2023-11-26 05:02] LABS: INR 1.1 (0.8-3.0); PROTHROMBIN TIME 11.5 SECONDS (9.7-12.8)
[2023-11-26 05:21] LABS: ALBUMIN 4.2 g/dL (3.4-4.8); BILIRUBIN,TOTAL 0.8 mg/dL (0.2-1.2); CALCIUM 9.4 mg/dL (8.4-10.2); CREATININE, serum 0.8 mg/dL (0.57-1.11); POTASSIUM 4.6 mEq/L (3.5-4.5); TOTAL PROTEIN 8.1 g/dl (6.2-8.1)
[2023-11-26 05:39] LABS: BASO # 0.1 K/mm3 (0.0-0.2); EOS # 0.1 K/mm3 (0.0-0.7); EOS % 1.9 % (0.0-4.0); GRAN # 3.5 K/mm3 (1.4-6.5); GRAN % 66.3 % (42.2-75.2); HEMATOCRIT 40.8 % (37.0-47.0); HEMOGLOBIN 13.9 g/dl (12.5-16.0); LYMPH # 1.4 K/mm3 (1.2-3.4); LYMPH % 27.7 % (20.0-51.0); MEAN CELL VOLUME 105 fl (80.0-100.0); MEAN CORPUSCULAR HEMOGLOBIN 36 pg (27-31); MEAN CORPUSCULAR HGB CONC 34 g/dl (33.0-37.0); MEAN PLATELET VOLUME 11.5 fl (7.4-10.4); MONO # 0.1 K/mm3 (0.1-0.6); MONO % 2.7 % (1.7-9.3); RED BLOOD COUNT 3.87 M/mm3 (4.10-5.30); REDCELL DISTRIBUTION WIDTH-CV 13.9 % (11.5-14.5)
[2023-11-26 05:40] LABS: PLATELET COUNT 58 K/mm3 (130-400)
[2023-11-26] MEDS ORDERED: LR 500 ML IV ONE (06:15)
[2023-11-26] MEDS ORDERED: HYDROmorphone 0.5 MG/0.5 ML SYRINGE IV ONE (07:00)
[2023-11-26] MEDS ORDERED: Morphine 4 MG/ML VIAL IV ONE (08:45)
[2023-11-26] MEDS ORDERED: Nicotine 14 MG DAILY PATCH TD SCH (09:00)
[2023-11-26] MEDS ORDERED: Naloxone 0.4 MG/ML VIAL IV PRN ×2 (09:00→14:15)
[2023-11-26] MEDS ORDERED: LORazepam 2 MG/ML 1 ML VIAL IV PRN (09:00)
[2023-11-26] MEDS ORDERED: Ondansetron 4 MG/2 ML VIAL IV PRN ×3 (09:00→15:00)
[2023-11-26] MEDS ORDERED: Morphine 4 MG/ML VIAL IV PRN (09:00)
[2023-11-26] MEDS ORDERED: Albuterol 0.083% Neb Soln 2.5 MG/3 ML UD IH PRN (09:30)
--- NOTE | 2023-11-26 09:47 | NUR ---
Initial visit; Patient in a great deal of pain and had the attention of several nurses who were trying to secure pain medicine for her through her Physician. Irina thanked for talking briefly with her and assuring her she is in Sponge Packer's prayers along with the availability of Spiritual Care at our hospital. She thanked Sponge Packer for coming in to see her.
--- NOTE | 2023-11-26 10:46 | NUR ---
PERFECTO Student identified self as SW Student and completed intake with patient at bedside. Patient stated that she technically lives in [place], [place] but is closer to [place] than [place]. Patient lives with her Rohit (ph#[phone]). Patient sees Sylvie Valverde APRN for primary care and obtains medications from [facility]. Patient stated that she is independent with ADLs and utilizes a FWW with a tray and a Cane as needed. Patient stated that her usually transports her to appointments. Patient stated that she utilizes 2L of oxygen at night. SW Student discussed possible PT/OT recommendations after surgery such as SNF, IPR, HH. Patient stated that she is familiar with IPR and would be interested with going to IPR. Patient stated that she would like to talk with IPR staff but not until after surgery as she is wanting to rest. SW Student informed Tamy with IPR of referral. Discharge Plan:IPR Review
[2023-11-26] MEDS ORDERED: LR 1,000 ML IV SCH (12:00)
[2023-11-26] MEDS ORDERED: Ondansetron 4 MG/2 ML VIAL ONE (13:17)
[2023-11-26] MEDS ORDERED: dexAMETHasone 10 MG/ML VIAL ONE (13:17)
[2023-11-26] MEDS ORDERED: Midazolam 2 MG/2 ML VIAL ONE (13:17)
[2023-11-26] MEDS ORDERED: fentaNYL 50 MCG/ML 2 ML VIAL ONE (13:18)
--- NOTE | 2023-11-26 13:41 | NUR ---
PT TO SURGERY PER BED WITH SHA AT THIS TIME.
[2023-11-26] MEDS ORDERED: HYDROmorphone 0.5 MG/0.5 ML SYRINGE IV PRN (14:15)
[2023-11-26] MEDS ORDERED: oxyCODONE 5 MG TAB PO PRN ×2 (14:15)
[2023-11-26] MEDS ORDERED: NS 1,000 ML IV SCH (14:15)
[2023-11-26] MEDS ORDERED: Magnes Hydrox (MOM) 80 MG/ML 30 ML CUP PO PRN (14:15)
[2023-11-26] MEDS ORDERED: ePHEDrine 50 MG/ML VIAL ONE (14:32)
[2023-11-26] MEDS ORDERED: hydrALAZINE 20 MG/ML 1 ML VIAL IV PRN (15:00)
[2023-11-26] MEDS ORDERED: fentaNYL 50 MCG/ML 2 ML VIAL IV PRN (15:00)
[2023-11-26] MEDS ORDERED: Meperidine 50 MG/ML 1 ML VIAL IV PRN (15:00)
[2023-11-26] MEDS ORDERED: Tranexamic Acid 1,000 MG/10 ML VIAL ONE (15:08)
[2023-11-26] MEDS ORDERED: Levalbuterol Neb Soln 1.25 MG/3 ML UD IH SCH (15:45)
[2023-11-26] MEDS ORDERED: HYDROmorphone 2 MG/1 ML VIAL IV PRN (16:15)
--- NOTE | 2023-11-26 16:43 | NUR ---
PT TO ROOM 342 PER BED WITH REPORT FROM HOMAR @[id number]. PT LUNGS COARSE ALL COLEMAN. DRESSING TO LEFT HIP CDI WITH 4X4 AND TEGADERM OVER INCISIONS. SCDS BILATERALLY. HERNANDEZ TO DD WITH IV TO LH.
--- NOTE | 2023-11-26 19:07 | NUR ---
BLOOD PRESSURE SLIGHTLY ELEVATED R/T PAIN, MEDICATED FOR PAIN, WILL REACESS IN 1 HOUR.
[2023-11-26] MEDS ORDERED: Sennosides/Docusate 8.6-50 MG TAB PO SCH (21:00)
[2023-11-26] MEDS ORDERED: ceFAZolin 1 G in Water For Injection,Sterile 10 ML IV SCH (23:00)
[2023-11-27] VITALS (18 sets, daily range): BP systolic 113–138; BP diastolic 69–91; PULSE 101–116; TEMP 98–98.5
--- NOTE | 2023-11-27 00:31 | NUR ---
PT ALERT AND ORIENTED. CIWA PROTOCOL, SCORING 8-9, ATIVAN GIVEN PER PROTOCOL AND IS HAVING LESS TREMORS AND AXIOUSNESS. POST OP VITALS COMPLETE. ASSESSED, PAIN RATED 7/10, ROXYCODONE ADMINITERED. INDWELLING HERNANDEZ CATHETER TO DEPENDNET DRAINAGE, CLEAR. IV PATENT, RESTING IN BED TOLERATING PO. CALL LIGHT WITHIN REACH, BED IN LOWEST POSITION. BED ALARM ENGAGED.
[2023-11-27 06:57] LABS: BASO % 0.2 % (0.0-2.0); GRAN # 4.8 K/mm3 (1.4-6.5); GRAN % 87.7 % (42.2-75.2); LYMPH # 0.5 K/mm3 (1.2-3.4); LYMPH % 8.8 % (20.0-51.0); MEAN CELL VOLUME 101 fl (80.0-100.0); MEAN CORPUSCULAR HGB CONC 36 g/dl (33.0-37.0); MONO # 0.2 K/mm3 (0.1-0.6); MONO % 3.1 % (1.7-9.3); PLATELET COUNT 88 K/mm3 (130-400); REDCELL DISTRIBUTION WIDTH-CV 12.9 % (11.5-14.5)
[2023-11-27 07:45] LABS: HEMATOCRIT 29.4 % (37.0-47.0); HEMOGLOBIN 10.6 g/dl (12.5-16.0); MEAN CORPUSCULAR HEMOGLOBIN 37 pg (27-31)
[2023-11-27] MEDS ORDERED: Multivitamin TAB PO SCH (08:00)
--- NOTE | 2023-11-27 08:01 | NUR ---
PT RESTING IN BED WITH PAIN 5/10 IN LEFT HIP, TREMORS, AGITATION, AND TACHYCARDIA. PRN PAIN MEDICATION AND ATIVAN PROVIDED PER CIWA PROTOCOL. HERNANDEZ TO DEPENDENT DRAINAGE. DRESSING TO LEFT HIP CLEAN AND DRY. PT REMAINS ON 2L NC AT THIS TIME AND EDUCATION PROVIDED ON USE OF IS. PLANS TO GET OUT OF BED WITH THERAPY TODAY. TOLERATING DEIT WELL. WILL CONTINUE TO MONITOR.
[2023-11-27 08:37] LABS: CALCIUM 8.9 mg/dL (8.4-10.2); CREATININE, serum 1.09 mg/dL (0.57-1.11); POTASSIUM 4.6 mEq/L (3.5-4.5)
[2023-11-27] MEDS ORDERED: Folic Acid 1 MG TAB PO SCH (09:00)
[2023-11-27] MEDS ORDERED: Thiamine 100 MG TAB PO SCH (09:00)
[2023-11-27] MEDS ORDERED: NS 1,000 ML IV SCH ×2 (09:45→12:15)
[2023-11-27] MEDS ORDERED: diphenhydrAMINE 25 MG CAP PO PRN (09:45)
[2023-11-27] MEDS ORDERED: Insulin Lispro (HumaLOG) SQ SCH (12:00)
[2023-11-27] MEDS ORDERED: predniSONE 20 MG TAB PO SCH (12:15)
--- NOTE | 2023-11-27 12:44 | NUR ---
Data: Patient accepted Men'S Swim Coach services offered during Men'S Swim Coach rounds. Assessment: Patient would like to visit with a Structural Iron Worker sometime early next week. Plan of Care: Men'S Swim Coach contacted [facility]. Left message for Structural Iron Worker. Men'S Swim Coach provided supportive listening and a rosary. Chaplains will remain available as needed/requested while Patient is admitted to this hospital.
[2023-11-27] MEDS ORDERED: Albuterol 0.083% Neb Soln 2.5 MG/3 ML UD IH SCH (14:00)
--- NOTE | 2023-11-27 19:21 | NUR ---
SHIFT ASSESSMENT COMPLETE. PATIENT RESTING IN BED, HAS SOME CONFUSION ON TIME OF DAY. ALL NIGHT MEDS GIVEN PER ORDERS. HERNANDEZ IN PLACE AND YELLOW CLEAR URINE DRAINING. INT TO LFT HAND CDI. PATIENT HAS NO COMPLAINTS OR REQUEST AT THIS TIME. FALL PRECAUTIONS IN PLACE AND CALL LIGHT IN REACH.
[2023-11-28] VITALS (18 sets, daily range): BP systolic 133–158; BP diastolic 81–96; PULSE 94–114; TEMP 97.9–98.5
--- NOTE | 2023-11-28 06:22 | NUR ---
PATIENT AWAKE OFF AND ON THROUGH THE NIGHT FORGETTING WHAT TIME IT WAS OFTEN, ONCE REMINDED IT WAS STILL NIGHT TIME PATIENT WAS ABLE TO GO BACK TO SLEEP. HERNANDEZ CATHETER IN PLACE URINE HAS SOME BLOOD DUE TO CATHETER GETTING PULLED WHEN PATIENT MOVING LEGS AROUND AND HAVING RESTLESSNESS. PATIENT REPORTS NO PAIN AT THIS TIME. FALL PRECAUTIONS IN PLACE AND MACARIO LIGHT IN REACH.
[2023-11-28 06:46] LABS: CALCIUM 8.7 mg/dL (8.4-10.2); CREATININE, serum 0.77 mg/dL (0.57-1.11); POTASSIUM 4.4 mEq/L (3.5-4.5)
[2023-11-28 07:19] LABS: BASO % 0.1 % (0.0-2.0); GRAN # 5.7 K/mm3 (1.4-6.5); GRAN % 81.3 % (42.2-75.2); HEMOGLOBIN 10.5 g/dl (12.5-16.0); LYMPH # 0.9 K/mm3 (1.2-3.4); LYMPH % 12.8 % (20.0-51.0); MEAN CELL VOLUME 102 fl (80.0-100.0); MEAN CORPUSCULAR HEMOGLOBIN 37 pg (27-31); MEAN CORPUSCULAR HGB CONC 36 g/dl (33.0-37.0); MEAN PLATELET VOLUME 11.9 fl (7.4-10.4); MONO # 0.4 K/mm3 (0.1-0.6); MONO % 5.2 % (1.7-9.3); PLATELET COUNT 53 K/mm3 (130-400); RED BLOOD COUNT 2.86 M/mm3 (4.10-5.30); REDCELL DISTRIBUTION WIDTH-CV 13.2 % (11.5-14.5)
[2023-11-28 07:20] LABS: HEMATOCRIT 29.2 % (37.0-47.0)
--- NOTE | 2023-11-28 09:38 | NUR ---
Patient alert and oriented x4. Mild anxiety noted this morning, patient denies nausea/headache. Scoring 2 on CIWA this am. Appetite adequate. Complains of pain to left hip, PRN Roxicodone administered. Left hip sites CDI. HR tachycardic, lung sounds have wheezes noted to bases. Patient encouraged to sit up with HOB elevated. New nicotine patch placed to left upper arm, old removed from right arm. Call light within reach, all needs met at this time.
--- NOTE | 2023-11-28 10:09 | NUR ---
Patient sitting in recliner and requested to move back to bed. Prior to assisting patient stated, "there is no dog sitting on those papers is there?" and pointed to counter. States she has hallucinated a dog off and on in her room. Patient is aware that dog is not real or present. Assisted x2 to bed with gaitbelt and walker. Patient slow, but overall moved well. Mild anxiety noted with activity. CIWA score 4.
[2023-11-28] MEDS ORDERED: Albuterol/Ipratropium 3 MG-0.5 MG/3 ML Neb Soln IH PRN (11:00)
[2023-11-28] MEDS ORDERED: Albuterol/Ipratropium 3 MG-0.5 MG/3 ML Neb Soln IH SCH (14:00)
--- NOTE | 2023-11-28 16:27 | NUR ---
Moreau discontinued per orders. 10ml of water removed from moreau balloon. Catheter removed with tip intact. Patient tolerated well. Denies issues with voiding since removal, has had adequate output in bedside commode.
--- NOTE | 2023-11-28 19:57 | NUR ---
Pt in bed, is alert and oriented x3. Has INT to LT hand, flushes well. HS meds given including PRN Oxycodone 5mg po for LT hip pain. Has drsg to Lt hip with old drainage noted. Ice pack in place to LT hip. Voiding well since moreau removed. TEDS/SCD's on BLE. Remains on detox protocol.
--- NOTE | 2023-11-28 23:00 | NUR ---
Ambulated pt with gait belt/walker and one assist to bathroom to void. Has slow steady gait. Assisted back to bed, does well. Oxygen at 2l/nc for night.
[2023-11-29] VITALS (17 sets, daily range): BP systolic 109–158; BP diastolic 65–94; PULSE 81–115; TEMP 97.9–98.7
--- NOTE | 2023-11-29 02:06 | NUR ---
PT UP TO BATHROOM WITH ONE ASSIST/GAIT BELT/WALKER, VOIDS AND BACK TO BED. MEDICATED WITH OXYCODONE 10MG PO FOR LT HIP PAIN.
--- NOTE | 2023-11-29 06:06 | NUR ---
HAS SCORED 4-6 FOR CIWA THIS SHIFT, NO ATIVAN REQUIRED.
[2023-11-29 06:22] LABS: BASO % 0.2 % (0.0-2.0); EOS # 0.1 K/mm3 (0.0-0.7); EOS % 0.8 % (0.0-4.0); GRAN # 4.6 K/mm3 (1.4-6.5); GRAN % 69.1 % (42.2-75.2); HEMOGLOBIN 11.9 g/dl (12.5-16.0); LYMPH # 1.5 K/mm3 (1.2-3.4); LYMPH % 23.2 % (20.0-51.0); MEAN CELL VOLUME 104 fl (80.0-100.0); MEAN CORPUSCULAR HEMOGLOBIN 37 pg (27-31); MEAN CORPUSCULAR HGB CONC 35 g/dl (33.0-37.0); MEAN PLATELET VOLUME 11.7 fl (7.4-10.4); MONO # 0.4 K/mm3 (0.1-0.6); MONO % 5.6 % (1.7-9.3); PLATELET COUNT 57 K/mm3 (130-400); RED BLOOD COUNT 3.25 M/mm3 (4.10-5.30); REDCELL DISTRIBUTION WIDTH-CV 13.6 % (11.5-14.5)
[2023-11-29 06:26] LABS: HEMATOCRIT 33.7 % (37.0-47.0)
[2023-11-29 06:31] LABS: CALCIUM 9.5 mg/dL (8.4-10.2); CREATININE, serum 0.71 mg/dL (0.57-1.11)
--- NOTE | 2023-11-29 08:00 | NUR ---
PATIENT IS ORIENTED BUT ALITTLE DROWSY THIS AM. 02 @ 2L PER NC WITH SATS IN MID TO UPPER 90'S. PATIENT REPORTS SHE WEARS 02 @ 2L PER NC AT HS AT HOME. NOTED ELEVATED HR OF 115, ALL OTHER VSS. MODERATE TREMMORS NOTED, CIWA PROTOCOL. PATIENT WAS REPORTED TO HAVE BEEN INTOXICATED AND FELL AT HOME. PATIENT LIVES WITH . LEFT HIP DSG IS CD&I WITH GAUZE. TEDS & SCD'S TO BLE. 1 ASSIST WITH WALKER. PT/OT CONSULTED. IPR SCREEN PENDING. HEAD TO TOE ASSESSMENT COMPLETE. NO C/O N/V. LEFT HAND IV TO INT. AM BS WAS 72 BUT THEN SHE ATE A FULL BREAKFAST. AM MEDS GIVEN. NO OTHER NEEDS AT THIS TIME. CALL LIGHT IN REACH. BED ALARM ON.
--- NOTE | 2023-11-29 15:06 | NUR ---
[employer] spoke with Marlen, IPR Director who advised they are submitting to patient's insurance for authorization.
--- NOTE | 2023-11-29 21:07 | NUR ---
PT IN BED. HS MEDS GIVEN INCLUDING OXYCODONE 10MG PO FOR LT HIP PAIN. HAS DRSG TO LT HIP D/I. ICE PACK REPLACED. ASSISTED TO BATHROOM WITH GAIT BELT/WALKER/ONE ASSIST, DOES WELL. BACK TO BED. INT TO LT HAND. SCDS ON. BED ALARM SET. CIWA SCORE 5.
--- NOTE | 2023-11-29 23:00 | NUR ---
DR OLLIE HE TO DC DETOX PROTOCOL, PT HAS NOT NEEDED ATIVAN FOR 48HRS.
[2023-11-30] VITALS (13 sets, daily range): BP systolic 118–161; BP diastolic 71–93; PULSE 92–104; TEMP 98–98.3
--- NOTE | 2023-11-30 03:35 | NUR ---
PT ASSISTED TO BATHROOM, VOIDS AND BACK TO BED. MEDICATED WITH OXYCODONE 10MG PO FOR LT HIP PAIN.
[2023-11-30 06:34] LABS: CALCIUM 8.8 mg/dL (8.4-10.2); CREATININE, serum 0.66 mg/dL (0.57-1.11)
--- NOTE | 2023-11-30 07:47 | NUR ---
pt is a&ox4 sitting up in bed watching tv. pt reports pain a 5/10 in her left hip, roxicodone is given for pain per emar. vss. teds and scds to ble. ice pack to left hip. incision is cdi. morning medications to be given by nursing service director. pt denies needs at this time. call light in reach. fall precautions in place.
[2023-11-30 08:34] LABS: BASO % 0.1 % (0.0-2.0); EOS # 0.1 K/mm3 (0.0-0.7); GRAN # 4.6 K/mm3 (1.4-6.5); LYMPH # 1.5 K/mm3 (1.2-3.4); LYMPH % 21.3 % (20.0-51.0); MEAN CELL VOLUME 102 fl (80.0-100.0); MEAN CORPUSCULAR HEMOGLOBIN 37 pg (27-31); MEAN CORPUSCULAR HGB CONC 36 g/dl (33.0-37.0); MEAN PLATELET VOLUME 11.3 fl (7.4-10.4); MONO # 0.6 K/mm3 (0.1-0.6); MONO % 9.3 % (1.7-9.3); PLATELET COUNT 77 K/mm3 (130-400); REDCELL DISTRIBUTION WIDTH-CV 13.7 % (11.5-14.5)
[2023-11-30 08:39] LABS: HEMATOCRIT 30.5 % (37.0-47.0)
--- NOTE | 2023-11-30 09:40 | NUR ---
PERFECTO notified by IPR Director Betsy that insurance denied authorization due to being out of network. PERFECTO met with patient to discuss other referral. Patient agreeable to referrals to be sent to [facility], [facility] and [facility].
--- NOTE | 2023-11-30 10:15 | NUR ---
PT UP AND SITTING IN CHAIR. OT ASSISTED WITH HYGIENE. LINENS CHANGED. PT DENIES PAIN. ALL OTHER NEEDS MET AT THIS TIME. CALL LIGHT IN REACH. CHAIR ALARM IN PLACE.
--- NOTE | 2023-11-30 12:36 | NUR ---
SW received calls from [facility] stating they are full and have a wait list for admissions and [facility] stating they are out of network for patient's insurance. Message left for [facility] regarding referral.
[2023-12-01] VITALS (11 sets, daily range): BP systolic 138–158; BP diastolic 84–96; PULSE 82–102; TEMP 97.8–98.6
--- NOTE | 2023-12-01 01:02 | NUR ---
NURSING SHIF ASSESSMENT COMPLETED. THE PATIENT IS ALERT AND ORIENTED. PAIN RATING LEFT HIP 5/10. THE PATIENT HAS PRN PAIN MEDICATION AVAILABLE. THE PLAN OF CARE AND EVENING MEDICATIONS REVIEWED. THE PATIENT DENIED NEEDS AT THIS TIME. BED IN LOW POSITION. CALL LIGHT AND PERSONAL BELONGINGS WITHIN REACH. BED ALARM ON.
--- NOTE | 2023-12-01 10:18 | NUR ---
PATIENT ALERT AND ORIENTED X4. VSS. PATIENT HERE FOR LEFT HIP FRACTURE. INCISION WITH GAUZE/TEGADERM CDI. PATIENT REPORTS PAIN 7/10, REQUESTS PAIN MEDICATION. NICOTINE PATCH TO LEFT UPPER ARM. PATIENT RESTING IN BED. CALL LIGHT IN REACH. BED ALARM ON.
--- NOTE | 2023-12-01 14:42 | NUR ---
Label Operator contacted Nelly at [facility] who advised they submitted for auth through patient's insurance and are awaiting a response.
--- NOTE | 2023-12-01 22:50 | NUR ---
NURSING SHIFT ASSESSMENT COMPLETED. THE PATIENT WAS ALERT AND ORIENTED. THE PATIENT WAS RATING HER LEFT HIP PAIN 5/10. PRN PAIN MEDICATION TO BE PROVIDED. THE PATIENT WAS PLEASANT AND WITHOUT OTHER NEEDS. THE PLAN OF CARE AND EVENING MEDICATIONS WERE REVIEWED. NO QUESTIONS OR CONCERNS. THE DRESSING TO THE PTS LEFT HIP IS DRY AND INTACT WITH SHADOWING NOTED UNDER THE DRESSING. CALL LIGHT AND PERSONAL BELONGINGS WITHIN REACH. THE BED ALARM IS ON AND THE BED IS IN THE LOW POSITION.
[2023-12-02] VITALS (7 sets, daily range): BP systolic 122–145; BP diastolic 72–87; PULSE 87–104; TEMP 98–99
[2023-12-02 06:43] LABS: BASO % 0.2 % (0.0-2.0); EOS # 0.1 K/mm3 (0.0-0.7); EOS % 1.2 % (0.0-4.0); GRAN # 3.6 K/mm3 (1.4-6.5); GRAN % 62.1 % (42.2-75.2); LYMPH # 1.2 K/mm3 (1.2-3.4); LYMPH % 19.9 % (20.0-51.0); MEAN CELL VOLUME 104 fl (80.0-100.0); MEAN CORPUSCULAR HEMOGLOBIN 36 pg (27-31); MEAN CORPUSCULAR HGB CONC 34 g/dl (33.0-37.0); MEAN PLATELET VOLUME 12.2 fl (7.4-10.4); MONO # 0.9 K/mm3 (0.1-0.6); MONO % 15.9 % (1.7-9.3); PLATELET COUNT 95 K/mm3 (130-400); RED BLOOD COUNT 2.79 M/mm3 (4.10-5.30); REDCELL DISTRIBUTION WIDTH-CV 13.8 % (11.5-14.5)
[2023-12-02 06:45] LABS: HEMATOCRIT 29.1 % (37.0-47.0)
[2023-12-02 07:00] LABS: CALCIUM 9.7 mg/dL (8.4-10.2); CREATININE, serum 0.75 mg/dL (0.57-1.11)
[2023-12-02] MEDS ORDERED: Dextrose (Glucose) 15 GM (4 x 3.75 GM) Chewable TABLET PACK PO PRN (07:15)
[2023-12-02] MEDS ORDERED: Dextrose 50% Water 25 GM/50 ML SYRINGE IV PRN (07:15)
[2023-12-02] MEDS ORDERED: Glucagon 1 MG VIAL IM PRN (07:15)
--- NOTE | 2023-12-02 08:39 | NUR ---
PATIENT ALERT AND ORIENTED X4. VSS. PATIENT HERE FOR LEFT HIP FRACTURE. DRESSING TO LEFT HIP CHANGED THIS AM AND GAUZE/TEGADERM APPLIED. PATIENT REPORTS PAIN 3/10, DENIES NEED FOR PAIN MEDICATION. IV TO LEFT HAND INT AND FLUSHES WELL. PATIENT ON 2LNC. NO FURTHER NEEDS. CALL LIGHT IN REACH. BED ALARM ON.
[2023-12-02] MEDS ORDERED: ROXICODONE 55 MG/TAB PO (11:56)
[2023-12-02] MEDS ORDERED: NATURE'S BLEND100 M2 PO (11:56)
[2023-12-02] MEDS ORDERED: SENEXON-S 50-81 EACH PO (11:56)
[2023-12-02] MEDS ORDERED: DUO-KAPS1 CAP PO (11:57)
--- NOTE | 2023-12-02 14:44 | NUR ---
PATIENT'S BELONGINGS GATHERED. IV DC'D. PACKET GIVEN TO TRANSPORTER. REPORT CALLED TO ALVIN AT [facility]. NUMBER LEFT WITH NURSE IN ANTICIPATION OF ANY QUESTIONS FOR THIS NURSE.
--- NOTE | 2023-12-02 15:20 | NUR ---
Television Installer Helper was contacted by Nelly at [facility] who advised they have insurance authorization and can accept patient today. PERFECTO met with patient who is agreeable to this plan. Transport set for 1430. PERFECTO faxed negative covid test and discharge orders to [facility]. Discharge Plan: [facility] IPR
[2023-12-02] MEDS ORDERED: Budesonide Neb Susp 0.5 MG/2 ML AMP IH SCH (19:00)
[2023-12-02] MEDS ORDERED: Formoterol Neb Soln 20 MCG/2 ML UD IH SCH (19:00)
== END 2023-12-02 14:44 | disposition swing bed (61) | DRG 480 ==
LOC: COL.ER 03:18 → SURG 06:45
PROVIDERS: Emergency Medicine; Orthopaedic Surgery; Physician Assistant; ADMIT Internal Medicine
PROC: 0QS734Z Reposition Left Upper Femur with Internal Fixation Device, Percutaneous Approach (ICD-10-PCS; principal; 2023-11-26 14:00)
DX: S72.092A Other fracture of head and neck of left femur, initial encounter for closed fracture (principal); J96.01 Acute respiratory failure with hypoxia; J44.1 Chronic obstructive pulmonary disease with (acute) exacerbation; F10.239 Alcohol dependence with withdrawal, unspecified; W18.30XA Fall on same level, unspecified, initial encounter; G47.34 Idiopathic sleep related nonobstructive alveolar hypoventilation; I10 Essential (primary) hypertension; D75.89 Other specified diseases of blood and blood-forming organs; D69.6 Thrombocytopenia, unspecified; Z72.0 Tobacco use; R79.89 Other specified abnormal findings of blood chemistry
CPT/HCPCS: A4314; A9284; C1713; J0690; J1100; J1170; J1815; J2060; J2250; J2270; J2405; J2704; J2795; J3010; J7030; J7120; J7512

== ENCOUNTER 2023-12-25 14:34 | Emergency (ER) | payer OTHER ==
[~2023-12-25] VITALS: Ht 175.3 cm; Wt 55.5 kg
[~2023-12-25 14:34] MED LIST changes: +SENEXON-S 50-81 EACH PO
[2023-12-25 14:35] VITALS: TEMP 98
[2023-12-25] MEDS ORDERED: NS 1,000 ML IV ONE (15:00)
[2023-12-25] MEDS ORDERED: Pantoprazole 40 MG in NS 10 ML IV ONE (15:00)
[2023-12-25] MEDS ORDERED: LORazepam 2 MG/ML 1 ML VIAL IV ONE (15:00)
[2023-12-25] MEDS ORDERED: Ondansetron 4 MG/2 ML VIAL IV ONE ×2 (15:00)
[2023-12-25] MEDS ORDERED: Acetaminophen 500 MG TAB PO ONE (16:45)
[2023-12-25 17:30] VITALS: BP 110/80; PULSE 96
== END 2023-12-25 17:45 | disposition home or self-care (01) ==
LOC: COL.ER 14:34
DX: M25.552 Pain in left hip (principal); F10.20 Alcohol dependence, uncomplicated; Z98.890 Other specified postprocedural states; Z88.0 Allergy status to penicillin
CPT/HCPCS: C9113; J2060; J2405; J7030

== ENCOUNTER 2024-06-25 02:04 | Emergency (ER) | payer OTHER ==
[~2024-06-25] VITALS: Ht 175.3 cm; Wt 59.1 kg
[2024-06-25 02:07] VITALS: TEMP 98.7
[2024-06-25 02:30] LABS: BASO # 0.1 K/mm3 (0.0-0.2); BASO % 0.9 % (0.0-2.0); EOS # 0.1 K/mm3 (0.0-0.7); EOS % 1.2 % (0.0-4.0); GRAN # 3.4 K/mm3 (1.4-6.5); GRAN % 58.1 % (42.2-75.2); LYMPH # 1.8 K/mm3 (1.2-3.4); MEAN CELL VOLUME 100 fl (80.0-100.0); MEAN CORPUSCULAR HEMOGLOBIN 34 pg (27-31); MEAN CORPUSCULAR HGB CONC 34 g/dl (33.0-37.0); MEAN PLATELET VOLUME 10.2 fl (7.4-10.4); MONO # 0.5 K/mm3 (0.1-0.6); MONO % 8.1 % (1.7-9.3); PLATELET COUNT 128 K/mm3 (130-400); RED BLOOD COUNT 3.56 M/mm3 (4.10-5.30); REDCELL DISTRIBUTION WIDTH-CV 18.6 % (11.5-14.5)
[2024-06-25 02:34] LABS: HEMATOCRIT 35.6 % (37.0-47.0)
[2024-06-25 02:51] LABS: ALBUMIN 3.6 g/dL (3.4-4.8); BILIRUBIN,TOTAL 0.7 mg/dL (0.2-1.2); CALCIUM 9.1 mg/dL (8.4-10.2); POTASSIUM 3.4 mEq/L (3.5-4.5); TOTAL PROTEIN 7.7 g/dl (6.2-8.1)
[2024-06-25 04:15] VITALS: BP 124/80; PULSE 68
== END 2024-06-25 04:15 | disposition home or self-care (01) ==
LOC: COL.ER 02:04
PROVIDERS: Emergency Medicine
DX: S01.81XA Laceration without foreign body of other part of head, initial encounter (principal); F10.29 Alcohol dependence with unspecified alcohol-induced disorder; Y90.8 Blood alcohol level of 240 mg/100 ml or more; X58.XXXA Exposure to other specified factors, initial encounter; Y92.009 Unspecified place in unspecified non-institutional (private) residence as the place of occurrence of the external cause